=== PATIENT | female | born 1970 | race Caucasian/White ===

== ENCOUNTER 2021-01-22 10:06 | Outpatient (REF) | payer MEDICAID, SELFPAY ==
--- NOTE | ~2021-01-22 | MM_ITS ---
EXAMINATION: MM DIAGNOSTIC DIGITAL BREAST TOMOSYNTHESIS, BILATERAL US DIAGNOSTIC ULTRASOUND BREAST, LEFT CLINICAL INFORMATION: Due for yearly exam. Patient notes palpable area of concern upper outer left breast. Prior history benign right stereotactic biopsy 2014 for calcifications. The lifetime risk of breast cancer based on the Tyrer-Cuzick Model is 5%. COMPARISON: Mammography: 09/15/2019, 09/13/2018, 09/09/2017. TECHNIQUE: Digital breast tomosynthesis is performed in both the craniocaudal and mediolateral oblique views along with computer-aided detection (CAD). Synthesized 2D images are generated from the tomosynthesis. Additional spot left CC and spot left ML views are obtained. Ultrasound left breast is targeted to the area of clinical concern upper outer quadrant. Grayscale imaging and color Doppler are performed without and with harmonics. Additional imaging left axilla also included. FINDINGS: The breasts are heterogeneously dense, which may obscure small masses (ACR BI-RADS breast composition Category c). The right breast shows no interval mass or architectural abnormality. There are regional calcifications again noted upper outer quadrant right breast similar to prior diagnostic exam 2018. There is biopsy clip marker upper outer quadrant. 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 In the area of concern left upper outer quadrant, there is interval parenchymal asymmetry, representing change from prior study. The axilla and skin contours are unremarkable. Ultrasound left breast demonstrates irregular hypoechoic heterogeneous mass corresponding to the area of palpable concern measuring at least 3.3 cm in greatest dimension with scattered inhomogeneous posterior shadowing. Additional imaging left axilla shows no lymphadenopathy. Results are discussed with the patient at time of visit. Ultrasound-guided core biopsy of the left breast mass is recommended. MM/MM tomosynthesis diagnostic BI IMPRESSION: 1. Left: Irregular mass in the area of palpable concern upper outer quadrant. 2. Right: No mammographic evidence of malignancy. ASSESSMENT: BI-RADS 5: Highly Suggestive of Malignancy RECOMMENDATION: Ultrasound-guided core biopsy mass left breast upper outer quadrant. This patient's information was entered into a reminder system with a target due date for their next mammogram.
== END 2021-01-22 10:07 | disposition home or self-care (01) ==
LOC: HO.MAMMO 10:06
PROVIDERS: PCP Advanced Practice Midwife; Visit Provider Advanced Practice Midwife
DX: N63.21 Unspecified lump in the left breast, upper outer quadrant (principal)
CPT/HCPCS: 76642; 77062; 77066

== ENCOUNTER → 2021-01-24 15:36 | Outpatient (BNVA) | payer MEDICAID, SELFPAY | PROVIDERS: PCP Advanced Practice Midwife; Visit Provider Surgery | DX: R92.8 Other abnormal and inconclusive findings on diagnostic imaging of breast (principal) | CPT/HCPCS: 99202 ==

== ENCOUNTER 2021-01-29 07:40 | Outpatient (REF) | payer MEDICAID, SELFPAY ==
--- NOTE | ~2021-01-29 | MM_ITS ---
EXAMINATION: ULTRASOUND GUIDED CORE BIOPSY BREAST, LEFT POST PROCEDURE DIGITAL MAMMOGRAM, LEFT CLINICAL INFORMATION: Irregular hypoechoic mass upper outer left breast 3.3 cm. COMPARISON: Mammography and targeted left breast ultrasound 01/22/2021. FINDINGS: Proper informed consent is obtained from the patient after discussion of the procedure, potential risks and complications, and alternatives. Patient was given an opportunity for questions. The patient appeared to understand. The patient consented to the procedure and signed the consent form. GUIDANCE: Ultrasound-guided; aseptic technique. LESION: Irregular hypoechoic mass upper outer left breast 3.3 cm. APPROACH: Oblique lateral medial. ANESTHESIA: 10 mL 1% lidocaine. DERMATOTOMY: Single skin ade dermatotomy performed. NEEDLE: 14-gauge Achieve core biopsy device with 13.5-gauge co-axial guide needle. CORES: 5. CLIP: HydroMARK; shape: butterfly. POST PROCEDURE UNILATERAL DIGITAL MAMMOGRAM: The post biopsy mammogram is performed in separate room using separate digital mammography equipment from the biopsy procedure. CC and ML views are obtained. The breasts are heterogeneously dense, which may obscure small masses (breast composition category: c). The clip marker is in position. No gross hematoma. The patient tolerated the procedure well. No immediate complications. Home instructions reviewed with the patient. Final pathology results are pending. MM/MM diagnostic mammo unilat LT IMPRESSION: 1. Status post ultrasound-guided core biopsy left breast. 2. Clip placed: HydroMARK; shape: butterfly. 3. Pathology pending. An addendum report will be issued.
== END 2021-01-29 07:41 | disposition home or self-care (01) ==
LOC: HO.MAMMO 07:40
PROVIDERS: Visit Provider Surgery
DX: R92.8 Other abnormal and inconclusive findings on diagnostic imaging of breast (principal); N63.21 Unspecified lump in the left breast, upper outer quadrant; C50.912 Malignant neoplasm of unspecified site of left female breast; Z17.1 Estrogen receptor negative status [ER-]
CPT/HCPCS: 19083; 77065; 88305; 88360

== ENCOUNTER → 2021-02-01 09:21 | Outpatient (BNVA) | payer MEDICAID, SELFPAY | PROVIDERS: PCP Advanced Practice Midwife; Visit Provider Surgery | DX: C50.912 Malignant neoplasm of unspecified site of left female breast (principal) | CPT/HCPCS: 99212 ==

== ENCOUNTER 2021-02-14 06:56 | Day surgery (SDC) | payer MEDICAID, SELFPAY ==
[2021-02-07 13:34] VITALS: BMI 32.8
--- NOTE | 2021-02-13 09:16 | P.CONAN_ITS ---
Documented by User: Meredith Leigh 02/13/21 09:18 HPI - Anesthesia Eval Consult details Narrative: 50yo F for Left Breast Lumpectomy, Sentinal Node, Needle Loc PMFSH Active Problems Active Problems: All Active Problems (Updated 02/07/21 @ 13:40 by Chichi Rosa) Abnormal mammogram of left breast (Acute) Invasive ductal carcinoma of left breast (Acute) Past Medical History Medical History Asthma Depression GERD (gastroesophageal reflux disease) HIV (human immunodeficiency virus infection) Surgical History Surgical History History of excision of mass History of hysterectomy Social History Social History Are you a primary career technical education instructor to a significant other at home: No Do you presently have visiting nurse or other home services: No Alcohol intake: never Smoking Status: Never smoker Use of substances other than those prescribed or required for medical reasons: No Have you been hit, kicked, punched, or otherwise hurt by someone within the past year? If so, by whom?: No Advance Directives Information Provided: No Recently lost weight without trying: No Meds Allergies Allergy/AdvReac Type Severity Reaction Status Date / Time codeine [Codeine] Allergy Mild RASH Verified 02/14/21 07:05 Home Medications Medication Instructions Recorded Confirmed Last Taken Type albuterol sulfate 1 amp INHALATION Q6H PRN 02/07/21 02/07/21 Unknown History albuterol sulfate [ProAir HFA] 2 puff INHALATION Q4H PRN 02/07/21 02/07/21 Unknown History cetirizine 1 tab PO BEDTIME 02/07/21 02/07/21 Unknown History citalopram 1.5 tab PO BEDTIME 02/07/21 02/07/21 Unknown History clonidine HCl 0.2 mg PO BEDTIME 02/07/21 02/07/21 Unknown History dolutegravir [Tivicay] 1 tab PO DAILY 02/07/21 02/07/21 Unknown History emtricitabine-tenofovir alafen 1 tab PO DAILY 02/07/21 02/07/21 02/14/21 06:00 History [Descovy] fluticasone propionate 1 spray INTRANASAL BID 02/07/21 02/07/21 Unknown History lorazepam 1 tab PO BEDTIME PRN 02/07/21 02/07/21 Unknown History montelukast 1 tab PO BEDTIME 02/07/21 02/07/21 Unknown History pantoprazole 1 tab PO QAM 02/07/21 02/07/21 02/14/21 06:00 History zolpidem 1 tab PO BEDTIME PRN 02/07/21 02/07/21 Unknown History Exam Exam Date and Time: February 13, 2021 0916 Height,Weight and Vital Signs: Height 5 ft 4 in Weight 86.6 kg Assessment and Plan Assessment Anesthesia Assessment: Chart Reviewed Documented by User: Jenna Browning 02/14/21 09:30 [facility] Past Medical History Medical History Asthma Depression GERD (gastroesophageal reflux disease) HIV (human immunodeficiency virus infection) Surgical History Surgical History History of excision of mass History of hysterectomy Social History Social History Are you a primary career technical education instructor to a significant other at home: No Do you presently have visiting nurse or other home services: No Alcohol intake: never Smoking Status: Never smoker Use of substances other than those prescribed or required for medical reasons: No Have you been hit, kicked, punched, or otherwise hurt by someone within the past year? If so, by whom?: No Advance Directives Information Provided: No Recently lost weight without trying: No Meds Allergies Allergy/AdvReac Type Severity Reaction Status Date / Time codeine [Codeine] Allergy Mild RASH Verified 02/14/21 07:05 Home Medications Medication Instructions Recorded Confirmed Last Taken Type albuterol sulfate 1 amp INHALATION Q6H PRN 02/07/21 02/07/21 Unknown History albuterol sulfate [ProAir HFA] 2 puff INHALATION Q4H PRN 02/07/21 02/07/21 Unknown History cetirizine 1 tab PO BEDTIME 02/07/21 02/07/21 Unknown History citalopram 1.5 tab PO BEDTIME 02/07/21 02/07/21 Unknown History clonidine HCl 0.2 mg PO BEDTIME 02/07/21 02/07/21 Unknown History dolutegravir [Tivicay] 1 tab PO DAILY 02/07/21 02/07/21 Unknown History emtricitabine-tenofovir alafen 1 tab PO DAILY 02/07/21 02/07/21 02/14/21 06:00 History [Descovy] fluticasone propionate 1 spray INTRANASAL BID 02/07/21 02/07/21 Unknown History lorazepam 1 tab PO BEDTIME PRN 02/07/21 02/07/21 Unknown History montelukast 1 tab PO BEDTIME 02/07/21 02/07/21 Unknown History pantoprazole 1 tab PO QAM 02/07/21 02/07/21 02/14/21 06:00 History zolpidem 1 tab PO BEDTIME PRN 02/07/21 02/07/21 Unknown History Exam Airway Mallampati Class: II TM Dist: >3cm Neck ROM: Full Assessment and Plan Assessment Anesthesia Assessment: Anesthesia Plan Discussed and Chart Reviewed Final Anesthetic Review NPO: Yes ASA Class: III Final Preanesthetic Review: No Changes in Pt Med Stat, Meds/Allgs Chart Reviewed, Consent Obtained/Reviewed and Anes Risks/Benef Reviewed Patient Risk: Intermediate Procedure Risk: Low Assessment/Block/Sedation in SS: Assess/Block/Sedation-SS Anesthetic Plan Anesthetic Plan: GA Disposition: Standard PACU
[2021-02-14] VITALS (9 sets, daily range): BP systolic 119–140; BP diastolic 62–75; PULSE 72–86; RESP 16–20; TEMP 36.1–37.1; O2SAT 96–100
--- NOTE | ~2021-02-14 | NM_ITS ---
EXAMINATION: NM LYMPH SCINTIGRAPHY CLINICAL INFORMATION: Left breast cancer. COMPARISON: None TECHNIQUE: Following explaining left breast sentinel node procedure, benefits and risk, a written consent was obtained by Dr. Longoria. The area of the left breast areola was cleaned and draped in usual sterile manner. 0.5 mCi of LYMPHOSEEK divided in 4 equal doses was injected subcutaneous in 4 quadrants around the left breast areola. Imaging was obtained 30 minutes later. Patient tolerated the procedure well. FINDINGS: There is adequate isotope activity seen around the left breast areola. There are 2 lymph nodes visualized in superior left breast and left axilla. NM/NM sentinel node w imaging IMPRESSION: Two lymph node activity seen in the left superior breast and left anterior axilla on left breast lymphoscintigraphy.
--- NOTE | ~2021-02-14 | MM_ITS ---
EXAMINATION: MM MAMMOGRAM GUIDED NEEDLE LOCALIZATION BREAST, LEFT MM NEEDLE LOCALIZATION SPECIMEN FROM THE LEFT BREAST CLINICAL INFORMATION: Left breast cancer COMPARISON: January 29, 2021 and January 22, 2021 TECHNIQUE NEEDLE LOC: Proper informed consent is obtained from the patient after discussion of the procedure, potential risks and complications, and alternatives including declining the procedure today. Patient was given an opportunity for questions. The patient appeared to understand. The patient consented to the procedure and signed the consent form. GUIDANCE: Digital mammography. APPROACH: Superior. TARGET: Clip with mass. ANESTHESIA: lidocaine 1%: 4 mL. LOCALIZATION MARKER: [place] [employer]. 7.5 cm long The skin is prepped and local anesthesia administered. The needle is positioned and position assessed with mammography. The wire is hooked into position. Alloway needle protector placed. The patient tolerated the procedure well and had no immediate complication. Following the procedure, 4% lidocaine ointment was administered to the left areola and covered with Tegaderm in anticipation of nuclear lymphoscintigraphy injection for sentinel lymph node mapping. TECHNIQUE SPECIMEN RADIOGRAPH: Imaging of the excised specimen is performed using digital mammography in 1 view. FINDINGS SPECIMEN RADIOGRAPH: The specimen shows the needle and hookwire are delivered intact. The biopsy clip marker is identified in the specimen. Results were called to Dr. Marlon Li in the operating room at the time of imaging. MM/MM needle loc LT IMPRESSION: 1. Status post left breast needle localization with wire hooked into position. 2. Post operative specimen radiograph obtained.
[2021-02-14] MEDS: Lactated Ringers 1,000 ML 100 ML IVCONT (07:51)
--- NOTE | 2021-02-14 07:51 | MHC.SHP ---
Pre-Procedural Eval Section A The patient is an INPATIENT: No Changes since office visit: Yes Patient answered all questions; No Cold of Flu in the past 2 weeks, No New Medical Problems and No Changes in Medication The History & Physical has been completed within 30 days and I have reviewed it.: Yes Section B Chief Complaint: Invasive ductal carcinoma of left breast Allergies: Allergies Allergy/AdvReac Type Severity Reaction Status Date / Time codeine [Codeine] Allergy Mild RASH Verified 02/14/21 07:05 Plan Diagnosis/Plan: Unchanged I have reviewed the history and physical and performed a pertinent physical examination on my patient. No changes have occurred unless specified.
--- NOTE | 2021-02-14 14:24 | P.OP_ITS ---
Operative Note Operative Note Date of Service: 02/14/21 Narrative: Preoperative diagnosis: Invasive ductal carcinoma left breast Postoperative diagnosis: Same Procedure: Left breast lumpectomy with needle localization, sentinel node biopsy left axilla Surgeon: Marlon Li MD Director Of Casework: None Anesthesia: General LMA Indications for procedure: 50-year-old female presenting with a palpable mass in the left breast at the upper outer quadrant status post ultrasound-guided co re biopsy. Pathology revealed an invasive ductal carcinoma, triple negative measuring approximately 3 cm on examination. She presents today for lumpectomy and sentinel node biopsy. Operative findings: Large mass at least 4-5 cm in diameter located in the upper outer quadrant, single sentinel node identified left axilla Specimen: 1. Left breast lumpectomy, 2. [place] node, 3. Inferior medial border wider excision. Estimated blood loss: 25 mL Procedure details: Patient was brought to the OR and placed in a supine position. After administering general anesthesia, the left breast was prepped with ChloraPrep draped in a sterile fashion. A surgical time-out was called and the consent confirmed. Preoperative antibiotics were administered and the dye boots were in place. Local anesthesia consisting of 0.25% Sensorcaine with epinephrine was then infiltrated around the localizing needle. Curvilinear incision was made around the entrance of the needle and carried out through subcutaneous tissue. Superior and inferior skin flaps were then created. The lesion came close to the skin and the lesion was shaved off the skin using electrocautery. A core of tissue surrounding the needle was then dissected using a combination of sharp and electrocautery dissection. Every attempt was made to dissect wide of the palpable mass to assure complete removal of the specimen. The specimen was then marked with a long suture on the lateral margin, short suture on the superior margin and a loop suture in the deep margin. Specimen was sent to Radiology department for specimen x-ray followed by gross pathology. Attention was then directed to the left axilla. Using the gamma probe the area of increased reactivity was identified in the mid axilla. Local anesthesia was then infiltrated in a transverse incision made below the axillary hair line. Incision was then made in a curvilinear fashion at this location carried out through subcutaneous tissue past the clavipectoral fascia and into the axillary compartment. Gamma probe was then used to identify area of increased reactivity. A single node was identified with 811 counts. This was sent as sentinel node 1. Additional examination of the axilla revealed no other areas of radio activity. No palpable nodes were identified. The wounds were then irrigated with saline solution. Clavipectoral fascia was reapproximated using interrupted 3-0 Polysorb sutures. Dermis was reapproximated using interrupted 3-0 Polysorb sutures. Skin was then closed using a running subcuticular 4 0 Polysorb suture. The pathology was reviewed with the pathologist in the laboratory. Margins appeared close to the anterior, medial and inferior margins. As the lesion was shaved off skin no further margin was possible in the anterior margin. A wider excision of the inferior medial margin was then performed. This was also sent to pathology. After assuring complete removal of the specimen, the wounds were checked for hemostasis. Wounds were irrigated with saline and suctioned dry. Deep breast tissue was then reapproximated using interrupted 3-0 Polysorb sutures. Dermis was reapproximated using interrupted 3-0 Polysorb sutures. Skin was then closed using a running subcuticular 4-0 Polysorb suture. Steri-Strips 2 x 2 gauze and Tegaderm were then applied. The patient tolerated the procedure well. Sponge, instrument, and needle counts reported as correct. The patient was transferred to PACU in stable condition. Breast [place] Node Biopsy Substrate(s) used for sentinel node biopsy in the non-neoadjuvant setting: Radiotracer Substrate(s) used for sentinel node biopsy in the neoadjuvant setting: N/A All colored nodes or non-colored nodes present at the end of a dye filled lymphatic channel were removed, if dye was used as the substrate for localization: N/A All significantly radioactive nodes were removed, if radionuclide was used as the substrate for localization: Yes All palpably suspicious nodes were removed, if present: Yes If clips were placed in pathology-involved nodes, those nodes were identified and removed: N/A General Surg. - Synoptic Notes Breast [place] Node Biopsy Substrate(s) used for sentinel node biopsy in the non-neoadjuvant setting: Radiotracer Substrate(s) used for sentinel node biopsy in the neoadjuvant setting: N/A All colored nodes or non-colored nodes present at the end of a dye filled lymphatic channel were removed, if dye was used as the substrate for localization: N/A All significantly radioactive nodes were removed, if radionuclide was used as the substrate for localization: Yes All palpably suspicious nodes were removed, if present: Yes If clips were placed in pathology-involved nodes, those nodes were identified and removed: N/A
[2021-02-14] MEDS: fentaNYL citrate/PF 100 MCG/2 ML VIAL 50 MCG IVPUSH ×2 (14:39→14:48)
[2021-02-14] MEDS: Acetaminophen 325 MG TABLET 650 MG PO (14:39)
[2021-02-14] MEDS: oxyCODONE HCl Immed Release 5 MG TABLET PO (14:40)
== END 2021-02-14 15:31 | disposition home or self-care (01) ==
PROVIDERS: Visit Provider Surgery
PROC: (CPT 19301; principal; 2021-02-14 11:50)
PROC: (CPT 19301; 2021-02-14 11:50)
PROC: (CPT 19301; 2021-02-14 11:50)
DX: C50.412 Malignant neoplasm of upper-outer quadrant of left female breast (principal); C77.3 Secondary and unspecified malignant neoplasm of axilla and upper limb lymph nodes; Z17.1 Estrogen receptor negative status [ER-]; J45.909 Unspecified asthma, uncomplicated; Z79.51 Long term (current) use of inhaled steroids; B20 Human immunodeficiency virus [HIV] disease; Z79.899 Other long term (current) drug therapy; Z88.8 Allergy status to other drugs, medicaments and biological substances
CPT/HCPCS: 19301; 38525; 19281; 78195; 88307; 88329; 88360; A4648; A9520; J0690; J1100; J2250; J2405; J3010

== ENCOUNTER → 2021-02-22 09:22 | Outpatient (BNVA) | payer MEDICAID, SELFPAY | PROVIDERS: PCP Advanced Practice Midwife; Visit Provider Surgery | DX: C50.912 Malignant neoplasm of unspecified site of left female breast (principal) | CPT/HCPCS: 99212 ==

== ENCOUNTER 2021-02-27 08:17 | Inpatient (IN) | payer MEDICAID, SELFPAY ==
--- NOTE | 2021-02-26 08:58 | P.CONAN_ITS ---
Documented by User: Meredith Abraham 02/26/21 09:03 HPI - Anesthesia Eval Consult details Narrative: 50yo F for Left Mastectomy Modified Radical s/p lumpectomy 02/14/21 with GA-LMA [facility] Active Problems Active Problems: All Active Problems (Updated 02/07/21 @ 13:40 by Chichi Rosa) Abnormal mammogram of left breast (Acute) Invasive ductal carcinoma of left breast (Acute) Past Medical History Medical History Asthma Depression GERD (gastroesophageal reflux disease) HIV (human immunodeficiency virus infection) Surgical History Surgical History History of excision of mass History of hysterectomy History of lumpectomy of left breast Social History Social History Alcohol intake: never Smoking Status: Never smoker Use of substances other than those prescribed or required for medical reasons: No Meds Allergies Allergy/AdvReac Type Severity Reaction Status Date / Time codeine [Codeine] Allergy Mild RASH Verified 02/27/21 08:27 Home Medications Medication Instructions Recorded Confirmed Last Taken Type Descovy 1 tab PO DAILY 02/07/21 02/07/21 02/27/21 07:00 History Tivicay 1 tab PO DAILY 02/07/21 02/07/21 02/27/21 07:00 History albuterol sulfate 1 amp INHALATION Q6H PRN 02/07/21 02/07/21 Unknown History albuterol sulfate [ProAir HFA] 2 puff INHALATION Q4H PRN 02/07/21 02/07/21 Unknown History cetirizine 1 tab PO BEDTIME 02/07/21 02/07/21 Unknown History citalopram 1.5 tab PO BEDTIME 02/07/21 02/07/21 Unknown History clonidine HCl 0.2 mg PO BEDTIME 02/07/21 02/07/21 Unknown History lorazepam 1 tab PO BEDTIME PRN 02/07/21 02/07/21 Unknown History montelukast 1 tab PO BEDTIME 02/07/21 02/07/21 Unknown History pantoprazole 1 tab PO QAM 02/07/21 02/07/21 02/14/21 06:00 History zolpidem 1 tab PO BEDTIME PRN 02/07/21 02/07/21 Unknown History Exam Exam Date and Time: February 26, 2021 0858 Assessment and Plan Assessment Anesthesia Assessment: Chart Reviewed Documented by User: Dayanna Blanca 02/27/21 09:02 [facility] Past Medical History Medical History Asthma Depression GERD (gastroesophageal reflux disease) HIV (human immunodeficiency virus infection) Surgical History Surgical History History of excision of mass History of hysterectomy History of lumpectomy of left breast Social History Social History Alcohol intake: never Smoking Status: Never smoker Use of substances other than those prescribed or required for medical reasons: No Meds Allergies Allergy/AdvReac Type Severity Reaction Status Date / Time codeine [Codeine] Allergy Mild RASH Verified 02/27/21 08:27 Home Medications Medication Instructions Recorded Confirmed Last Taken Type Descovy 1 tab PO DAILY 02/07/21 02/07/21 02/27/21 07:00 History Tivicay 1 tab PO DAILY 02/07/21 02/07/21 02/27/21 07:00 History albuterol sulfate 1 amp INHALATION Q6H PRN 02/07/21 02/07/21 Unknown History albuterol sulfate [ProAir HFA] 2 puff INHALATION Q4H PRN 02/07/21 02/07/21 Unknown History cetirizine 1 tab PO BEDTIME 02/07/21 02/07/21 Unknown History citalopram 1.5 tab PO BEDTIME 02/07/21 02/07/21 Unknown History clonidine HCl 0.2 mg PO BEDTIME 02/07/21 02/07/21 Unknown History lorazepam 1 tab PO BEDTIME PRN 02/07/21 02/07/21 Unknown History montelukast 1 tab PO BEDTIME 02/07/21 02/07/21 Unknown History pantoprazole 1 tab PO QAM 02/07/21 02/07/21 02/14/21 06:00 History zolpidem 1 tab PO BEDTIME PRN 02/07/21 02/07/21 Unknown History Exam Airway Mallampati Class: II TM Dist: >3cm Neck ROM: Full Loose/Missing/Broken Teeth: No Heart: RRR Lungs: CTA Assessment and Plan Assessment Anesthesia Assessment: Anesthesia Plan Discussed and Chart Reviewed Final Anesthetic Review NPO: Yes ASA Class: II Final Preanesthetic Review: Meds/Allgs Chart Reviewed, Consent Obtained/Reviewed and Anes Risks/Benef Reviewed Patient Risk: Low Procedure Risk: Intermediate Anesthetic Plan Anesthetic Plan: GA Disposition: Standard PACU
[2021-02-27] VITALS (17 sets, daily range): BP systolic 117–150; BP diastolic 63–81; PULSE 73–105; RESP 11–20; TEMP 36.1–36.9; O2SAT 95–99; BMI 29.0
[2021-02-27] MEDS: Lactated Ringers 1,000 ML 100 ML IVCONT ×2 (08:58→15:34)
[2021-02-27 09:01] LABS: COVID-19 Test Negative (Negative); IDNOW Serial# 9DD0AD1C
--- NOTE | 2021-02-27 09:34 | MHC.SHP ---
Pre-Procedural Eval Section A The patient is an INPATIENT: No Changes since office visit: Yes Patient answered all questions; No Cold of Flu in the past 2 weeks, No New Medical Problems and No Changes in Medication The History & Physical has been completed within 30 days and I have reviewed it.: Yes Section B Chief Complaint: S/P Left Modified Radical Mastectomy Allergies: Allergies Allergy/AdvReac Type Severity Reaction Status Date / Time codeine [Codeine] Allergy Mild RASH Verified 02/27/21 08:27 Plan Diagnosis/Plan: Unchanged I have reviewed the history and physical and performed a pertinent physical examination on my patient. No changes have occurred unless specified.
--- NOTE | 2021-02-27 11:57 | W.PM.OPN ---
Operative Note Operative Note Date of Service: 02/27/21 Narrative: Preoperative diagnosis: Invasive ductal carcinoma left breast Postoperative diagnosis: Same Procedure: Left modified radical mastectomy Surgeon: Marlon Li MD Rolling Machine Tender: Donato Oneill MD Anesthesia: General LMA Indications for procedure: 50-year-old female presenting with a recently identified invasive ductal carcinoma in the upper outer quadrant of the left breast. She previously underwent a left breast lumpectomy with sentinel node biopsy which revealed a grade 3 invasive ductal carcinoma, 4 cm in diameter with positive anterior margins and 1 positive sentinel node. She presents today for modified radical mastectomy. Operative findings: Patient was found to have a well-healed incision in the upper outer quadrant of the left breast. A left axillary incision was also identified. Several enlarged lymph nodes were palpable within the axilla. A single nodule was noted in the lower flap of the breast which was sent for frozen section. This was noted to be benign. Specimen: Left breast, including axillary dissection Estimated blood loss: 20 mL Complications: None Procedure details: Patient was brought to the OR and placed in the position after administering general anesthesia the patient's left breast was prepped with ChloraPrep and draped in a sterile fashion. The prep included the axilla and upper arm. A surgical time-out was called the consent confirmed. Patient received preoperative antibiotics and Venodyne boots were placed. Local anesthesia consisting of 0.5% Sensorcaine with epinephrine was infiltrated around the breast. An elliptical incision was then created oriented obliquely from the lateral sternum to the axilla including both previous incisions. The incision was carried out through subcutaneous tissue and up to the breast capsule. Beginning in the superior electrocautery was used to dissect the breast tissue from the skin extending beyond the previous incision up to the base of the clavicle. Dissection was then continued posteriorly to the chest wall. The dissection was started from medial to lateral, superficial to deep. When the superior skin flap was completely dissected up to the clavicle attention was then directed to the inferior skin flap which was similarly dissected using electrocautery dissecting the subcutaneous tissue off the breast tissue down to the inferior costal margin. At this point the breast was dissected off the chest wall again beginning medial to lateral, superior to inferior. Hemostasis was assured all times using electrocautery and free ties of 3-0 Polysorb. Dissection was continued around the pectoralis muscle including the pectoralis fascia. When the edge of pectoralis major was identified dissection was continued laterally to the pectoralis minor including Sheridan's nodes. The clavipectoral fascia was then entered in the axillary contents dissected both the level 1 and level 2 nodes were included. A rim of lymphatic tissue was kept against the axillary vein. The long thoracic and thoracodorsal nerves were identified and preserved. Intercostal brachialis nerve was sacrificed due to its proximity to the tumor. Dissection was continued laterally towards the latissimus Lorenzo muscle which was also identified and dissected free. The specimen was then removed and sent to pathology for further examination. Wounds were then thoroughly irrigated with saline solution and suctioned dry. The chest wall and skin flaps were checked for hemostasis. Axilla was also checked for hemostasis. Two large (# 10) Ehsan-Sharma drains were then placed 1 in the inferior skin flap and the 2nd into the axilla. These were brought out through a separate stab wound in the lateral chest wall. These were secured to the skin using a 3-0 nylon suture. Skin edges were then reapproximated using interrupted 3 0 Polysorb sutures in dermis. Skin was then closed using skin elizabeth. Sterile dressings including sterile gauze and Tegaderm were then applied. The Ehsan-Sharma drains were connected to bulb suction. The patient tolerated the procedure well. Sponge, instrument, needle counts were reported as correct. Patient was transferred to PACU in stable condition.
[2021-02-27] MEDS: Acetaminophen 325 MG TABLET 650 MG PO (12:23)
[2021-02-27] MEDS: oxyCODONE HCl Immed Release 5 MG TABLET PO ×3 (12:24→22:42)
[2021-02-27] MEDS: fentaNYL citrate/PF 100 MCG/2 ML VIAL 50 MCG IVPUSH ×3 (12:30→12:49)
[2021-02-27] MEDS: ondansetron HCL 4 MG/2 ML VIAL IVPUSH (19:34)
[2021-02-27] MEDS: Temazepam 15 MG CAPSULE PO (21:35)
[2021-02-28] MEDS: Lactated Ringers 1,000 ML 100 ML IVCONT ×3 (01:29→23:32)
[2021-02-28 04:00] VITALS: BP 123/75; PULSE 94; RESP 20; TEMP 36.9; O2SAT 99
[2021-02-28] MEDS: Morphine Sulfate 4 MG/ML CARTRIDGE IVPUSH ×5 (04:45→21:10)
--- NOTE | 2021-02-28 07:15 | P.PNGS_ITS ---
Subjective Subjective Date of Service: 02/28/21 Interval history: Late entry: Reports pain in the left axilla; LUAN drains with sanguinous discharge, high output over night. Patient reports feeling dizzy when ambulating. Physical Exam Vital Signs: Vital Signs: Last Vital Signs Temp 98.2 F 03/01/21 03:46 Pulse 76 03/01/21 03:46 Resp 16 03/01/21 03:46 BP 111/54 L 03/01/21 03:46 Pulse Ox 96 03/01/21 03:46 Body Mass Index 29.0 Const: General: cooperative and healthy appearing Chest: Other: Dressings with some bloody discharge, chest wall tender to palpation. LUAN intact; sanguinous output Chest/axillae images: 1. Resp: Effort & Inspection: normal respiratory effort GI: Inspection: Yes normal to inspection Extrem: General: Yes no clubbing, cyanosis or edema Progress Note: A&P Assessment and plan (1) Invasive ductal carcinoma of left breast: Status: Acute Assessment and Plan: Postop day 1 following left modified radical mastectomy. Patient reports chest and axillary discomfort. Ehsan-Faiza are producing sanguinous output which will need to be monitored further. Will check CBC this morning. Start gabapentin for axillary pain. Await pathology results. Fall Risk Details Current Medications: Current Medications Generic Name Dose Route Start Last Admin Trade Name Freq PRN Reason Stop Dose Admin Al Hydroxide/Mg Hydroxide 30 ml 02/27/21 15:17 Magnesium Hydrox/Alum Hydrox 30 Ml Oral.Susp PO Q4H PRN Heartburn/Nausea Albuterol Sulfate 2.5 mg 02/28/21 11:03 Albuterol Sulfate (0.083%) 2.5 Mg/3 Ml Vial.Neb INHALE Q6H PRN Wheezing Albuterol Sulfate 2 puff 02/28/21 11:03 Albuterol Sulfate 90 Mcg 8 Gm Inhaler INHALE Q4H PRN Wheezing Clonidine HCl 0.2 mg 02/28/21 21:00 02/28/21 21:00 Clonidine Hcl 0.1 Mg Tablet PO 0.2 mg BEDTIME [facility]WA Administration Protocol Dolutegravir Sodium 50 mg 03/01/21 09:00 Dolutegravir Sodium 50 Mg Tablet PO DAILY [facility] Emtricitabine/Tenofovir Alafenamide 1 tab 03/01/21 09:00 Emtricitabine/Tenofov Alafenam Tablet PO DAILY [facility] Escitalopram Oxalate 15 mg 02/28/21 21:00 02/28/21 21:01 Escitalopram Oxalate 5 Mg Tablet PO 15 mg BEDTIME [facility] Administration Gabapentin 300 mg 02/28/21 09:00 02/28/21 21:01 Gabapentin 300 Mg Capsule PO 300 mg BID [facility]WA Administration Lactated Ringer's 1,000 mls @ 100 mls/hr 02/27/21 08:30 02/28/21 23:32 Lr IVCONT 100 mls/hr .Q10H [facility] Administration Loratadine 10 mg 02/28/21 21:00 02/28/21 21:01 Loratadine 10 Mg Tablet PO 10 mg BEDTIME [facility] Administration Lorazepam 0.5 mg 02/28/21 11:03 02/28/21 21:03 Lorazepam 0.5 Mg Tablet PO 0.5 mg BEDTIME PRN Administration anxiety Magnesium Hydroxide 30 ml 02/27/21 15:17 Milk Of Magnesia 30 Ml Oral.Susp PO DAILY PRN Constipation Montelukast Sodium 10 mg 02/28/21 21:00 02/28/21 21:01 Montelukast Sodium 10 Mg Tablet PO 10 mg BEDTIME [facility] Administration Morphine Sulfate 4 mg 02/27/21 15:17 02/28/21 21:10 Morphine Sulfate 4 Mg/Ml Cartridge IVPUSH 4 mg Q3H PRN Administration Pain, Severe (Pain Scale 7-10) Omeprazole 20 mg 03/01/21 09:00 Omeprazole 20 Mg Capsule.Dr PO DAILY [facility] Ondansetron HCl 4 mg 02/27/21 15:17 02/27/21 19:34 Ondansetron Hcl 4 Mg/2 Ml Vial IVPUSH 4 mg Q8H PRN Administration Nausea and Vomiting Oxycodone HCl 5 mg 02/27/21 15:17 02/28/21 19:11 Oxycodone Hcl Immed Release 5 Mg Tablet PO 5 mg Q6H PRN Administration Pain, Moderate (Pain Scale 4-6 Pharmacy Consult 1 each 02/27/21 15:17 Consult Rx Perform Med Rec MISCELLANE ONCE PRN Consult order Sodium Chloride 3 ml 02/27/21 16:00 02/28/21 21:01 0.9 % Sodium Chloride Flush 3 Ml Syringe IVFLUSH Not Given QSHIFT [facility] Zolpidem Tartrate 10 mg 02/28/21 11:03 02/28/21 21:00 Zolpidem Tartrate 5 Mg Tablet PO 10 mg BEDTIME PRN Administration Insomnia Time Spent With Patient Time: Total time spent is greater than 50% in coordination of care (as documented) at patient's floor/unit and/or counseling patient: Time with patient: 15 - 24 minutes
[2021-02-28 08:00] VITALS: BP 113/58; PULSE 84; RESP 17; TEMP 37.6; O2SAT 100
[2021-02-28 10:01] LABS: MANUAL DIFF FLAG NO
[2021-02-28 10:05] LABS: Basophils Percent Auto 0.2 % (0-2); Eosinophils Percent Auto 0.2 % (0-4); Hematocrit 28.1 % (37-47); Hemoglobin 9.4 g/dl (12.0-16.0); Imm Gran Abs Auto 0.04 X10*3/uL (0.00-0.03); Imm Gran Pct Auto 0.3 % (0.0-0.4); Lymphocytes Absolute Auto 3.5 X10*3/uL (1.2-4.9); Lymphocytes Percent Auto 27.3 % (20-40); Mean Corpuscular HGB Conc 33.5 g/dl (31.0-35.0); Mean Corpuscular Hemoglobin 31.1 pg (27.0-33.0); Monocytes Absolute Auto 0.9 X10*3/uL (0.1-1.2); Monocytes Percent Auto 6.8 % (2-11); Neutrophils Absolute Auto 8.4 X10*3/uL (2.0-8.3); Neutrophils Percent Auto 65.2 % (45-73); Platelet Count 164 X10*3/uL (160-400); Red Blood Count 3.02 X10*6/uL (4.20-5.50); Red Cell Distribution Width 13.4 % (11.0-16.0); White Blood Count 12.8 X10*3/uL (4.8-10.8)
[2021-02-28 10:12] LABS: INTERNATIONAL NORM RATIO 1.1 (0.9-1.1); Prothrombin Time 13.4 SEC (10.8-13.0)
[2021-02-28] MEDS: oxyCODONE HCl Immed Release 5 MG TABLET PO ×2 (10:57→19:11)
[2021-02-28] MEDS: Gabapentin 300 MG CAPSULE PO ×2 (10:57→21:01)
[2021-02-28 12:00] VITALS: BP 132/62; PULSE 86; RESP 17; TEMP 37.1; O2SAT 98
[2021-02-28 15:40] VITALS: BP 120/56; PULSE 87; RESP 16; TEMP 36.9; O2SAT 98
[2021-02-28 19:21] VITALS: BP 144/73; PULSE 78; RESP 20; TEMP 36.4; O2SAT 98
[2021-02-28] MEDS: Zolpidem Tartrate 5 MG TABLET 10 MG PO (21:00)
[2021-02-28] MEDS: cloNIDine HCL 0.1 MG TABLET 0.2 MG PO (21:00)
[2021-02-28] MEDS: Escitalopram Oxalate 5 MG TABLET 15 MG PO (21:01)
[2021-02-28] MEDS: Loratadine 10 MG TABLET PO (21:01)
[2021-02-28] MEDS: Montelukast Sodium 10 MG TABLET PO (21:01)
[2021-02-28] MEDS: LORazepam 0.5 MG TABLET PO (21:03)
[2021-02-28 23:27] VITALS: BP 111/65; PULSE 88; RESP 16; TEMP 36.7; O2SAT 98
[2021-03-01] VITALS (7 sets, daily range): BP systolic 98–124; BP diastolic 52–65; PULSE 71–93; RESP 15–20; TEMP 36.3–37.2; O2SAT 96–98
[2021-03-01 06:14] LABS: MANUAL DIFF FLAG NO
[2021-03-01 06:39] LABS: Basophils Percent Auto 0.1 % (0-2); Eosinophils Absolute Auto 0.1 X10*3/uL (0.0-0.4); Eosinophils Percent Auto 1.1 % (0-4); Hematocrit 24.8 % (37-47); Hemoglobin 8.1 g/dl (12.0-16.0); Imm Gran Abs Auto 0.02 X10*3/uL (0.00-0.03); Imm Gran Pct Auto 0.3 % (0.0-0.4); Lymphocytes Absolute Auto 3.3 X10*3/uL (1.2-4.9); Lymphocytes Percent Auto 44.4 % (20-40); Mean Corpuscular HGB Conc 32.7 g/dl (31.0-35.0); Mean Corpuscular Hemoglobin 30.8 pg (27.0-33.0); Mean Corpuscular Volume 94.3 fL (80-98); Mean Platelet Volume 12.5 fL (9.4-12.3); Monocytes Absolute Auto 0.6 X10*3/uL (0.1-1.2); Monocytes Percent Auto 8.6 % (2-11); Neutrophils Absolute Auto 3.4 X10*3/uL (2.0-8.3); Neutrophils Percent Auto 45.5 % (45-73); Platelet Count 138 X10*3/uL (160-400); Red Blood Count 2.63 X10*6/uL (4.20-5.50); Red Cell Distribution Width 13.6 % (11.0-16.0); White Blood Count 7.5 X10*3/uL (4.8-10.8)
[2021-03-01] MEDS: Dolutegravir Sodium 50 MG TABLET PO (08:30)
[2021-03-01] MEDS: Omeprazole 20 MG CAPSULE.DR PO (08:30)
[2021-03-01] MEDS: Gabapentin 300 MG CAPSULE PO ×2 (08:30→20:26)
[2021-03-01] MEDS: Emtricitabine/Tenofov Alafenam TABLET 1 TAB PO (08:30)
--- NOTE | 2021-03-01 09:45 | HO.POSTANES ---
Post Anesthesia Evaluation Post Anesthesia Evaluation Vital Signs: Vital Signs Temp Pulse Resp BP Pulse Ox 03/01/21 08:00 98.4 F 71 16 98/52 L 97 03/01/21 03:46 98.2 F 76 16 111/54 L 96 02/28/21 23:27 98.1 F 88 16 111/65 98 Anesthesia: General Mental Status: Awake Nausea/Vomiting: None Hydration: Adequate Anesthesia-Related Issues: No Anes. Related Issues
[2021-03-01] MEDS: Lactated Ringers 1,000 ML 100 ML IVCONT ×2 (10:04→20:26)
--- NOTE | 2021-03-01 10:15 | P.PNGS_ITS ---
Subjective Subjective Date of Service: 03/01/21 Interval history: Overall the patient feels improved but still is having some soreness in the chest wall and axilla. She still does not have much of an appetite and feels dizzy when ambulating. Physical Exam Vital Signs: Vital Signs: Last Vital Signs Temp 98.4 F 03/01/21 08:00 Pulse 71 03/01/21 08:00 Resp 16 03/01/21 08:00 BP 98/52 L 03/01/21 08:00 Pulse Ox 97 03/01/21 08:00 Body Mass Index 29.0 Const: General: cooperative, comfortable, no acute distress, well developed, alert and awake Eyes: Sclerae: sclerae normal EOM: EOMs intact bilaterally Chest: Other: Dressings clean and intact. There is mild ecchymosis noted around the dressing but no fluctuance or hematoma. Ehsan-Faiza are intact with output more serosanguineous this morning. Resp: Effort & Inspection: normal respiratory effort Skin: Other: Warm, dry, with no rashes Extrem: General: Yes no clubbing, cyanosis or edema Progress Note: A&P Assessment and plan (1) Invasive ductal carcinoma of left breast: Status: Acute Assessment and Plan: Status post a left modified radical mastectomy postoperative day 2, patient is improved with decreased chest discomfort. Ehsan-Sharma drain continues with serosanguineous discharge and will need to be left in place on discharge. Hemoglobin and hematocrit have drifted down. I will repeat the level in the morning. Possible discharge to home tomorrow with Ehsan-Sharma drains in place. She will need visiting nurses for drain care. Fall Risk Details Current Medications: Current Medications Generic Name Dose Route Start Last Admin Trade Name Freq PRN Reason Stop Dose Admin Al Hydroxide/Mg Hydroxide 30 ml 02/27/21 15:17 Magnesium Hydrox/Alum Hydrox 30 Ml Oral.Susp PO Q4H PRN Heartburn/Nausea Albuterol Sulfate 2.5 mg 02/28/21 11:03 Albuterol Sulfate (0.083%) 2.5 Mg/3 Ml Vial.Neb INHALE Q6H PRN Wheezing Albuterol Sulfate 2 puff 02/28/21 11:03 Albuterol Sulfate 90 Mcg 8 Gm Inhaler INHALE Q4H PRN Wheezing Clonidine HCl 0.2 mg 02/28/21 21:00 02/28/21 21:00 Clonidine Hcl 0.1 Mg Tablet PO 0.2 mg BEDTIME [facility]WA Administration Protocol Dolutegravir Sodium 50 mg 03/01/21 09:00 03/01/21 08:30 Dolutegravir Sodium 50 Mg Tablet PO 50 mg DAILY [facility] Administration Emtricitabine/Tenofovir Alafenamide 1 tab 03/01/21 09:00 03/01/21 08:30 Emtricitabine/Tenofov Alafenam Tablet PO 1 tab DAILY [facility] Administration Escitalopram Oxalate 15 mg 02/28/21 21:00 02/28/21 21:01 Escitalopram Oxalate 5 Mg Tablet PO 15 mg BEDTIME [facility] Administration Gabapentin 300 mg 02/28/21 09:00 03/01/21 08:30 Gabapentin 300 Mg Capsule PO 300 mg BID [facility] Administration Lactated Ringer's 1,000 mls @ 100 mls/hr 02/27/21 08:30 03/01/21 10:04 Lr IVCONT 100 mls/hr .Q10H [facility] Administration Loratadine 10 mg 02/28/21 21:00 02/28/21 21:01 Loratadine 10 Mg Tablet PO 10 mg BEDTIME [facility] Administration Lorazepam 0.5 mg 02/28/21 11:03 02/28/21 21:03 Lorazepam 0.5 Mg Tablet PO 0.5 mg BEDTIME PRN Administration anxiety Magnesium Hydroxide 30 ml 02/27/21 15:17 Milk Of Magnesia 30 Ml Oral.Susp PO DAILY PRN Constipation Montelukast Sodium 10 mg 02/28/21 21:00 02/28/21 21:01 Montelukast Sodium 10 Mg Tablet PO 10 mg BEDTIME [facility] Administration Morphine Sulfate 4 mg 02/27/21 15:17 02/28/21 21:10 Morphine Sulfate 4 Mg/Ml Cartridge IVPUSH 4 mg Q3H PRN Administration Pain, Severe (Pain Scale 7-10) Omeprazole 20 mg 03/01/21 09:00 03/01/21 08:30 Omeprazole 20 Mg Capsule.Dr PO 20 mg DAILY [facility] Administration Ondansetron HCl 4 mg 02/27/21 15:17 02/27/21 19:34 Ondansetron Hcl 4 Mg/2 Ml Vial IVPUSH 4 mg Q8H PRN Administration Nausea and Vomiting Oxycodone HCl 5 mg 02/27/21 15:17 02/28/21 19:11 Oxycodone Hcl Immed Release 5 Mg Tablet PO 5 mg Q6H PRN Administration Pain, Moderate (Pain Scale 4-6 Pharmacy Consult 1 each 02/27/21 15:17 Consult Rx Perform Med Rec MISCELLANE ONCE PRN Consult order Sodium Chloride 3 ml 02/27/21 16:00 03/01/21 07:19 0.9 % Sodium Chloride Flush 3 Ml Syringe IVFLUSH Not Given QSHIFT [facility] Zolpidem Tartrate 10 mg 02/28/21 11:03 02/28/21 21:00 Zolpidem Tartrate 5 Mg Tablet PO 10 mg BEDTIME PRN Administration Insomnia Time Spent With Patient Time: Total time spent is greater than 50% in coordination of care (as documented) at patient's floor/unit and/or counseling patient: Time with patient: 15 - 24 minutes
--- NOTE | 2021-03-01 12:13 | MHC.CM.PN ---
PATIENT LIVES WITH HER SIGNIFICANT OTHER SHE IS INDEPENDENT WITH ALL ADLS. NEW REFERRAL TO [facility]. PLAN IS DC TO HOME TOMORROW WITH RN [facility]. S.O. WILL PROVIDE TRANSPORTATION.
[2021-03-01] MEDS: Morphine Sulfate 4 MG/ML CARTRIDGE IVPUSH (14:04)
[2021-03-01] MEDS: Montelukast Sodium 10 MG TABLET PO (20:26)
[2021-03-01] MEDS: Escitalopram Oxalate 5 MG TABLET 15 MG PO (20:26)
[2021-03-01] MEDS: Loratadine 10 MG TABLET PO (20:26)
[2021-03-01] MEDS: cloNIDine HCL 0.1 MG TABLET 0.2 MG PO (20:27)
[2021-03-01] MEDS: Zolpidem Tartrate 5 MG TABLET 10 MG PO (22:12)
[2021-03-01] MEDS: oxyCODONE HCl Immed Release 5 MG TABLET PO (22:13)
[2021-03-02] MEDS: 0.9 % Sodium Chloride Flush 3 ML SYRINGE IVFLUSH (00:14)
[2021-03-02 03:47] VITALS: BP 104/53; PULSE 74; RESP 20; TEMP 36.2; O2SAT 82
[2021-03-02] MEDS: Lactated Ringers 1,000 ML 100 ML IVCONT (06:04)
[2021-03-02 07:01] LABS: MANUAL DIFF FLAG NO
[2021-03-02 07:13] LABS: Basophils Percent Auto 0.3 % (0-2); Eosinophils Absolute Auto 0.1 X10*3/uL (0.0-0.4); Eosinophils Percent Auto 1.9 % (0-4); Hematocrit 24.9 % (37-47); Hemoglobin 8.1 g/dl (12.0-16.0); Imm Gran Abs Auto 0.04 X10*3/uL (0.00-0.03); Imm Gran Pct Auto 0.5 % (0.0-0.4); Lymphocytes Absolute Auto 3.3 X10*3/uL (1.2-4.9); Lymphocytes Percent Auto 43.9 % (20-40); Mean Corpuscular HGB Conc 32.5 g/dl (31.0-35.0); Mean Corpuscular Hemoglobin 30.8 pg (27.0-33.0); Mean Corpuscular Volume 94.7 fL (80-98); Mean Platelet Volume 12.6 fL (9.4-12.3); Monocytes Absolute Auto 0.6 X10*3/uL (0.1-1.2); Monocytes Percent Auto 7.5 % (2-11); Neutrophils Absolute Auto 3.4 X10*3/uL (2.0-8.3); Neutrophils Percent Auto 45.9 % (45-73); Platelet Count 162 X10*3/uL (160-400); Red Blood Count 2.63 X10*6/uL (4.20-5.50); Red Cell Distribution Width 13.5 % (11.0-16.0); White Blood Count 7.4 X10*3/uL (4.8-10.8)
[2021-03-02 07:41] VITALS: BP 117/56; PULSE 79; RESP 17; TEMP 36.6; O2SAT 98
--- NOTE | 2021-03-02 07:52 | P.F2F_ITS ---
Service Date Service Date: 03/02/21 Encounter Date of encounter: 03/02/21 Encounter: Patient seen and examined. Dressings changed to left chest. Patient is status post left modified radical mastectomy. Her incision is clean and intact with intact elizabeth. Two Ehsan-Sharma drains are in place, the medial drain is located in the lower breast flap in the lateral drain is in axilla. Reasons for Services Reason for group home: CV/CP assess and/or care, wound care and postoperative assessment and/or care Reason for physical therapy: home safety and mobility and therapeutic exercises Homebound: Leaving the home is medically contraindicated at this time without the asist of a device and/or another person due th the listed conditions above and below. Reason homebound: unsteady gait / fall risk, poor balance / fall risk and weakness related to hospital stay Homebound supporting statement: Patient recently underwent a left modified radical mastectomy and is weak in from a prolonged hospital stay and anemia following the procedure. Certification: Based on the above findings, I certify that this patient is confined to the home and needs intermittent group home care, physical the rapy and/or speech therapy, or continues to need occupational therapy. The patient is under my care, and I have initiated the establishment of the plan of care. The patient will be followed by a physician who will periodically review the plan of care.
--- NOTE | 2021-03-02 08:02 | P.DS_ITS ---
DS: Providers Provider Date of Service: 03/02/21 Date of admission: 02/27/21 08:17 Primary care physician: [facility] Discharging clinician: Marlon Li DS: Diagnosis Discharge Diagnosis (1) Invasive ductal carcinoma of left breast: Status: Acute DS: Medications Discharge Medications Home Medications: Home Medications Medication Instructions Recorded Confirmed Descovy 1 tab PO DAILY 02/07/21 02/27/21 Tivicay 1 tab PO DAILY 02/07/21 02/27/21 albuterol sulfate 1 amp INHALATION Q6H PRN 02/07/21 02/27/21 albuterol sulfate [ProAir HFA] 2 puff INHALATION Q4H PRN 02/07/21 02/27/21 cetirizine 1 tab PO BEDTIME 02/07/21 02/27/21 citalopram 1.5 tab PO BEDTIME 02/07/21 02/27/21 clonidine HCl 0.2 mg PO BEDTIME 02/07/21 02/27/21 lorazepam 1 tab PO BEDTIME PRN 02/07/21 02/27/21 montelukast 1 tab PO BEDTIME 02/07/21 02/27/21 pantoprazole 1 tab PO QAM 02/07/21 02/27/21 zolpidem 1 tab PO BEDTIME PRN 02/07/21 02/27/21 Previous Rx's Medication Instructions Recorded gabapentin 300 mg PO BID 30 Days #60 cap 03/02/21 oxycodone 5 mg PO Q6H PRN 7 Days #20 tab 03/02/21 DS: Summary Hospital Course Hospital Course: 50-year-old female patient initially evaluated on 01/24/2021 for a palpable mass in the upper outer quadrant.This was noted to 3 months prior and had increased in size over this time. On examination the patient was found to have a large tumor in the upper outer quadrant of the left breast measuring approximately 5 cm in diameter. No enlarged lymph nodes were identified. She underwent an ultrasound-guided core biopsy on 01/29/2021 which revealed an invasive ductal carcinoma, grade 3, Lymphovascular invasion not identified, ER/MT/Her2-south negative. She underwent a left breast lumpectomy with needle localization, sentinel node biopsy left axilla on 02/14/2021, and the pathology revealed: A. Breast, left, lumpectomy: - Invasive ductal carcinoma, MSBR grade 3, 4.0 cm in size; positive anterior margin. - AJCC Stage (8th ed): pT2 N1ami(sn)(i+), ER, MT and HER2 negative (see [id number]) B. Lymph node, left axilla sentinel #1, excision: Metastatic carcinoma seen in one lymph node examined (micrometastasis). C. Breast, left inferomedial margin, revision: Benign breast tissue with fibrocystic and columnar cell changes and microcalcifications; no residual carcinoma seen. Patient tolerated the procedure well but does note some soreness in the left breast at the upper outer quadrant. Patient returned on 02/22/2021 for follow-up examination and discussion of pathology on results after a left breast lumpectomy with needle localization, sentinel node biopsy. Pathology revealed tumor at the anterior margin. This was reviewed with Dr. Morrell and involved a wide area of of the anterior border. The original procedure was performed by shaving the mass off the skin. Options include wide excision of the skin at the anterior margin verses modified radical mastectomy. A wide excision has 2 problems including 1. Distortion of the breast tissue with changing of the shape of the breast and 2. Possibility of residual tumor after the 2nd excision required a 3rd procedure. The modified radical mastectomy is obviously a larger procedure but would improve the likelihood of complete removal of tumor and offer the possibility of reconstructive surgery in the future should the patient decide to proceed with this. She also has the option of immediate reconstruction following the mastectomy. After discussion of the options, risks, and benefits, she wishes to proceed with a modified radical mastectomy and will hold off on immediate reconstruction at this time. I reviewed the procedure, risks, and alternatives in detail and she consents to a modified radical mastectomy left breast. She will be scheduled as a short-stay admit. She was taken, 02/27/2021, for a modified radical mastectomy. Operative findings revealed no areas of suspicious lesions although several enlarged lymph nodes were encountered during the axillary dissection portion. She tolerated the procedure well and was transferred to PACU in stable condition. In PACU the patient is Ehsan-Sharma drains began to drain sanguinous output. Patient was placed in a breast binder observed. She did report incisional pain as well as arm pain. She was subsequently started on gabapentin to help with the nerve pain. Over the next several days the Ehsan-Sharma drain mainly sanguinous and serosanguineous discharge. On postoperative day 3. However the output seem to decrease an area hemoglobin level stabilized at 8.1. Her dressings were changed in the wounds found to be clean, dry, and intact with no obvious hematoma below the flaps. Patient reports feeling much improved with minimal chest pain and arm pain. She does report numbness in the skin of the left arm. Patient reports feeling comfortable for discharge. Patient is to be discharged to home with VNA. She will continue have the Ehsan-Sharma drains. Her was instructed on draining the fluid and measurement of the volume. Visiting nurses will assist with wound checks as beverly chavira. She should return to the office next week for wound check. She should call sooner for any concerns. Time Spent with Patient Time attestation: Total time spent providing and/or coordinating discharge services: Discharge coordination time: Less than 30 minutes Physical Exam Vital Signs: Vital Signs: Last Vital Signs Temp 97.9 F 03/02/21 07:41 Pulse 79 03/02/21 07:41 Resp 17 03/02/21 07:41 BP 117/56 L 03/02/21 07:41 Pulse Ox 98 03/02/21 07:41 Body Mass Index 29.0 Const: General: cooperative, healthy appearing, comfortable, no acute distress, well developed, alert, awake and Physically active Chest: Other: Dressings changed, wounds clean, dry, and intact. Ehsan-Sharma her main intact. No hematoma is palpable in the axilla or chest wall. Breast binder was reapplied. Skin: General skin exam: no rashes or lesions noted Extrem: General: Yes normal to inspection and No edema DS: Data Data Completed and Pending Pending studies at discharge: Pending at discharge 02/27/21 10:32 Surgical [PTH] Routine Labs on day of discharge: Laboratory Results - last 24 hr 03/02/21 06:17 WBC 7.4 RBC 2.63 L Hgb 8.1 L Hct 24.9 L MCV 94.7 MCH 30.8 MCHC 32.5 RDW 13.5 Plt Count 162 MPV 12.6 H Immature Gran % (Auto) 0.5 H Neut % (Auto) 45.9 Lymph % (Auto) 43.9 H [place] % (Auto) 7.5 Eos % (Auto) 1.9 Baso % (Auto) 0.3 Lymph # (Auto) 3.3 [place] # (Auto) 0.6 Eos # (Auto) 0.1 Baso # (Auto) 0.0 Abs Immat Gran (auto) 0.04 H Absolute Neuts (auto) 3.4 Absolute Nucleated RBC 0.000 Nucleated RBC % (auto) 0.0 Discharge Plan Discharge Patient Disposition: Home Health Service Discharge Diagnosis: Invasive ductal carcinoma left breast Referrals: [facility] [Outside] - 1 Week [facility]iqu[facility] [Primary Care Provider] - 1 Week Marlon Li MD [Physician] - 1 Week Discharge Medications: New gabapentin 300 mg Capsule 300 mg PO BID 30 Days Qty: 60 RF: 2 oxycodone 5 mg Tablet 5 mg PO Q6H PRN (Reason: Pain, Moderate (Pain Scale 4-6) 7 Days Qty: 20 RF: 0 Continued clonidine HCl 0.1 mg tablet 0.2 mg PO BEDTIME RF: 0 albuterol sulfate 2.5 mg /3 mL (0.083 %) solution for nebulization 1 amp inhalation Q6H PRN (Reason: Wheezing) RF: 0 cetirizine 10 mg tablet 1 tab PO BEDTIME RF: 0 citalopram 20 mg tablet 1.5 tab PO BEDTIME RF: 0 lorazepam 0.5 mg tablet 1 tab PO BEDTIME PRN (Reason: anxiety) RF: 0 pantoprazole 40 mg tablet,delayed release (DR/EC) 1 tab PO QAM RF: 0 montelukast 10 mg tablet 1 tab PO BEDTIME RF: 0 zolpidem 10 mg tablet 1 tab PO BEDTIME PRN (Reason: Insomnia) RF: 0 albuterol sulfate [ProAir HFA] 90 mcg/actuation HFA aerosol inhaler 2 puff inhalation Q4H PRN (Reason: Wheezing) RF: 0 Tivicay 50 mg tablet 1 tab PO DAILY RF: 0 Descovy 200-25 mg tablet 1 tab PO DAILY RF: 0 Discharge Orders: Discharge Order (Routine); Ordered 03/02/21 Ordered By: Marlon Li Diet: advance to usual diet Activity on Discharge: No heavy lifting Stand Alone Forms: Patient Portal Discharge page Activity Restrictions/Additional Instructions: No strenuous exercise with the left arm Please measure output from both drains and record amounts. Keep chest binder on as much as possible. May be taken off for shower/dressing changes. Follow-up in office in 1 week. Call for increased swelling, pain, or concerns about the incision. Care Plan Goals: Return to normal activity and full function of the left arm Health Concerns: Left invasive ductal carcinoma, status post left modified radical mastectomy Plan of Treatment: Modified radical mastectomy left side, LUAN drain x2 Assessment: Invasive ductal carcinoma left breast Patient Instructions: Mastectomy (DC)
--- NOTE | 2021-03-02 08:14 | MHC.CM.PN ---
PT WILL DISCHARGE HOME TODAY WITH [facility]. PTS PCP IS DAJA PETER.
--- NOTE | 2021-03-02 08:39 | PM.PNGS ---
Subjective Subjective Date of Service: 03/02/21 Interval history: Patient reports feeling much improved this morning with minimal chest pain. She reports some numbness in the arm but overall feels much improved. She feels ready for discharge to home Physical Exam Vital Signs: Vital Signs: Last Vital Signs Temp 97.9 F 03/02/21 07:41 Pulse 79 03/02/21 07:41 Resp 17 03/02/21 07:41 BP 117/56 L 03/02/21 07:41 Pulse Ox 98 03/02/21 07:41 Body Mass Index 29.0 Const: General: cooperative, comfortable and no acute distress Nutritional Appearance: well nourished Orientation/consciousness: patient oriented x3 Chest: Other: Dressings changed. Incision is clean, dry, and intact. LUAN is are intact as well. New dressing applied. Breast binder reapplied. Resp: Effort & Inspection: normal respiratory effort Skin: General skin exam: no rashes or lesions noted Neuro: General: patient oriented x3 Extrem: General: Yes no clubbing, cyanosis or edema Progress Note: A&P Assessment and plan (1) Invasive ductal carcinoma of left breast: Status: Acute Assessment and Plan: Status post left modified radical mastectomy for invasive ductal carcinoma. Patient is now feeling improved with decreased chest arm pain. Drainage still serosanguineous with both LUAN drains. Hemoglobin hematocrit is stable this morning. Patient feels ready for discharge to home. She will be discharged with [facility] for wound care. I have asked her to return to the office early next week for wound check and possible drain removal. Fall Risk Details Current Medications: Current Medications Generic Name Dose Route Start Last Admin Trade Name Freq PRN Reason Stop Dose Admin Al Hydroxide/Mg Hydroxide 30 ml 02/27/21 15:17 Magnesium Hydrox/Alum Hydrox 30 Ml Oral.Susp PO Q4H PRN Heartburn/Nausea Albuterol Sulfate 2.5 mg 02/28/21 11:03 Albuterol Sulfate (0.083%) 2.5 Mg/3 Ml Vial.Neb INHALE Q6H PRN Wheezing Albuterol Sulfate 2 puff 02/28/21 11:03 Albuterol Sulfate 90 Mcg 8 Gm Inhaler INHALE Q4H PRN Wheezing Clonidine HCl 0.2 mg 02/28/21 21:00 03/01/21 20:27 Clonidine Hcl 0.1 Mg Tablet PO 0.2 mg BEDTIME HAWA Administration Protocol Dolutegravir Sodium 50 mg 03/01/21 09:00 03/01/21 08:30 Dolutegravir Sodium 50 Mg Tablet PO 50 mg DAILY HAWA Administration Emtricitabine/Tenofovir Alafenamide 1 tab 03/01/21 09:00 03/01/21 08:30 Emtricitabine/Tenofov Alafenam Tablet PO 1 tab DAILY HAWA Administration Escitalopram Oxalate 15 mg 02/28/21 21:00 03/01/21 20:26 Escitalopram Oxalate 5 Mg Tablet PO 15 mg BEDTIME HAWA Administration Gabapentin 300 mg 02/28/21 09:00 03/01/21 20:26 Gabapentin 300 Mg Capsule PO 300 mg BID HAWA Administration Lactated Ringer's 1,000 mls @ 100 mls/hr 02/27/21 08:30 03/02/21 06:04 Lr IVCONT 100 mls/hr .Q10H HAWA Administration Loratadine 10 mg 02/28/21 21:00 03/01/21 20:26 Loratadine 10 Mg Tablet PO 10 mg BEDTIME HAWA Administration Lorazepam 0.5 mg 02/28/21 11:03 02/28/21 21:03 Lorazepam 0.5 Mg Tablet PO 0.5 mg BEDTIME PRN Administration anxiety Magnesium Hydroxide 30 ml 02/27/21 15:17 Milk Of Magnesia 30 Ml Oral.Susp PO DAILY PRN Constipation Montelukast Sodium 10 mg 02/28/21 21:00 03/01/21 20:26 Montelukast Sodium 10 Mg Tablet PO 10 mg BEDTIME HAWA Administration Morphine Sulfate 4 mg 02/27/21 15:17 03/01/21 14:04 Morphine Sulfate 4 Mg/Ml Cartridge IVPUSH 4 mg Q3H PRN Administration Pain, Severe (Pain Scale 7-10) Omeprazole 20 mg 03/01/21 09:00 03/01/21 08:30 Omeprazole 20 Mg Capsule.Dr PO 20 mg DAILY HAWA Administration Ondansetron HCl 4 mg 02/27/21 15:17 02/27/21 19:34 Ondansetron Hcl 4 Mg/2 Ml Vial IVPUSH 4 mg Q8H PRN Administration Nausea and Vomiting Oxycodone HCl 5 mg 02/27/21 15:17 03/01/21 22:13 Oxycodone Hcl Immed Release 5 Mg Tablet PO 5 mg Q6H PRN Administration Pain, Moderate (Pain Scale 4-6 Pharmacy Consult 1 each 02/27/21 15:17 Consult Rx Perform Med Rec MISCELLANE ONCE PRN Consult order Sodium Chloride 3 ml 02/27/21 16:00 03/02/21 00:14 0.9 % Sodium Chloride Flush 3 Ml Syringe IVFLUSH 3 ml QSHIFT HAWA Administration Zolpidem Tartrate 10 mg 02/28/21 11:03 03/01/21 22:12 Zolpidem Tartrate 5 Mg Tablet PO 10 mg BEDTIME PRN Administration Insomnia Time Spent With Patient Time: Total time spent is greater than 50% in coordination of care (as documented) at patient's floor/unit and/or counseling patient: Time with patient: 15 - 24 minutes
[2021-03-02] MEDS: Omeprazole 20 MG CAPSULE.DR PO (09:11)
[2021-03-02] MEDS: Emtricitabine/Tenofov Alafenam TABLET 1 TAB PO (09:11)
[2021-03-02] MEDS: Gabapentin 300 MG CAPSULE PO (09:11)
[2021-03-02] MEDS: Dolutegravir Sodium 50 MG TABLET PO (09:11)
== END 2021-03-02 10:32 | disposition home health service (06) | DRG 362 ==
LOC: HO.SSSA 08:52 → HO.S3 14:53
PROVIDERS: Admitting Provider Surgery; Visit Provider Surgery
PROC: 0HTU0ZZ Resection of Left Breast, Open Approach (ICD-10-PCS; CPT 19307; principal; 2021-02-27 10:10)
DX: C50.912 Malignant neoplasm of unspecified site of left female breast (principal); F32.9 Major depressive disorder, single episode, unspecified; Z21 Asymptomatic human immunodeficiency virus [HIV] infection status; Z20.822 Contact with and (suspected) exposure to COVID-19; Z88.5 Allergy status to narcotic agent; Z79.899 Other long term (current) drug therapy
CPT/HCPCS: 36415; 85025; 85610; 87635; 88161; 88305; 88307; 88309; 88331; 88333; 88342; 99024; J0131; J0690; J1100; J1170; J2250; J2270; J2405; J3010

== ENCOUNTER → 2021-03-08 14:15 | Outpatient (BNVA) | payer MEDICAID, SELFPAY | PROVIDERS: PCP Advanced Practice Midwife; Visit Provider Surgery ==

== ENCOUNTER → 2021-03-19 10:53 | Outpatient (BNVA) | payer MEDICAID, SELFPAY | PROVIDERS: PCP General Practice; Visit Provider Surgery | DX: Z85.3 Personal history of malignant neoplasm of breast (principal) | CPT/HCPCS: 99212 ==

== ENCOUNTER → 2021-03-29 13:26 | Outpatient (BNV) | payer MEDICAID, SELFPAY | PROVIDERS: Visit Provider Internal Medicine | DX: C50.912 Malignant neoplasm of unspecified site of left female breast (principal) | CPT/HCPCS: 99204; 99213; 99214 ==

== ENCOUNTER 2021-04-08 | Outpatient (REF) | payer MEDICAID, SELFPAY | END 2021-04-08 00:01 | disposition home or self-care (01) | LOC: CF | PROVIDERS: Visit Provider Surgery | DX: C50.912 Malignant neoplasm of unspecified site of left female breast (principal) | CPT/HCPCS: 99211 ==

== ENCOUNTER 2021-04-08 08:33 | Day surgery (SDC) | payer MEDICAID, SELFPAY ==
--- NOTE | ~2021-04-08 | IR_ITS ---
PROCEDURE: IR INSERTION OF TUNNEL CATHETER CLINICAL INFORMATION: Left breast cancer COMPARISON: None TECHNIQUE: Procedure and risks and benefits including bleeding, infection and pneumothorax were discussed with the patient and informed consent was obtained. All elements of maximal sterile barrier technique followed including use of cap, mask, sterile gown, sterile gloves, a sterile full body drape and hand hygiene. Also followed skin preparation with 2% chlorhexidine for cutaneous antisepsis, and sterile ultrasound preparation with sterile gel and probe cover when applicable. The right neck and chest were prepped and draped in usual sterile fashion. The skin and soft tissues of the right lower neck were anesthetized with 1% lidocaine with epinephrine. A small incision was made. Using ultrasound guidance and a 5-Montenegrin micropuncture system, right internal jugular vein access was obtained. Over an 0.018 wire, a 5-Montenegrin dilator was positioned in the SVC. The skin and soft tissues of the right upper chest were anesthetized with 1% lidocaine with epinephrine. A small incision was made. Using blunt dissection, subcutaneous pocket was created. A subcutaneous tunnel from the chest to the neck incision was anesthetized with 1% lidocaine with epinephrine. Using a tunneler, a 6.6-Montenegrin single-lumen catheter was tunneled from the chest to the neck incision. The catheter was attached to the port. The port and catheter were flushed. The port was positioned in the pocket and secured using two 3-0 nonabsorbable sutures. An 0.035 guidewire was advanced through the 5-Montenegrin dilator into the IVC. Using bent wire technique, catheter length was estimated and the catheter was cut. Catheter length is 20 cm. The catheter was fed through the peel-away sheath. The neck incision was closed using a 4-0 absorbable subcuticular suture. Chest incision was closed using three 3-0 interrupted absorbable sutures followed by a running subcuticular 4-0 absorbable suture. The port was accessed. The port had good blood return, flushed easily and was instilled with heparin 500 unit per mL solution. Real-time ultrasound guidance was used in the infrarenal entry. A formal ultrasound was recorded. FLUOROSCOPY TIME: 0.2 minutes. DAP: 24 cGy per centimeter squared. IMAGES: 1 saved ultrasound and 1 saved fluoroscopic image SEDATION: Patient received Versed 3.5 mg and Fentanyl 175 mcg intravenously during the procedure as well as Kefzol 2 g IV. Total sedation time was 43 minutes. FINDINGS: There is a right internal jugular port with tip projecting over the cavoatrial junction. IR/IR us guide venous access IMPRESSION: Right internal jugular 6.6 Montenegrin single-lumen dignity Port-A-Cath placement.
--- NOTE | ~2021-04-08 | IR_ITS ---
PROCEDURE: IR INSERTION OF TUNNEL CATHETER CLINICAL INFORMATION: Left breast cancer COMPARISON: None TECHNIQUE: Procedure and risks and benefits including bleeding, infection and pneumothorax were discussed with the patient and informed consent was obtained. All elements of maximal sterile barrier technique followed including use of cap, mask, sterile gown, sterile gloves, a sterile full body drape and hand hygiene. Also followed skin preparation with 2% chlorhexidine for cutaneous antisepsis, and sterile ultrasound preparation with sterile gel and probe cover when applicable. The right neck and chest were prepped and draped in usual sterile fashion. The skin and soft tissues of the right lower neck were anesthetized with 1% lidocaine with epinephrine. A small incision was made. Using ultrasound guidance and a 5-Armenian micropuncture system, right internal jugular vein access was obtained. Over an 0.018 wire, a 5-Armenian dilator was positioned in the SVC. The skin and soft tissues of the right upper chest were anesthetized with 1% lidocaine with epinephrine. A small incision was made. Using blunt dissection, subcutaneous pocket was created. A subcutaneous tunnel from the chest to the neck incision was anesthetized with 1% lidocaine with epinephrine. Using a tunneler, a 6.6-Armenian single-lumen catheter was tunneled from the chest to the neck incision. The catheter was attached to the port. The port and catheter were flushed. The port was positioned in the pocket and secured using two 3-0 nonabsorbable sutures. An 0.035 guidewire was advanced through the 5-Armenian dilator into the IVC. Using bent wire technique, catheter length was estimated and the catheter was cut. Catheter length is 20 cm. The catheter was fed through the peel-away sheath. The neck incision was closed using a 4-0 absorbable subcuticular suture. Chest incision was closed using three 3-0 interrupted absorbable sutures followed by a running subcuticular 4-0 absorbable suture. The port was accessed. The port had good blood return, flushed easily and was instilled with heparin 500 unit per mL solution. Real-time ultrasound guidance was used in the infrarenal entry. A formal ultrasound was recorded. FLUOROSCOPY TIME: 0.2 minutes. DAP: 24 cGy per centimeter squared. IMAGES: 1 saved ultrasound and 1 saved fluoroscopic image SEDATION: Patient received Versed 3.5 mg and Fentanyl 175 mcg intravenously during the procedure as well as Kefzol 2 g IV. Total sedation time was 43 minutes. FINDINGS: There is a right internal jugular port with tip projecting over the cavoatrial junction. IR/IR cvc insert tunnel w prt/cleaning supervisor IMPRESSION: Right internal jugular 6.6 Armenian single-lumen dignity Port-A-Cath placement.
[2021-04-08 09:22] VITALS: BMI 30.5
[2021-04-08 09:59] LABS: INTERNATIONAL NORM RATIO 1.1 (0.9-1.1); Prothrombin Time 12.5 SEC (10.8-13.0)
[2021-04-08 10:01] LABS: Partial Thromboplastin Time 32.4 SEC (24.1-38.0)
--- NOTE | 2021-04-08 12:13 | HO.RADPN ---
RADIOLOGY Narrative Narrative: Right IG 6.6 Fr single lumen Dignity port placed. Tip at cavoatrial junction.
[2021-04-08] MEDS: Lidocaine HCl 1 % MPF 5 ML VIAL SUBCUT (12:18)
[2021-04-08] MEDS: Heparin Sodium,Porcine Flush 500 UNIT/5 ML SYRINGE IVFLUSH (12:21)
[2021-04-08 12:30] VITALS: BP 114/60; PULSE 58; TEMP 37.2; O2SAT 97
[2021-04-08 12:45] VITALS: BP 117/62; PULSE 58; RESP 18; O2SAT 97
[2021-04-08] MEDS: Acetaminophen 325 MG TABLET 650 MG PO (12:45)
[2021-04-08 13:00] VITALS: BP 117/58; PULSE 61; RESP 20; O2SAT 97
[2021-04-08 13:14] VITALS: BP 99/47; PULSE 54; RESP 18; O2SAT 98
[2021-04-08 13:30] VITALS: BP 101/47; PULSE 58; RESP 18; O2SAT 98
[2021-04-08 14:04] VITALS: BP 116/57; PULSE 61; RESP 18; TEMP 37.1; O2SAT 100
== END 2021-04-08 14:19 | disposition home or self-care (01) ==
PROVIDERS: Visit Provider Radiology Diagnostic Radiology
DX: C50.412 Malignant neoplasm of upper-outer quadrant of left female breast (principal); C77.3 Secondary and unspecified malignant neoplasm of axilla and upper limb lymph nodes; Z17.1 Estrogen receptor negative status [ER-]; Z90.12 Acquired absence of left breast and nipple; B20 Human immunodeficiency virus [HIV] disease; J45.909 Unspecified asthma, uncomplicated; F32.9 Major depressive disorder, single episode, unspecified; K21.9 Gastro-esophageal reflux disease without esophagitis; Z79.899 Other long term (current) drug therapy; Z88.8 Allergy status to other drugs, medicaments and biological substances; Z87.891 Personal history of nicotine dependence
CPT/HCPCS: 36415; 36561; 76937; 85610; 85730; 99152; 99153; C1769; C1788; J0690; J1642; J2250; J3010

== ENCOUNTER 2021-04-09 09:49 | Outpatient (REF) | payer MEDICAID, SELFPAY ==
--- NOTE | ~2021-04-09 | CT_ITS ---
EXAMINATION: CT CHEST, ABDOMEN AND PELVIS WITH IV CONTRAST CLINICAL INFORMATION: Staging breast cancer. COMPARISON: Previous CT of the abdomen and pelvis July 2019 and chest x-ray November 2017. TECHNIQUE: Axial images through the chest, abdomen and pelvis following oral and 85 mL Omnipaque 350 intravenous contrast. Sagittal and coronal reconstructions on the technologist workstation were performed. DLP: 523 mGy-cm This CT examination was performed using dose optimization techniques as appropriate, variously including the following: *Automated exposure control *Adjustment of mA and/or kV according to patient size (this includes techniques or standardized protocols for targeted exams where dose is matched to indication/reason for exam; i.e. extremities or head) *Use of iterative reconstruction technique FINDINGS: CHEST: There is a 2 mm right upper lobe nodule axial image 32 series 5. There is a 2 mm peripheral or subpleural right middle lobe nodule axial image 222 series 5 and small 2 and 3 mm peripheral or subpleural left lower lobe nodules axial image 244 series 5. These probably represent subpleural lymph nodes. The thyroid gland is normal. There are no enlarged hilar or mediastinal lymph nodes. The heart does not appear enlarged. There is no pericardial effusion. There is a right jugular port with tip projecting over the cavoatrial junction. There is no pleural effusion or pleural thickening. There are postsurgical changes following left mastectomy. There is a small thick-walled fluid collection over the lower sternum measuring 2 x 2.7 x 4.4 cm in AP transverse and longitudinal dimension. There is thickening of the left pectoral muscles. This may represent postsurgical change. There are no enlarged axillary lymph nodes. No right chest wall mass is seen. ABDOMEN AND PELVIS: The liver is slightly low in attenuation suggestive of fatty infiltration. The gallbladder has been removed. The spleen is unremarkable. The pancreas is unremarkable. The adrenal glands are unremarkable. There is a 1 cm low-attenuation lesion in the lower pole. These are otherwise unremarkable. The bladder is unremarkable. The uterus has been removed. There are bilateral ovarian cysts largest measuring approximately 2 cm. There is a cystic tubular structure on the right questionable for hydrosalpinx. Small and large bowel is unremarkable. The appendix is unremarkable. The stomach is unremarkable. No ascites or adenopathy is seen. There is a small ventral or supraumbilical hernia containing fat. Vascular structures are unremarkable. Review of bone windows demonstrates small nonspecific sclerotic lesion in the right iliac bone measuring 5 mm axial image 64 series 3 and small 5 mm lytic lesion in the left iliac bone axial image 57 series 3. These are unchanged from previous CT of the abdomen and pelvis July [address] and [address] CT/CT abdomen pelvis w con IMPRESSION: Chest: Small pulmonary nodules, largest measuring 3 mm. Abdomen and pelvis: Small left renal cyst. Bilateral ovarian cysts. Cystic tubular structure in the right pelvis questionable for hydrosalpinx. This could be better assessed with pelvic ultrasound.
[2021-04-09] MEDS: iohexoL 350 MG/ML 100 ML INFUS..BTL IV (10:46)
== END 2021-04-09 09:50 | disposition home or self-care (01) ==
LOC: HO.CT 09:49
PROVIDERS: PCP Nurse Practitioner Family; Visit Provider Internal Medicine
DX: C50.912 Malignant neoplasm of unspecified site of left female breast (principal)
CPT/HCPCS: 71260; 74177; Q9967

== ENCOUNTER → 2021-04-10 07:21 | Outpatient (REF) | payer MEDICAID, SELFPAY ==
--- NOTE | 2021-04-10 07:23 | CA_ITS ---
Transthoracic Echocardiogram Patient (Last, First, Middle): Mima Collier, Gender: Female Date of : 1970 Age: 50 Procedure Date: 04/10/2021 Procedure Type: Transthoracic Echocardiogram Location: OP Height: 162.56 cm Weight: 72.58 kg BSA: 1.78 m2 Heart Rate: bpm BP: 110 / 78 mmHg [employer] Consultant: YR/CP Referring MD: Yocasta Ornelas MD Symptoms: Pre chemo evaluation Study Quality: Fair/contrast ECG Rhythm: Sinus Conclusions: - The left ventricular systolic function is normal. The visually estimated ejection fraction is between 65-70%. - No obvious valvular pathology seen on this study. Findings Procedure Information Contrast agent, definity, is being given per protocol without apparent complications. Left Ventricle Normal left ventricular cavity size. There is normal left ventricular wall thickness. The left ventricular systolic function is normal. The visually estimated ejection fraction is between 65-70%. There is no evidence of regional wall motion abnormalities. Diastolic function is normal for age. Right Ventricle Normal right ventricular cavity size and systolic function. Atria The left atrium is normal in size. The right atrium is normal in size. Aortic Valve There is a normal trileaflet aortic valve. There is no aortic valve stenosis. There is no aortic valve regurgitation. Mitral Valve The mitral valve appears normal. There is no mitral valve regurgitation. There is no mitral valve stenosis. Pulmonic Valve The pulmonic valve was not well visualized. Tricuspid Valve Normal tricuspid valve structure. There is mild tricuspid valve regurgitation. The pulmonary artery systolic pressure is normal. Great Vessels The aortic annulus, sinuses of valsalva, and asc aorta are normal in size. Venous The inferior vena cava is normal in size and collapses greater than 50% with inspiration. Pericardium/Pleural There is no evidence of pericardial effusion. Prior Study Comparison No prior study available for comparison. Recommendations, Care & Conclusions No obvious valvular pathology seen on this study. Measurements 2D Linear Measurements IVSd: 0.97 0.6-0.9/0.6-1.0 cm LVIDd: 3.87 3.9-5.3/4.2-5.9 cm LVIDd Index: 2.17 2.4-3.2/2.2-3.1 cm/m2 LVIDs: 2.58 2.0-3.6 cm LVPWd: 0.89 0.7-1.1 cm Ao Root: 2.90 2.1-3.5 cm LA Diam: 3.50 2.7-3.8/3.0-4.0 cm LAIDs Index: 1.97 1.5-2.3 cm/m2 LV Mass: 135.89 67-162/88-224 g LV Mass Index: 76.34 43-95/49-115 g/m2 LVOT Diam: 2.00 3.0+(-)1.3 cm 2D Systolic Function EF 4C: 76.80 >55% EF 2C: 65.50 >55% EF BiP: 72.00 >55% Mitral Valve MV Pk E: 1.00 MV PK A: 0.92 MV Decel Time: 255.00 E/A: 1.10 E'Lateral: 10.60 E'Medial: 7.94 E/E' Med: 12.60 E/E' Lat: 9.40 PHT: 75.00 MVA PHT: 2.93 Decel Piute: 3.91 Aortic Valve AoV Pk Ariel: 1.38 AoV Mn Ariel: 0.90 AoV VTI: 0.32 AoV Pk Grad: 8.00 Aov Mn Grad: 4.00 EVELYN Cont.VTI: 2.78 LVOT LVOT Pk Ariel: 1.41 LVOT Mn Ariel: 0.80 LVOT VTI: 0.29 LVOT Pk Grad: 8.00 LVOT Mn Grad: 3.00 LVOT Diam: 2.00 LVOT Area: 3.14 Diastolic Function MV Pk E: 1.00 MV Pk A: 0.92 E/A: 1.10 E'Medial: 7.94 E/E' Med: 12.60 E' Laterial: 10.60 E/E' Lat: 9.40 Tricuspid Valve TR Pk Ariel: 2.65 TR Pk Grad: 28.00 RA Press: 3.00 RVSP: 31.00 Great Vessels Aorta Ao Root-2D: 2.90 2.0-3.7 cm Ao Asc: 3.00 2.1-3.4 cm Ao Arch: 2.80 Updated in Other Vendor System with Status of Final Isai Mcclelland MD electronically signed on 04/11/2021 12:38:57 PM with status of Final
== END ==
LOC: HO.CARD 07:21
PROVIDERS: Visit Provider Internal Medicine
DX: C50.912 Malignant neoplasm of unspecified site of left female breast (principal)
CPT/HCPCS: 93306; Q9957

== ENCOUNTER → 2021-04-16 09:49 | Outpatient (BNVA) | payer MEDICAID, SELFPAY | PROVIDERS: PCP Nurse Practitioner Family; Visit Provider Surgery | DX: Z13.89 Encounter for screening for other disorder (principal) | CPT/HCPCS: 99212 ==

== ENCOUNTER → 2021-05-01 08:49 | Outpatient (REF) | payer MEDICAID, SELFPAY ==
--- NOTE | ~2021-05-01 | NM_ITS ---
EXAMINATION: NM BONE SCAN OF THE WHOLE BODY CLINICAL INFORMATION: Infiltrating ductal carcinoma left breast. Staging. On chemotherapy. COMPARISON: Staging. TECHNIQUE: Multiple gamma scintillation camera images of the whole body were performed 3 hours following the intravenous administration of 31 mCi Tc-99m MDP. FINDINGS: In the head, unremarkable. In the thoracic cage and upper extremities, unremarkable. In the spine, unremarkable. In the pelvis, unremarkable. In the lower extremities, there is mild focal increased activity seen in bilateral ankle joints, right greater than left, likely degenerative changes. No other definite bony abnormalities are noted. The urinary bladder and faint visualization of both kidneys are noted. NM/NM bone scan whole body IMPRESSION: Mild degenerative changes bilateral ankle joints, otherwise unremarkable whole-body bone scan. No evidence of metastatic bone disease seen.
== END ==
LOC: HO.NUCMED 08:49
PROVIDERS: PCP General Practice; Visit Provider Internal Medicine
DX: C50.912 Malignant neoplasm of unspecified site of left female breast (principal)
CPT/HCPCS: 78306; A9503

== ENCOUNTER 2021-05-17 09:20 | Outpatient (REF) | payer MEDICAID, SELFPAY ==
--- NOTE | ~2021-05-17 | MM_ITS ---
EXAMINATION: BONE DENSITOMETRY CLINICAL INDICATION: Menopausal. COMPARISON: This is the patient's baseline examination. TECHNIQUE: Using a [employer] DXA System (software version: 13.1) manufactured by [employer], dual-energy x-ray absorptiometry was performed of the lumbar spine and left hip. The images are of good technical quality. Summary results are attached. FINDINGS: AP SPINE L1-L4: BMD 1.120 g/cm2, Z-score -0.6, T-score -0.5, normal. LEFT FEMUR, NECK: BMD 0.958 g/cm2, Z-score -0.1, T-score -0.6, normal. LEFT FEMUR, TOTAL: BMD 1.070 g/cm2, Z-score 0.6, T-score 0.5, normal. IDENTIFIED RISK FACTORS: Early menopause, secondary osteoporosis, hysterectomy, bilateral oophorectomy. HISTORY OF FRACTURE: None listed. MEDICATIONS: None listed. MM/XR DEXA axial skeleton IMPRESSION: 1. DIAGNOSIS: Normal bone density based on the lowest T-score value of -0.6 in the femoral neck applying World Health Organization criteria. 2. 10-YEAR FRACTURE RISK PREDICTION, FRAX: Major osteoporotic fracture (clinical spine, forearm, hip or shoulder) 2.4%. Hip fracture 0.1%. 3. Treatment Recommendations: NOF guidelines recommend consideration for treatment in postmenopausal women and men age 50 and older presenting with the following: -A hip or vertebral (clinical or morphometric) fracture. -T-score less than or equal to -2.5 at the femoral neck or spine after appropriate evaluation to exclude secondary causes. -Low bone mass at the hip or spine and a 10-year fracture probability by FRAX of greater than or equal to 3% for hip fracture or greater than or equal to 20% for major osteoporotic fracture based on the [place] adapted WHO algorithm. 4. Other Recommendations: All treatment decisions require clinical judgment and consideration of individual patient factors, including patient preferences, comorbidities, previous drug use, risk factors not captured in the FRAX model (e.g. frailty, falls, vitamin D deficiency, increased bone turnover, interval significant decline in bone density) and possible under or overestimation of fracture risk by FRAX. FUTURE SCAN RECOMMENDATION: People with diagnosed cases of osteoporosis or at high risk for fracture should have regular bone mineral density tests. For patients eligible for Medicare, routine testing is allowed once every 2 years. The testing frequency can be increased to one year for patients who have rapidly progressing disease, those who are receiving or discontinuing medical therapy to restore bone mass, or have additional risk factors.
== END 2021-05-17 09:21 | disposition home or self-care (01) ==
LOC: HO.MAMMO 09:20
PROVIDERS: Visit Provider Advanced Practice Midwife
DX: N95.1 Menopausal and female climacteric states (principal); M81.8 Other osteoporosis without current pathological fracture; B20 Human immunodeficiency virus [HIV] disease; Z90.722 Acquired absence of ovaries, bilateral; Z90.710 Acquired absence of both cervix and uterus
CPT/HCPCS: 77080

== ENCOUNTER → 2021-07-16 09:06 | Outpatient (BNVA) | payer MEDICAID, SELFPAY | PROVIDERS: PCP General Practice; Referring Provider General Practice; Visit Provider Surgery | DX: Z48.89 Encounter for other specified surgical aftercare (principal); Z90.12 Acquired absence of left breast and nipple | CPT/HCPCS: 99212 ==

== ENCOUNTER 2021-09-06 19:05 | Emergency (ER) | payer MEDICAID, SELFPAY ==
[2021-09-06 20:25] VITALS: BP 150/88; PULSE 87; RESP 16; TEMP 36.8; O2SAT 98; BMI 25.7
[2021-09-06 21:41] LABS: MANUAL DIFF FLAG NO
[2021-09-06 21:44] LABS: Basophils Percent Auto 0.2 % (0-2); Eosinophils Percent Auto 0.3 % (0-4); Hematocrit 35.2 % (37-47); Hemoglobin 12.4 g/dl (12.0-16.0); Imm Gran Abs Auto 0.05 X10*3/uL (0.00-0.03); Imm Gran Pct Auto 0.8 % (0.0-0.4); Lymphocytes Absolute Auto 2.2 X10*3/uL (1.2-4.9); Lymphocytes Percent Auto 34.5 % (20-40); Mean Corpuscular HGB Conc 35.2 g/dl (31.0-35.0); Mean Corpuscular Volume 93.6 fL (80-98); Mean Platelet Volume 11.3 fL (9.4-12.3); Monocytes Absolute Auto 0.3 X10*3/uL (0.1-1.2); Monocytes Percent Auto 4.1 % (2-11); Neutrophils Absolute Auto 3.8 X10*3/uL (2.0-8.3); Neutrophils Percent Auto 60.1 % (45-73); Platelet Count 273 X10*3/uL (160-400); Red Blood Count 3.76 X10*6/uL (4.20-5.50); Red Cell Distribution Width 16.7 % (11.0-16.0); White Blood Count 6.3 X10*3/uL (4.8-10.8)
--- NOTE | 2021-09-06 22:05 | ED_ITS ---
HPI - General Adult General Chief complaint: Abdominal Pain Stated complaint: foreign body Time Seen by Provider: 09/06/21 20:52 Source: patient Mode of arrival: ambulatory Limitations: no limitations History of Present Illness HPI narrative: Patient comes to emergency room complaining of possibly seeing a worm in her stool. Patient is currently undergoing chemotherapy for breast cancer, last cycle 3 days ago. Patient denies fever chills, no abdominal pain, no vomiting, no diarrhea. Patient states that she has been seeing white worms coming through her rectum. Patient denies anal pain/itching. Related Data Home Medications Medication Instructions Recorded Confirmed albuterol sulfate 1 amp INHALATION Q6H PRN 02/07/21 09/04/21 albuterol sulfate 90 mcg/actuation 2 puff INHALATION Q4H PRN 02/07/21 09/04/21 aerosol inhaler (ProAir HFA) cetirizine 10 mg tablet 1 tab PO BEDTIME 02/07/21 09/04/21 citalopram 20 mg tablet 1.5 tab PO BEDTIME 02/07/21 09/04/21 clonidine HCl 0.1 mg tablet 0.2 mg PO BEDTIME 02/07/21 09/04/21 dolutegravir 50 mg tablet (Tivicay) 1 tab PO DAILY 02/07/21 09/04/21 emtricitabine 200 mg-tenofovir 1 tab PO DAILY 02/07/21 09/04/21 alafenamide fumarate 25 mg tablet (Descovy) lorazepam 0.5 mg tablet 1 tab PO BEDTIME PRN 02/07/21 09/04/21 pantoprazole 40 mg tablet,delayed 1 tab PO QAM 02/07/21 09/04/21 release zolpidem 10 mg tablet 1 tab PO BEDTIME PRN 02/07/21 09/04/21 Previous Rx's Medication Instructions Recorded prochlorperazine maleate 10 mg 10 mg PO Q6H PRN #30 tab 04/08/21 tablet (Compazine) Wig #1 ea 05/08/21 mastectomy bra (bra, mastectomy) #1 ea 05/08/21 lidocaine 5 % topical gel 1 ea TRANSDERMAL ONCE #30 g 05/29/21 gabapentin 300 mg capsule 300 mg PO BEDTIME #60 cap 08/21/21 Allergies Allergy/AdvReac Type Severity Reaction Status Date / Time codeine [Codeine] Allergy Mild RASH Verified 09/06/21 20:31 Review of Systems Review of Systems: Constitutional : No Weight loss, No Fever, No Chills, No Night Sweats, No Fatigue, No Malaise ENT/Mouth : No Hearing loss, No Ear Pain, No Nasal Congestion, No Sinus Pain, No Hoarseness, No sore throat, No Rhinorrhea, No Swallowing Difficulty Eyes: No Eye Pain, No Swelling, No Redness, No Foreign Body, No Discharge, No Vision Changes Cardiovascular : No Chest Pain, No SOB, No Dyspnea on Exertion, No Orthopnea, No Edema, No Palpitations Respiratory : No Cough, No Sputum, No Wheezing, No Smoke Exposure, No Dyspnea Gastrointestinal : No Nausea, No Vomiting, No Diarrhea, No Constipation, No abdominal Pain, No Hematochezia, No Melena, complaining of seen possibly worms in her stool Genitourinary : no irregular bleeding, No Dysuria, No Urinary Frequency, No Hematuria, No Urinary Incontinence, No Urgency, No Flank Pain, No Urinary Flow Changes, No Hesitancy Musculoskeletal : No joint pain, No Myalgias, No Joint Swelling Skin : No Skin Lesions, No rash Neuro : No Weakness, No Numbness, No Paresthesias, No Loss of Consciousness, No Dizziness, No Headache Psych : No Anxiety/Panic, No Depression, No SI/HI/AH/VH, No Social Issues, Heme/Lymph: No Bruising, No Bleeding,No Lymphadenopathy Endocrine : No Polyuria, No Polydipsia, No Temperature Intolerance PMFSH Past Medical History Medical History Asthma Depression GERD (gastroesophageal reflux disease) HIV (human immunodeficiency virus infection) Surgical History History of excision of mass History of hysterectomy History of lumpectomy of left breast Hx of left mastectomy Family History Family History Maternal Uncle Leukemia Sister Melanoma Mother S/P triple vessel bypass Heart disease Alzheimer disease Daughter Asthma Social History Social History Are you a primary care advocate to a significant other at home: No Do you presently have visiting nurse or other home services: No Alcohol intake: former Cigarette Packs Per Day: 1 Advance Directives: No Advance Directives Information Provided: Yes Patient : No service: No Current occupational status: unemployed Physical Exam Vital Signs: Vital Signs: Last Vital Signs Temp 98.2 F 09/06/21 20:25 Pulse 87 09/06/21 20:25 Resp 16 09/06/21 20:25 BP 150/88 H 09/06/21 20:25 Pulse Ox 98 09/06/21 20:25 Body Mass Index 25.7 Const: Other: Appearance: Alert. Oriented X3. No acute distress. Eyes: Pupils equal, round and reactive to light. ENT: Pharynx normal. Neck: Normal inspection. Neck supple. No lymph nodes noted. No crepitus CVS: Normal heart rate and rhythm. Pulses normal. Normal S1 and S2 Respiratory: No respiratory distress. Breath sounds normal. No Wheezing. No rales Abdomen: Soft and nontender. No rigidity. No distention. good BS x4 Skin: Skin warm and dry. Normal skin color. Normal skin turgor. Extremities: No lower extremity edema. No Lacerations. No Rash Neuro: Oriented X 3. No motor deficit. No sensory deficit. Moving all extermities. No slurred speech. Course Course Course Narrative: I discussed with the patient that it is likely on digested food what she saw. The stool sample was sent to the lab. Results will not be coming in today. Also, patient's labs are within normal limits, eosinophil count normal, unlikely to be any parasitic infection or worm infection. Patient struck to follow-up with her primary care physician. Medical Decision Making Lab Data Result diagrams: 09/06/21 21:34 09/06/21 21:34 Labs: Lab Results 09/06/21 Range/Units 21:34 WBC 6.3 (4.8-10.8) X10*3/uL RBC 3.76 L (4.20-5.50) X10*6/uL Hgb 12.4 (12.0-16.0) g/dl Hct 35.2 L (37-47) % MCV 93.6 (80-98) fL MCH 33.0 (27.0-33.0) pg MCHC 35.2 H (31.0-35.0) g/dl RDW 16.7 H (11.0-16.0) % Plt Count 273 (160-400) X10*3/uL MPV 11.3 (9.4-12.3) fL Immature Gran % (Auto) 0.8 H (0.0-0.4) % Neut % (Auto) 60.1 (45-73) % Lymph % (Auto) 34.5 (20-40) % [place] % (Auto) 4.1 (2-11) % Eos % (Auto) 0.3 (0-4) % Baso % (Auto) 0.2 (0-2) % Lymph # (Auto) 2.2 (1.2-4.9) X10*3/uL [place] # (Auto) 0.3 (0.1-1.2) X10*3/uL Eos # (Auto) 0.0 (0.0-0.4) X10*3/uL Baso # (Auto) 0.0 (0.0-0.2) X10*3/uL Abs Immat Gran (auto) 0.05 H (0.00-0.03) X10*3/uL Absolute Neuts (auto) 3.8 (2.0-8.3) X10*3/uL Absolute Nucleated RBC 0.000 (0.0-0.012) X10*3/uL Nucleated RBC % (auto) 0.0 (0.0-0.2) /100WBC Discharge Plan Discharge Clinical Impression: Abnormal stools Patient Disposition: Home, Self-Care Additional Instructions: Please follow-up with your primary care physician tomorrow. If you have any worsening or new symptoms, please return to the emergency room or call 911 Prescriptions: No Action prochlorperazine maleate [Compazine] 10 mg Tablet 10 mg PO Q6H PRN (Reason: Nausea) Qty: 30 RF: 3 (DME) bra, mastectomy Crystals Qty: 1 RF: 0 (DME) Wig Kit Qty: 1 RF: 0 lidocaine 5 % Gel 1 ea transdermal ONCE Qty: 30 RF: 0 gabapentin 300 mg Capsule 300 mg PO BEDTIME Qty: 60 RF: 3 clonidine HCl 0.1 mg tablet 0.2 mg PO BEDTIME RF: 0 albuterol sulfate 2.5 mg /3 mL (0.083 %) solution for nebulization 1 amp inhalation Q6H PRN (Reason: Wheezing) RF: 0 cetirizine 10 mg tablet 1 tab PO BEDTIME RF: 0 citalopram 20 mg tablet 1.5 tab PO BEDTIME RF: 0 lorazepam 0.5 mg tablet 1 tab PO BEDTIME PRN (Reason: anxiety) RF: 0 pantoprazole 40 mg tablet,delayed release (DR/EC) 1 tab PO QAM RF: 0 zolpidem 10 mg tablet 1 tab PO BEDTIME PRN (Reason: Insomnia) RF: 0 albuterol sulfate [ProAir HFA] 90 mcg/actuation HFA aerosol inhaler 2 puff inhalation Q4H PRN (Reason: Wheezing) RF: 0 Tivicay 50 mg tablet 1 tab PO DAILY RF: 0 Descovy 200-25 mg tablet 1 tab PO DAILY RF: 0
[2021-09-06 22:06] LABS: Alanine Aminotransferase 44 U/L (0-31); Albumin Level 4.2 g/dL (3.5-5.0); Alkaline Phosphatase 77 U/L (39-117); Anion Gap 14 (12-20); Aspartate Amino Transferase 22 U/L (5-31); Bilirubin Direct < 0.2 mg/dL (0.0-0.5); Bilirubin Total 0.3 mg/dL (0.0-1.0); Blood Urea Nitrogen 11 mg/dL (9-16); Calcium 8.9 mg/dL (8.4-10.2); Carbon Dioxide 22 mmol/L (22-29); Chloride 109 mmol/L (96-108); Creatinine Clr Calc Pharmacy 63.6; Estimated Glomerular Filt Rate 60; Glucose Random 114 mg/dL (60-115); Potassium 3.9 mmol/L (3.3-5.1); Sodium 141 mmol/L (135-145); Total Protein 7.1 g/dL (6.5-8.0)
[2021-09-06 22:34] VITALS: BP 138/91; PULSE 83; RESP 16; O2SAT 96
== END 2021-09-06 22:41 | disposition home or self-care (01) ==
PROVIDERS: Emergency Provider Emergency Medicine
DX: R19.5 Other fecal abnormalities (principal); Z87.891 Personal history of nicotine dependence; Z79.899 Other long term (current) drug therapy
CPT/HCPCS: 36415; 80048; 80076; 85025; 87045; 87046; 99283

== ENCOUNTER → 2021-12-17 11:07 | Outpatient (BNVA) | payer MEDICAID, SELFPAY | PROVIDERS: Visit Provider Surgery | DX: C50.912 Malignant neoplasm of unspecified site of left female breast (principal); Z90.12 Acquired absence of left breast and nipple | CPT/HCPCS: 99212 ==

== ENCOUNTER → 2022-01-14 14:20 | Outpatient (BNVA) | payer MEDICAID, SELFPAY | PROVIDERS: Visit Provider Surgery Vascular Surgery | DX: I83.11 Varicose veins of right lower extremity with inflammation (principal) | CPT/HCPCS: 99202 ==

== ENCOUNTER 2022-01-21 10:19 | Outpatient (REF) | payer MEDICAID, SELFPAY ==
--- NOTE | ~2022-01-21 | US_ITS ---
EXAMINATION: US LOWER EXTREMITY VENOUS (REFLUX EXAM), BILATERAL CLINICAL INDICATION: This is a 51-year-old female with venous insufficiency and varicose veins. COMPARISON: None. TECHNIQUE: Color flow triplex imaging and compression Doppler was performed to evaluate both the deep and the superficial systems bilaterally. To evaluate the superficial system, the examination was performed in the upright position. Color-flow Doppler ultrasound and compression ultrasound were utilized. In addition, maneuvers were utilized to demonstrate reflux. FINDINGS: 1. DEEP VENOUS ULTRASOUND OF THE RIGHT LOWER EXTREMITY: Common Femoral Vein: Compressible, normal respiratory variation and augmented flow. Femoral vein: Compressible, normal color flow and augmentation. Popliteal Vein: Compressible, normal augmentation. Deep Reflux: There is no evidence of reflux in the deep system in either the common femoral vein or the popliteal vein. There is no evidence of a Leiva's cyst. 2. SUPERFICIAL ULTRASOUND WITH DOPPLER OF RIGHT LOWER EXTREMITY: GREAT SAPHENOUS VEIN: Saphenofemoral Junction: 0.5 cm Mid Thigh: 0.1 cm Above Knee: 0.1 cm Below Knee: 0.1 cm Mid Calf: 0.1 cm Ankle: 0.1 cm GSV REFLUX: No evidence of reflux. DUPLICATED GREAT SAPHENOUS VEIN: There is a 0.4 cm medial duplicated great saphenous vein without reflux. SMALL SAPHENOUS VEIN: Proximal: 0.2 cm Distal: 0.1 cm SSV REFLUX: No evidence of reflux. VEIN OF GIACOMINI: None Imaged. PERFORATORS: None Imaged VARICOSITIES: None Imaged 3. DEEP VENOUS ULTRASOUND OF THE LEFT LOWER EXTREMITY: Common Femoral Vein: Compressible, normal respiratory variation and augmented flow. Femoral Vein: Compressible, normal color flow and augmentation. Popliteal Vein: Compressible, normal augmentation. Deep Reflux: There is no evidence of reflux in the deep system in either the common femoral vein or the popliteal vein. There is no evidence of a Leiva's cyst. 4. SUPERFICIAL ULTRASOUND WITH DOPPLER OF LEFT LOWER EXTREMITY: GREAT SAPHENOUS VEIN: Saphenofemoral Junction: 0.5 cm Mid Thigh: 0.2 cm Above Knee: 0.2 cm Below Knee: 0.2 cm Mid Calf: 0.1 cm Ankle: 0.2 cm GSV REFLUX: No evidence of reflux. DUPLICATED GREAT SAPHENOUS VEIN: There is a 0.1 cm duplicated lateral great saphenous vein without reflux. SMALL SAPHENOUS VEIN: Proximal: 0.3 cm Distal: 0.2 cm SSV REFLUX: No evidence of reflux. VEIN OF GIACOMINI: None Imaged. 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 VARICOSITIES: None Imaged US/US venous duplex LE BI IMPRESSION: 1. There are bilateral patent great saphenous veins and small saphenous veins without evidence of reflux. 2. No varicosities are seen.
== END 2022-01-21 10:20 | disposition home or self-care (01) ==
LOC: HO.US 10:19
PROVIDERS: Visit Provider Surgery Vascular Surgery
DX: I83.11 Varicose veins of right lower extremity with inflammation (principal)
CPT/HCPCS: 93970

== ENCOUNTER → 2022-02-13 14:01 | Outpatient (BNVA) | payer MEDICAID, SELFPAY | PROVIDERS: PCP General Practice; Visit Provider Surgery Vascular Surgery | DX: I83.11 Varicose veins of right lower extremity with inflammation (principal) | CPT/HCPCS: 99212 ==

== ENCOUNTER 2022-02-17 07:37 | Outpatient (REF) | payer MEDICAID, SELFPAY ==
[2022-02-17 08:12] LABS: COVID-19 Test Negative (Negative); IDNOW Serial# 16C4AD1C
== END 2022-02-17 07:38 | disposition home or self-care (01) ==
LOC: HO.LAB 07:37
PROVIDERS: Visit Provider Internal Medicine
DX: Z20.822 Contact with and (suspected) exposure to COVID-19 (principal)
CPT/HCPCS: 87635; C9803

== ENCOUNTER 2022-06-03 10:58 | Outpatient (REF) | payer MEDICAID, SELFPAY ==
--- NOTE | ~2022-06-03 | MM_ITS ---
EXAMINATION: MM SCREENING DIGITAL BREAST TOMOSYNTHESIS, RIGHT CLINICAL INFORMATION: Screening. Asymptomatic. Status post left mastectomy in 2020 COMPARISON: Mammography: January 29, 2021 and studies dating back to August 30, 2012 TECHNIQUE: Digital breast tomosynthesis is performed in both the craniocaudal and mediolateral oblique views along with computer-aided detection (CAD). Synthesized 2D images are generated from the tomosynthesis. FINDINGS: The breasts are heterogeneously dense, which may obscure small masses (ACR BI-RADS breast composition Category c). There are no new significant masses, abnormal calcifications, or other abnormalities. Port reservoir seen within the right axilla. Stable calcifications noted deep upper outer aspect of the right breast. MM/MM tomosynthesis screening RT IMPRESSION: There are no significant changes from prior study. ASSESSMENT: BI-RADS 2: Benign RECOMMENDATION: Routine annual mammography screening. This patient's information was entered into a reminder system with a target due date for their next mammogram.
== END 2022-06-03 10:59 | disposition home or self-care (01) ==
LOC: HO.MAMMO 10:58
PROVIDERS: Visit Provider Internal Medicine
DX: Z12.31 Encounter for screening mammogram for malignant neoplasm of breast (principal)
CPT/HCPCS: 77063; 77067

== ENCOUNTER → 2022-06-17 09:38 | Outpatient (BNVA) | payer MEDICAID, SELFPAY | PROVIDERS: PCP General Practice; Visit Provider Surgery | DX: Z85.3 Personal history of malignant neoplasm of breast (principal); Z90.12 Acquired absence of left breast and nipple | CPT/HCPCS: 99212 ==

== ENCOUNTER 2022-11-18 20:22 | Emergency (ER) | payer MEDICAID, SELFPAY ==
--- NOTE | 2022-11-18 20:26 | ECG_ITS ---
Test Reason : ARM PAIN Blood Pressure : / mmHG Vent. Rate : 062 BPM Atrial Rate : 062 BPM P-R Int : 186 ms QRS Dur : 086 ms QT Int : 422 ms P-R-T Axes : 026 -07 023 degrees QTc Int : 428 ms Normal sinus rhythm Minimal voltage criteria for LVH, may be normal variant ( R in aVL ) Possible Anterior infarct , age undetermined Abnormal ECG When compared with ECG of 30-JUL-2019 16:58, No significant change was found Referred By: Padmini Yoder Electronically Signed By:CLIFTON TOVAR
--- NOTE | 2022-11-18 20:26 | ED_ITS ---
HPI - General Adult General Chief complaint: General Medical <OFELIA Sanabria - Last Filed: 11/18/22 20:30> Stated complaint: sharp pain in left arm and numbness in hands <OFELIA Sanabria - Last Filed: 11/18/22 20:30> Time Seen by Provider: 11/18/22 23:51 <OFELIA Sanabria - Last Filed: 11/18/22 20:30> Source: patient <Omar Green MD - Last Filed: 11/19/22 01:34> Mode of arrival: ambulatory <Omar Green MD - Last Filed: 11/19/22 01:34> Limitations: no limitations <Omar Green MD - Last Filed: 11/19/22 01:34> History of Present Illness HPI narrative: Patient history of breast cancer not on any chemotherapy, history of HIV. Comes here for 3 days of tingling sensation in bilateral tip of the fingers no paresthesia in the lower extremities patient never had similar complaints in the past no new medications. No neck pain no weakness no headache <Omar Green MD - Last Filed: 11/19/22 01:34> Related Data Home medications: Home Medications Medication Instructions Recorded Confirmed albuterol sulfate 2.5 mg/3 mL 1 amp inhalation Q6H PRN Wheezing 02/07/21 06/24/22 (0.083 %) solution for nebulization albuterol sulfate 90 mcg/actuation 2 puff inhalation Q4H PRN Wheezing 02/07/21 06/24/22 aerosol inhaler (ProAir HFA) cetirizine 10 mg tablet 1 tab PO BEDTIME 02/07/21 06/24/22 clonidine HCl 0.1 mg tablet 0.2 mg PO BEDTIME 02/07/21 06/24/22 dolutegravir 50 mg tablet (Tivicay) 1 tab PO DAILY 02/07/21 06/24/22 emtricitabine 200 mg-tenofovir 1 tab PO DAILY 02/07/21 06/24/22 alafenamide fumarate 25 mg tablet (Descovy) lorazepam 0.5 mg tablet 1 tab PO BEDTIME PRN anxiety 02/07/21 06/24/22 pantoprazole 40 mg tablet,delayed 1 tab PO QAM 02/07/21 06/24/22 release zolpidem 10 mg tablet 1 tab PO BEDTIME PRN Insomnia 02/07/21 06/24/22 docusate sodium 100 mg capsule 100 mg PO BEDTIME 12/17/21 06/24/22 montelukast 10 mg tablet 10 mg PO BEDTIME 12/17/21 06/24/22 polyethylene glycol 3350 17 17 g PO DAILY PRN constipation 12/17/21 06/24/22 gram/dose oral powder Previous Rx's Medication Instructions Recorded prochlorperazine maleate 10 mg 10 mg PO Q6H PRN Nausea #30 tabs 04/08/21 tablet (Compazine) Wig #1 ea 05/08/21 mastectomy bra (bra, mastectomy) #1 ea 05/08/21 gabapentin 600 mg tablet 600 mg PO BID #60 tabs 10/18/21 duloxetine 30 mg capsule,delayed 60 mg PO DAILY #60 caps 11/13/21 release (Cymbalta) vitamin B complex-folic acid 0.4 1 tab PO BEDTIME #90 tabs 05/06/22 mg tablet (B Complex 1 (with folic acid)) gabapentin 600 mg tablet 600 mg PO BID #60 tabs 11/19/22 <OFELIA Sanabria - Last Filed: 11/18/22 20:30> Allergies/adverse reactions: Allergies Allergy/AdvReac Type Severity Reaction Status Date / Time codeine [Codeine] Allergy Mild RASH Verified 06/17/22 09:41 <OFELIA Sanabria - Last Filed: 11/18/22 20:30> Review of Systems Review of Systems: Yes all other systems are reviewed and are negative <Omar Green MD - Last Filed: 11/19/22 01:34> [facility] Past Medical History Medical History: Medical History Asthma Depression GERD (gastroesophageal reflux disease) HIV (human immunodeficiency virus infection) <OFELIA Sanabria - Last Filed: 11/18/22 20:30> Surgical History: Surgical History History of excision of mass History of hysterectomy History of lumpectomy of left breast Hx of left mastectomy <OFELIA Sanabria - Last Filed: 11/18/22 20:30> Family History Family History: Family History Maternal Uncle Leukemia Sister Melanoma Mother S/P triple vessel bypass Heart disease Alzheimer disease Daughter Asthma <OFELIA Sanabria - Last Filed: 11/18/22 20:30> Social History Social History: Social History Household Members: None Housing: Apartment Are you a primary manager urgent care to a significant other at home: No Do you presently have visiting nurse or other home services: No Alcohol intake: former Patient Tobacco Use Status: Former Tobacco user Advance Directives: No Advance Directives Information Provided: No service: No Current occupational status: unemployed <OFELIA Sanabria - Last Filed: 11/18/22 20:30> Physical Exam ED Vital Signs: Vital Signs - 24 hr 11/18/22 20:27 11/18/22 23:54 Temperature 97.6 F 98.3 F Pulse Rate 72 71 Respiratory Rate 16 16 Blood Pressure 161/73 H 146/70 H Pulse Oximetry 97 97 Oxygen Delivery Method Room Air Room Air BMI result Body Mass Index 34.3 <OFELIA Sanabria - Last Filed: 11/18/22 20:30> Vital Signs - 24 hr 11/18/22 20:27 11/18/22 23:54 Temperature 97.6 F 98.3 F Pulse Rate 72 71 Respiratory Rate 16 16 Blood Pressure 161/73 H 146/70 H Pulse Oximetry 97 97 Oxygen Delivery Method Room Air Room Air BMI result Body Mass Index 34.3 <Omar Green MD - Last Filed: 11/19/22 01:34> Appearance: Alert. Oriented X3. No acute distress. Eyes: PERRLA, No Nystagmus ENT: Pharynx normal. Oral Mucosa moist Neck: Normal inspection. Neck supple. No midline tenderness CVS: Normal heart rate and rhythm. Pulses normal. Respiratory: No respiratory distress. Equal air entry bilateral, no wheezing/rales/rhonchi Abdomen: Soft and nontender. Bowel sounds are present, no mass palpable, no CVA tenderness Skin: Skin warm and dry. Normal skin color. Normal skin turgor. Extremities: No lower extremity edema. No calf tenderness Neuro: Oriented X 3. No motor deficit. No sensory deficit.No cerebellar signs , cranial nerves II-XII intact <Omar Green MD - Last Filed: 11/19/22 01:34> Course Course Course Narrative: [place]--52-year-old female with a past medical history of asthma, GERD, HIV, c/o sharp pain/tingling in bilateral hands since 9AM. Admits sx have been constant. Denies known injury, trauma, weakness, headache, chest pain/shortness of breath No appreciable deformity. Full range of motion and strength intact bilateral hands/upper extremities. Reports decreased sensation to all fingertips EKG, labs ordered in triage <OFELIA Sanabria - Last Filed: 11/18/22 20:30> Medications Administered Discontinued Medications Generic Name Dose Route Start Last Admin Trade Name Freq PRN Reason Stop Dose Admin Gabapentin 600 mg 11/19/22 00:16 11/19/22 00:26 Gabapentin 600 Mg Tablet PO 11/19/22 00:17 600 mg ONCE ONE Administration <OFELIA Sanabria - Last Filed: 11/18/22 20:30> Medications Administered Discontinued Medications Generic Name Dose Route Start Last Admin Trade Name Freq PRN Reason Stop Dose Admin Gabapentin 600 mg 11/19/22 00:16 11/19/22 00:26 Gabapentin 600 Mg Tablet PO 11/19/22 00:17 600 mg ONCE ONE Administration <Omar Green MD - Last Filed: 11/19/22 01:34> Medical Decision Making Medical Decision Making [facility] Narrative: Patient with bilateral hand paresthesia etiology not very clear reflexes are normal patient does have HIV and history of breast cancer likely medication side effect . Patient advised to continue gabapentin and follow with PCP/neuro logy <Omar Green MD - Last Filed: 11/19/22 01:34> Lab Data [facility] Lab Attestation statement: I reviewed the patient's lab results. <Omar Green MD - Last Filed: 11/19/22 01:34> Result Diagrams: : 11/18/22 20:57 11/18/22 20:57 <OFELIA Sanabria - Last Filed: 11/18/22 20:30> Labs: Lab Results 11/18/22 11/18/22 Range/Units 20:57 20:57 WBC 8.3 (4.8-10.8) X10*3/uL RBC 4.13 L (4.20-5.50) X10*6/uL Hgb 12.8 (12.0-16.0) g/dl Hct 37.4 (37.0-47.0) % MCV 90.6 (80.0-98.0) fL MCH 31.0 (27.0-33.0) pg MCHC 34.2 (31.0-35.0) g/dl RDW 13.8 (11.0-16.0) % Plt Count 182 (160-400) X10*3/uL MPV 12.6 H (9.4-12.3) fL Immature Gran % (Auto) 0.2 (0.0-0.4) % Neut % (Auto) 38.8 L (45-73) % Lymph % (Auto) 51.0 H (20-40) % [place] % (Auto) 8.0 (2-11) % Eos % (Auto) 1.8 (0-4) % Baso % (Auto) 0.2 (0-2) % Lymph # (Auto) 4.2 (1.2-4.9) X10*3/uL [place] # (Auto) 0.7 (0.1-1.2) X10*3/uL Eos # (Auto) 0.2 (0.0-0.4) X10*3/uL Baso # (Auto) 0.0 (0.0-0.2) X10*3/uL Abs Immat Gran (auto) 0.02 (0.00-0.03) X10*3/uL Absolute Neuts (auto) 3.2 (2.0-8.3) x10*3/uL Absolute Nucleated RBC 0.000 (0.0-0.012) X10*3/uL Nucleated RBC % (auto) 0.0 (0.0-0.2) /100WBC Sodium 140 (135-145) mmol/L Potassium 3.7 (3.3-5.1) mmol/L Chloride 108 (96-108) mmol/L Carbon Dioxide 27 (22-29) mmol/L Anion Gap 9 L (12-20) BUN 10 (9-16) mg/dL Creatinine 0.98 (0.5-1.4) mg/dL Estim Creat Clear Calc 71.6 Estimated GFR 59 Random Glucose 88 (60-115) mg/dL Calcium 9.3 (8.4-10.2) mg/dL Magnesium 2.0 (1.6-2.6) mg/dL Total Bilirubin 0.4 (0.0-1.0) mg/dL Direct Bilirubin < 0.2 (0.0-0.5) mg/dL AST 23 (5-31) U/L ALT 39 H (0-31) U/L Alkaline Phosphatase 120 H (39-117) U/L Total Protein 6.9 (6.5-8.0) g/dL Albumin 4.2 (3.5-5.0) g/dL <OFELIA Sanabria - Last Filed: 11/18/22 20:30> Lab Results 11/18/22 11/18/22 Range/Units 20:57 20:57 WBC 8.3 (4.8-10.8) X10*3/uL RBC 4.13 L (4.20-5.50) X10*6/uL Hgb 12.8 (12.0-16.0) g/dl Hct 37.4 (37.0-47.0) % MCV 90.6 (80.0-98.0) fL MCH 31.0 (27.0-33.0) pg MCHC 34.2 (31.0-35.0) g/dl RDW 13.8 (11.0-16.0) % Plt Count 182 (160-400) X10*3/uL MPV 12.6 H (9.4-12.3) fL Immature Gran % (Auto) 0.2 (0.0-0.4) % Neut % (Auto) 38.8 L (45-73) % Lymph % (Auto) 51.0 H (20-40) % [place] % (Auto) 8.0 (2-11) % Eos % (Auto) 1.8 (0-4) % Baso % (Auto) 0.2 (0-2) % Lymph # (Auto) 4.2 (1.2-4.9) X10*3/uL [place] # (Auto) 0.7 (0.1-1.2) X10*3/uL Eos # (Auto) 0.2 (0.0-0.4) X10*3/uL Baso # (Auto) 0.0 (0.0-0.2) X10*3/uL Abs Immat Gran (auto) 0.02 (0.00-0.03) X10*3/uL Absolute Neuts (auto) 3.2 (2.0-8.3) x10*3/uL Absolute Nucleated RBC 0.000 (0.0-0.012) X10*3/uL Nucleated RBC % (auto) 0.0 (0.0-0.2) /100WBC Sodium 140 (135-145) mmol/L Potassium 3.7 (3.3-5.1) mmol/L Chloride 108 (96-108) mmol/L Carbon Dioxide 27 (22-29) mmol/L Anion Gap 9 L (12-20) BUN 10 (9-16) mg/dL Creatinine 0.98 (0.5-1.4) mg/dL Estim Creat Clear Calc 71.6 Estimated GFR 59 Random Glucose 88 (60-115) mg/dL Calcium 9.3 (8.4-10.2) mg/dL Magnesium 2.0 (1.6-2.6) mg/dL Total Bilirubin 0.4 (0.0-1.0) mg/dL Direct Bilirubin < 0.2 (0.0-0.5) mg/dL AST 23 (5-31) U/L ALT 39 H (0-31) U/L Alkaline Phosphatase 120 H (39-117) U/L Total Protein 6.9 (6.5-8.0) g/dL Albumin 4.2 (3.5-5.0) g/dL <Omar Green MD - Last Filed: 11/19/22 01:34> Discharge Plan Discharge Clinical Impression: Paresthesia of both hands <OFELIA Sanabria - Last Filed: 11/18/22 20:30> Patient Disposition: Home, Self-Care <OFELIA Sanabria - Last Filed: 11/18/22 20:30> Instructions: Paresthesia (ED) <OFELIA Sanabria - Last Filed: 11/18/22 20:30> Additional Instructions: Take gabapentin twice daily as prescribed Follow-up with neurologist/PCP for further evaluation <OFELIA Sanabria - Last Filed: 11/18/22 20:30> Prescriptions: New gabapentin 600 mg tablet 600 mg PO BID Qty: 60 0RF No Action gabapentin 600 mg Tablet 600 mg PO BID Qty: 60 3RF prochlorperazine maleate [Compazine] 10 mg Tablet 10 mg PO Q6H PRN (Reason: Nausea) Qty: 30 3RF (DME) bra, mastectomy Crystals Qty: 1 0RF Rx Instructions: As Directed (DME) Wig Kit Qty: 1 0RF Rx Instructions: As Directed duloxetine [Cymbalta] 30 mg Capsule,Delayed Release(Dr/Ec) 60 mg PO DAILY Qty: 60 2RF Rx Instructions: Start with 30 mg daily for 1 week and then increase to 60 mg daily. vitamin B complex-folic acid [B Complex 1 (with folic acid)] 0.4 mg tablet 1 tab PO BEDTIME Qty: 90 3RF clonidine HCl 0.1 mg tablet 0.2 mg PO BEDTIME albuterol sulfate 2.5 mg /3 mL (0.083 %) solution for nebulization 1 amp inhalation Q6H PRN (Reason: Wheezing) cetirizine 10 mg tablet 1 tab PO BEDTIME lorazepam 0.5 mg tablet 1 tab PO BEDTIME PRN (Reason: anxiety) pantoprazole 40 mg tablet,delayed release (DR/EC) 1 tab PO QAM zolpidem 10 mg tablet 1 tab PO BEDTIME PRN (Reason: Insomnia) albuterol sulfate [ProAir HFA] 90 mcg/actuation HFA aerosol inhaler 2 puff inhalation Q4H PRN (Reason: Wheezing) Tivicay 50 mg tablet 1 tab PO DAILY Descovy 200-25 mg tablet 1 tab PO DAILY montelukast 10 mg tablet 10 mg PO BEDTIME polyethylene glycol 3350 17 gram/dose powder 17 g PO DAILY PRN (Reason: constipation) docusate sodium 100 mg capsule 100 mg PO BEDTIME <OFELIA Sanabria Last Filed: 11/18/22 20:30> Referrals: Memo Francis MD [Physician] - 2 weeks <OFELIA Sanabria - Last Filed: 11/18/22 20:30> Interventions: ED Discharge Assessment Last Done: 11/19/22 00:33 <OFELIA Sanabria - Last Filed: 11/18/22 20:30> Discharge Date/Time: 11/19/22 00:34 <OFELIA Sanabria - Last Filed: 11/18/22 20:30>
[2022-11-18 20:27] VITALS: BP 161/73; PULSE 72; RESP 16; TEMP 36.4; O2SAT 97; BMI 34.3
[2022-11-18 21:06] LABS: MANUAL DIFF FLAG NO
[2022-11-18 21:07] LABS: Basophils Percent Auto 0.2 % (0-2); Eosinophils Absolute Auto 0.2 X10*3/uL (0.0-0.4); Eosinophils Percent Auto 1.8 % (0-4); Hematocrit 37.4 % (37.0-47.0); Hemoglobin 12.8 g/dl (12.0-16.0); Imm Gran Abs Auto 0.02 X10*3/uL (0.00-0.03); Imm Gran Pct Auto 0.2 % (0.0-0.4); Lymphocytes Absolute Auto 4.2 X10*3/uL (1.2-4.9); Mean Corpuscular HGB Conc 34.2 g/dl (31.0-35.0); Mean Corpuscular Volume 90.6 fL (80.0-98.0); Mean Platelet Volume 12.6 fL (9.4-12.3); Monocytes Absolute Auto 0.7 X10*3/uL (0.1-1.2); Neutrophils Absolute Auto 3.2 x10*3/uL (2.0-8.3); Neutrophils Percent Auto 38.8 % (45-73); Platelet Count 182 X10*3/uL (160-400); Red Blood Count 4.13 X10*6/uL (4.20-5.50); Red Cell Distribution Width 13.8 % (11.0-16.0); White Blood Count 8.3 X10*3/uL (4.8-10.8)
[2022-11-18 21:23] LABS: Alanine Aminotransferase 39 U/L (0-31); Albumin Level 4.2 g/dL (3.5-5.0); Alkaline Phosphatase 120 U/L (39-117); Anion Gap 9 (12-20); Aspartate Amino Transferase 23 U/L (5-31); Bilirubin Direct < 0.2 mg/dL (0.0-0.5); Bilirubin Total 0.4 mg/dL (0.0-1.0); Blood Urea Nitrogen 10 mg/dL (9-16); Calcium 9.3 mg/dL (8.4-10.2); Carbon Dioxide 27 mmol/L (22-29); Chloride 108 mmol/L (96-108); Creatinine Clr Calc Pharmacy 71.6; Estimated Glomerular Filt Rate 59; Glucose Random 88 mg/dL (60-115); Potassium 3.7 mmol/L (3.3-5.1); Sodium 140 mmol/L (135-145); Total Protein 6.9 g/dL (6.5-8.0)
[2022-11-18 23:54] VITALS: BP 146/70; PULSE 71; RESP 16; TEMP 36.8; O2SAT 97
[2022-11-19] MEDS: Gabapentin 600 MG TABLET PO (00:26)
== END 2022-11-19 00:34 | disposition home or self-care (01) ==
PROVIDERS: Physician Assistant; Emergency Provider Internal Medicine; PCP General Practice
DX: R20.2 Paresthesia of skin (principal); B20 Human immunodeficiency virus [HIV] disease; Z85.3 Personal history of malignant neoplasm of breast; Z79.899 Other long term (current) drug therapy
CPT/HCPCS: 36415; 80048; 80076; 83735; 85025; 93005; 99283; 99284

== ENCOUNTER 2023-01-30 10:00 | Outpatient (RCR) | payer MEDICAID, SELFPAY | END 2023-02-09 10:07 | disposition home or self-care (01) | LOC: HO.OT 10:00 | PROVIDERS: PCP General Practice; Visit Provider General Practice | DX: G62.0 Drug-induced polyneuropathy (principal) | CPT/HCPCS: 29125; 97035; 97110; 97166; 97760 ==

== ENCOUNTER 2023-05-26 08:54 | Day surgery (SDC) | payer MEDICAID, SELFPAY ==
--- NOTE | ~2023-05-26 | IR_ITS ---
PROCEDURE: Removal of right chest port CLINICAL INFORMATION: Right chest port no longer needed COMPARISON: None available. TECHNIQUE/findings: Patient was placed supine in the procedure table. The right upper chest was sterilely prepped and draped. 1% lidocaine was administered for local anesthesia. She transverse incision was made just above the indwelling right chest port. The catheter and port were easily dissected and removed from the soft tissues including 2 deep fixation sutures. The pocket was flushed with saline and dried. The incision was closed with 3 interrupted deep 3-0 resorbable sutures followed by a layer of skin glue. A sterile dressing was applied IR/IR cvc remove tunnel w prt/accounts receivable assistant IMPRESSION: Successful removal of right chest port
[2023-05-26 09:08] VITALS: BMI 33.1
[2023-05-26 09:28] LABS: MANUAL DIFF FLAG NO
[2023-05-26 09:29] LABS: Basophils Percent Auto 0.6 % (0-2); Eosinophils Absolute Auto 0.1 X10*3/uL (0.0-0.4); Eosinophils Percent Auto 1.6 % (0-4); Hematocrit 42.4 % (37.0-47.0); Hemoglobin 14.2 g/dl (12.0-16.0); Lymphocytes Absolute Auto 3.3 X10*3/uL (1.2-4.9); Lymphocytes Percent Auto 48.1 % (20-40); Mean Corpuscular HGB Conc 33.5 g/dl (31.0-35.0); Mean Corpuscular Hemoglobin 30.8 pg (27.0-33.0); Mean Platelet Volume 12.4 fL (9.4-12.3); Monocytes Absolute Auto 0.5 X10*3/uL (0.1-1.2); Monocytes Percent Auto 7.7 % (2-11); Neutrophils Absolute Auto 2.8 x10*3/uL (2.0-8.3); Platelet Count 195 X10*3/uL (160-400); Red Blood Count 4.61 X10*6/uL (4.20-5.50); Red Cell Distribution Width 14.1 % (11.0-16.0); White Blood Count 6.8 X10*3/uL (4.8-10.8)
[2023-05-26 09:37] LABS: INTERNATIONAL NORM RATIO 0.9 (0.9-1.1); Prothrombin Time 10.7 SEC (10.0-13.1)
[2023-05-26 09:39] LABS: Partial Thromboplastin Time 28.5 SEC (26.0-36.4)
[2023-05-26 09:49] LABS: Anion Gap 13 (12-20); Blood Urea Nitrogen 9 mg/dL (9-16); Carbon Dioxide 24 mmol/L (22-29); Chloride 106 mmol/L (96-108); Creatinine Clr Calc Pharmacy 70.2; Estimated Glomerular Filt Rate 59; Potassium 3.7 mmol/L (3.3-5.1); Sodium 139 mmol/L (135-145)
[2023-05-26 11:45] VITALS: BP 125/67; PULSE 63; RESP 22; TEMP 36.5; O2SAT 96
[2023-05-26 12:00] VITALS: BP 125/66; PULSE 62; RESP 20; O2SAT 95
[2023-05-26 12:42] VITALS: BP 125/67; PULSE 72; RESP 18; TEMP 36.1; O2SAT 99
== END 2023-05-26 12:46 | disposition home or self-care (01) ==
LOC: HO.SSS 08:54
PROVIDERS: Radiology Diagnostic Radiology; PCP General Practice; Visit Provider Radiology Diagnostic Radiology
DX: Z45.2 Encounter for adjustment and management of vascular access device (principal); Z85.3 Personal history of malignant neoplasm of breast; J45.909 Unspecified asthma, uncomplicated; B20 Human immunodeficiency virus [HIV] disease; Z92.21 Personal history of antineoplastic chemotherapy; Z90.12 Acquired absence of left breast and nipple
CPT/HCPCS: 36415; 36590; 80051; 82565; 84520; 85025; 85610; 85730; 99152; C1769; J0690; J2250; J3010

== ENCOUNTER → 2023-05-26 10:15 | Outpatient (BNV) | payer MEDICAID, SELFPAY | PROVIDERS: PCP General Practice; Visit Provider Student in an Organized Health Care Education/Training Program | DX: Z45.2 Encounter for adjustment and management of vascular access device (principal) | CPT/HCPCS: 36590 ==

== ENCOUNTER 2023-07-30 09:57 | Outpatient (REF) | payer MEDICAID, SELFPAY ==
[2023-07-30 11:54] LABS: Eosinophils Absolute Auto 0.1 X10*3/uL (0.0-0.4); Eosinophils Percent Auto 1.1 % (0-4); Imm Gran Abs Auto 0.01 X10*3/uL (0.00-0.03); Imm Gran Pct Auto 0.2 % (0.0-0.4); SCAN SMEAR FLAG 1
[2023-07-30 11:56] LABS: Basophils Percent Auto 0.5 % (0-2); Hematocrit 41.9 % (37.0-47.0); Hemoglobin 14.1 g/dl (12.0-16.0); Lymphocytes Absolute Auto 3.3 X10*3/uL (1.2-4.9); Lymphocytes Percent Auto 49.5 % (20-40); Mean Corpuscular HGB Conc 33.7 g/dl (31.0-35.0); Mean Corpuscular Volume 92.1 fL (80.0-98.0); Mean Platelet Volume 13.6 fL (9.4-12.3); Monocytes Absolute Auto 0.5 X10*3/uL (0.1-1.2); Monocytes Percent Auto 7.5 % (2-11); Neutrophils Absolute Auto 2.7 x10*3/uL (2.0-8.3); Neutrophils Percent Auto 41.2 % (45-73); Platelet Count 163 X10*3/uL (160-400); Red Blood Count 4.55 X10*6/uL (4.20-5.50); Red Cell Distribution Width 13.8 % (11.0-16.0); White Blood Count 6.6 X10*3/uL (4.8-10.8)
[2023-07-30 11:57] LABS: PLT ABN DIST 1
[2023-07-30 11:58] LABS: MANUAL DIFF FLAG NO
[2023-07-30 12:24] LABS: Alanine Aminotransferase 18 U/L (0-31); Albumin Level 4.1 g/dL (3.5-5.0); Alkaline Phosphatase 93 U/L (39-117); Anion Gap 11 (12-20); Aspartate Amino Transferase 12 U/L (5-31); Bilirubin Total 0.4 mg/dL (0.0-1.0); Blood Urea Nitrogen 10 mg/dL (9-16); Calcium 9.3 mg/dL (8.4-10.2); Carbon Dioxide 25 mmol/L (22-29); Chloride 108 mmol/L (96-108); Estimated Glomerular Filt Rate 58; Glucose Random 97 mg/dL (60-115); Sodium 140 mmol/L (135-145); Total Protein 6.9 g/dL (6.5-8.0)
[2023-07-30 13:42] LABS: Appearance Urine Clear; Color Urine Yellow; Glucose Urine UA Negative (Negative); Leukocyte Esterase Urine Negative (Negative); Nitrite Urine Negative (Negative); Specific Gravity - Urine 1.015 (1.005-1.025); Urine Blood Negative (Negative); Urine Ketones Negative (Negative); Urine Protein Negative (Neg-Trace)
[2023-08-03 08:09] LABS: Absolute CD3 Count 2986 cells/uL (840-3060); Absolute CD4 Count 727 cells/uL (490-1740); Absolute CD8 Count 2276 cells/uL (180-1170); Absolute Lymphocytes 3315 cells/uL (850-3900); CD4 CD8 Ratio 0.32 (0.86-5.00); Percent CD3 Cells 90 % (57-85); Percent CD4 Cells 22 % (30-61); Percent CD8 Cells 69 % (12-42)
[2023-08-03 16:23] LABS: HIV RNA PCR Qn Copies 115 Copies/mL; HIV RNA PCR Qn Log Copies 2.06 Log cps/mL
== END 2023-07-30 09:58 | disposition home or self-care (01) ==
LOC: HO.HHCL 09:57
PROVIDERS: Visit Provider Internal Medicine
DX: B20 Human immunodeficiency virus [HIV] disease (principal)
CPT/HCPCS: 36415; 80053; 81003; 85025; 86359; 86360; 87536; 87900

== ENCOUNTER 2023-09-29 07:56 | Outpatient (REF) | payer MEDICAID, SELFPAY ==
--- NOTE | ~2023-09-29 | MM_ITS ---
EXAMINATION: MM SCREENING DIGITAL BREAST TOMOSYNTHESIS, BILATERAL CLINICAL INFORMATION: Screening. Asymptomatic. Status post left mastectomy. COMPARISON: Mammography: This study is compared with prior exams dating back to 2019. TECHNIQUE: Digital breast tomosynthesis is performed in both the craniocaudal and mediolateral oblique views along with computer-aided detection (CAD). Synthesized 2D images are generated from the tomosynthesis. FINDINGS: The breasts are heterogeneously dense, which may obscure small masses (ACR BI-RADS breast composition Category c). There are no significant masses, abnormal calcifications, or other abnormalities. There is tissue marker present in the upper outer quadrant of the right breast. There are benign calcifications present in the right breast. Some of these calcifications appear to be confined to oval, well-circumscribed, benign focal asymmetry and represent an involuting fibroadenoma. MM/MM tomosynthesis screening RT IMPRESSION: No mammographic evidence of malignancy. ASSESSMENT: BI-RADS BI-RADS 2 - Benign Findings RECOMMENDATION: Routine annual mammography screening. 1 year F/U This examination should not preclude the clinical evaluation of a suspicious palpable abnormality. This patient's information was entered into a reminder system with a target due date for their next mammogram.
== END 2023-09-29 07:57 | disposition home or self-care (01) ==
LOC: HO.MAMMO 07:56
PROVIDERS: PCP General Practice; Visit Provider General Practice
DX: Z12.31 Encounter for screening mammogram for malignant neoplasm of breast (principal)
CPT/HCPCS: 77063; 77067

== ENCOUNTER → 2023-09-29 08:00 | Outpatient (BNV) | payer MEDICAID, SELFPAY | PROVIDERS: PCP General Practice; Visit Provider Radiology Diagnostic Radiology | DX: Z12.31 Encounter for screening mammogram for malignant neoplasm of breast (principal) | CPT/HCPCS: 77063; 77067 ==

== ENCOUNTER 2023-10-01 10:07 | Outpatient (REF) | payer MEDICAID, SELFPAY ==
[2023-10-03 14:48] LABS: HIV RNA PCR Qn Copies 111 copies/mL (NOT DETECTED); HIV RNA PCR Qn Log Copies 2.05 (NOT DETECTED)
== END 2023-10-01 10:08 | disposition home or self-care (01) ==
LOC: HO.HHCL 10:07
PROVIDERS: Visit Provider Internal Medicine
DX: B20 Human immunodeficiency virus [HIV] disease (principal)
CPT/HCPCS: 36415; 87536

== ENCOUNTER 2023-11-11 12:27 | Outpatient (REF) | payer MEDICAID, SELFPAY ==
[2023-11-13 17:54] LABS: HIV RNA PCR Qn Copies <20 DETECTED copies/mL (NOT DETECTED); HIV RNA PCR Qn Log Copies <1.30 DETECTED (NOT DETECTED)
== END 2023-11-11 12:28 | disposition home or self-care (01) ==
LOC: HO.HHCL 12:27
PROVIDERS: Visit Provider Internal Medicine
DX: B20 Human immunodeficiency virus [HIV] disease (principal)
CPT/HCPCS: 36415; 87536

== ENCOUNTER 2024-02-10 09:52 | Outpatient (REF) | payer MEDICAID, SELFPAY ==
[2024-02-10 11:21] LABS: MANUAL DIFF FLAG NO
[2024-02-10 11:53] LABS: Basophils Percent Auto 0.3 % (0-2); Eosinophils Absolute Auto 0.1 X10*3/uL (0.0-0.4); Hematocrit 43.2 % (37.0-47.0); Hemoglobin 14.5 g/dl (12.0-16.0); Imm Gran Abs Auto 0.01 X10*3/uL (0.00-0.03); Imm Gran Pct Auto 0.2 % (0.0-0.4); Lymphocytes Absolute Auto 3.3 X10*3/uL (1.2-4.9); Lymphocytes Percent Auto 51.9 % (20-40); Mean Corpuscular HGB Conc 33.6 g/dl (31.0-35.0); Mean Corpuscular Hemoglobin 30.6 pg (27.0-33.0); Mean Corpuscular Volume 91.1 fL (80.0-98.0); Mean Platelet Volume 12.9 fL (9.4-12.3); Monocytes Absolute Auto 0.5 X10*3/uL (0.1-1.2); Monocytes Percent Auto 7.2 % (2-11); Neutrophils Absolute Auto 2.5 x10*3/uL (2.0-8.3); Neutrophils Percent Auto 39.4 % (45-73); Platelet Count 196 X10*3/uL (160-400); Red Blood Count 4.74 X10*6/uL (4.20-5.50); White Blood Count 6.3 X10*3/uL (4.8-10.8)
[2024-02-10 12:14] LABS: Syphilis Screen Nonreactive (Nonreactive)
[2024-02-10 12:22] LABS: Alanine Aminotransferase 27 U/L (0-31); Albumin Level 4.4 g/dL (3.5-5.0); Alkaline Phosphatase 101 U/L (39-117); Anion Gap 11 (12-20); Aspartate Amino Transferase 19 U/L (5-31); Bilirubin Total 0.4 mg/dL (0.0-1.0); Blood Urea Nitrogen 9 mg/dL (9-16); Calcium 9.2 mg/dL (8.4-10.2); Carbon Dioxide 27 mmol/L (22-29); Chloride 108 mmol/L (96-108); Cholesterol 245 mg/dL (<200); Estimated Glomerular Filt Rate 51; Glucose Random 97 mg/dL (60-115); HDL Cholesterol 61 mg/dL (>40); LDL Cholesterol Calculated 151 mg/dL (<100); Potassium 3.5 mmol/L (3.3-5.1); Sodium 142 mmol/L (135-145); Total Protein 7.5 g/dL (6.5-8.0); Triglycerides 165 mg/dL (<150)
[2024-02-10 12:33] LABS: Reflex LDLD? No
[2024-02-11 07:11] LABS: ~HepC Num1 0.14 S/CO (0.00-0.79); ~Hepatitis C Antibody Nonreactive (Nonreactive)
[2024-02-11 11:58] LABS: Absolute CD3 Count 3075 cells/uL (840-3060); Absolute CD4 Count 846 cells/uL (490-1740); Absolute CD8 Count 2229 cells/uL (180-1170); Absolute Lymphocytes 3438 cells/uL (850-3900); CD4 CD8 Ratio 0.38 (0.86-5.00); Percent CD3 Cells 89 % (57-85); Percent CD4 Cells 25 % (30-61); Percent CD8 Cells 65 % (12-42)
[2024-02-12 15:18] LABS: HIV RNA PCR Qn Copies 304 copies/mL (NOT DETECTED); HIV RNA PCR Qn Log Copies 2.48 (NOT DETECTED)
[2024-02-13 10:58] LABS: TS Negative Control Passed; TS Panel A 0; TS Panel B 0; TS Positive Control Passed; TSpotTB Negative (Negative)
== END 2024-02-10 09:53 | disposition home or self-care (01) ==
LOC: HO.HHCL 09:52
PROVIDERS: Visit Provider Internal Medicine
DX: B20 Human immunodeficiency virus [HIV] disease (principal)
CPT/HCPCS: 36415; 80053; 80061; 85025; 86359; 86360; 86481; 86780; 86803; 87536

== ENCOUNTER 2024-08-08 16:20 | Outpatient (REF) | payer MEDICAID, SELFPAY ==
[2024-08-08 18:16] LABS: MANUAL DIFF FLAG NO
[2024-08-08 18:36] LABS: Basophils Percent Auto 0.4 % (0-2); Eosinophils Absolute Auto 0.1 X10*3/uL (0.0-0.4); Hematocrit 42.2 % (37.0-47.0); Hemoglobin 14.3 g/dl (12.0-16.0); Imm Gran Abs Auto 0.02 X10*3/uL (0.00-0.03); Imm Gran Pct Auto 0.3 % (0.0-0.4); Lymphocytes Absolute Auto 4.1 X10*3/uL (1.2-4.9); Lymphocytes Percent Auto 53.1 % (20-40); Mean Corpuscular HGB Conc 33.9 g/dl (31.0-35.0); Mean Corpuscular Hemoglobin 30.7 pg (27.0-33.0); Mean Corpuscular Volume 90.6 fL (80.0-98.0); Mean Platelet Volume 13.5 fL (9.4-12.3); Monocytes Absolute Auto 0.5 X10*3/uL (0.1-1.2); Monocytes Percent Auto 5.8 % (2-11); Neutrophils Absolute Auto 3.1 x10*3/uL (2.0-8.3); Neutrophils Percent Auto 39.4 % (45-73); Platelet Count 202 X10*3/uL (160-400); Red Blood Count 4.66 X10*6/uL (4.20-5.50); Red Cell Distribution Width 13.9 % (11.0-16.0); White Blood Count 7.8 X10*3/uL (4.8-10.8)
[2024-08-08 18:41] LABS: Alanine Aminotransferase 30 U/L (0-31); Albumin Level 4.6 g/dL (3.5-5.0); Alkaline Phosphatase 88 U/L (39-117); Anion Gap 13 (12-20); Aspartate Amino Transferase 19 U/L (5-31); Bilirubin Total 0.4 mg/dL (0.0-1.0); Blood Urea Nitrogen 7 mg/dL (9-16); Calcium 9.5 mg/dL (8.4-10.2); Carbon Dioxide 24 mmol/L (22-29); Chloride 107 mmol/L (96-108); Estimated Glomerular Filt Rate > 60; Glucose Random 94 mg/dL (60-115); Potassium 3.7 mmol/L (3.3-5.1); Sodium 140 mmol/L (135-145); Total Protein 7.9 g/dL (6.5-8.0)
[2024-08-08 18:58] LABS: TSH reflex Free T4 1.89 uIU/mL (0.32-4.0)
[2024-08-08 19:00] LABS: Erythrocyte Sedimentation Rate 7 MM/HR (0-20)
[2024-08-08 19:10] LABS: Folate 9.5 ng/mL (> or = 4.0); Vitamin B12 346 pg/mL (200-900)
== END 2024-08-08 16:21 | disposition home or self-care (01) ==
LOC: HO.HHCL 16:20
PROVIDERS: Visit Provider General Practice
DX: R51.9 Headache, unspecified (principal)
CPT/HCPCS: 36415; 80053; 82607; 82746; 84443; 85025; 85652

== ENCOUNTER 2024-09-05 10:22 | Outpatient (REF) | payer MEDICAID, SELFPAY ==
[2024-09-05 12:11] LABS: MANUAL DIFF FLAG NO
[2024-09-05 12:27] LABS: Estimated Average Glucose 105 mg/dL; Hemoglobin A1C 124.6558 umol/L; Hemoglobin A1c % 5.3 % (<6.0); Total Hemoglobin (HGBA1C) 3630.5179 umol/L
[2024-09-05 12:50] LABS: Alanine Aminotransferase 29 U/L (0-31); Albumin Level 4.4 g/dL (3.5-5.0); Alkaline Phosphatase 88 U/L (39-117); Anion Gap 11 (12-20); Aspartate Amino Transferase 18 U/L (5-31); Bilirubin Total 0.5 mg/dL (0.0-1.0); Blood Urea Nitrogen 9 mg/dL (9-16); Calcium 9.4 mg/dL (8.4-10.2); Carbon Dioxide 26 mmol/L (22-29); Chloride 106 mmol/L (96-108); Estimated Glomerular Filt Rate 58; Glucose Random 120 mg/dL (60-115); Potassium 3.4 mmol/L (3.3-5.1); Sodium 140 mmol/L (135-145); Total Protein 7.4 g/dL (6.5-8.0)
[2024-09-05 13:00] LABS: Hepatitis A Antibody IgG REACTIVE (Nonreactive); ~Hepatitis A Antibody IgG 12.45 S/CO (0.00-0.99)
[2024-09-05 13:02] LABS: HBS Num1 16.92 mIU/mL (0-7.99); HBsAGNum1 0.32 S/CO (0.00-0.99); Hepatitis B Core Antibody Nonreactive (Nonreactive); Hepatitis B Surface Antigen Negative (Negative); ~Hepatitis B Surface Antibody REACTIVE (Nonreactive)
[2024-09-05 15:31] LABS: Basophils Percent Auto 0.4 % (0-2); Eosinophils Absolute Auto 0.1 X10*3/uL (0.0-0.4); Eosinophils Percent Auto 1.1 % (0-4); Hematocrit 43.5 % (37.0-47.0); Hemoglobin 14.4 g/dl (12.0-16.0); Imm Gran Abs Auto 0.01 X10*3/uL (0.00-0.03); Imm Gran Pct Auto 0.1 % (0.0-0.4); Lymphocytes Absolute Auto 3.5 X10*3/uL (1.2-4.9); Lymphocytes Percent Auto 48.9 % (20-40); Mean Corpuscular HGB Conc 33.1 g/dl (31.0-35.0); Mean Corpuscular Hemoglobin 30.6 pg (27.0-33.0); Mean Corpuscular Volume 92.6 fL (80.0-98.0); Mean Platelet Volume 12.9 fL (9.4-12.3); Monocytes Absolute Auto 0.5 X10*3/uL (0.1-1.2); Monocytes Percent Auto 6.3 % (2-11); Neutrophils Absolute Auto 3.1 x10*3/uL (2.0-8.3); Neutrophils Percent Auto 43.2 % (45-73); Platelet Count 211 X10*3/uL (160-400); Red Cell Distribution Width 13.8 % (11.0-16.0); White Blood Count 7.1 X10*3/uL (4.8-10.8)
[2024-09-06 13:04] LABS: Toxoplasma IgM Antibody <8.00 AU/mL
[2024-09-07 15:59] LABS: HIV RNA PCR Qn Copies <20 DETECTED copies/mL (NOT DETECTED); HIV RNA PCR Qn Log Copies <1.30 DETECTED (NOT DETECTED)
== END 2024-09-05 10:23 | disposition home or self-care (01) ==
LOC: HO.HHCL 10:22
PROVIDERS: Visit Provider Internal Medicine
DX: Z21 Asymptomatic human immunodeficiency virus [HIV] infection status (principal)
CPT/HCPCS: 36415; 80053; 83036; 85025; 86704; 86706; 86708; 86735; 86762; 86765; 86777; 86778; 86787; 87340; 87536

== ENCOUNTER 2024-10-04 09:45 | Outpatient (REF) | payer MEDICAID, SELFPAY ==
--- NOTE | ~2024-10-04 | MM_ITS ---
EXAMINATION: MM SCREENING DIGITAL BREAST TOMOSYNTHESIS, BILATERAL CLINICAL INFORMATION: Screening. Asymptomatic. Left mastectomy. COMPARISON: Mammography: This study is compared with prior exams dating back to TECHNIQUE: Digital breast tomosynthesis is performed in both the craniocaudal and mediolateral oblique views along with computer-aided detection (CAD). Synthesized 2D images are generated from the tomosynthesis. FINDINGS: The breasts are heterogeneously dense, which may obscure small masses (ACR BI-RADS breast composition Category c). Marker clip. There are no significant masses, abnormal calcifications, or other abnormalities. MM/MM tomosynthesis screening RT IMPRESSION: No mammographic evidence of malignancy. ASSESSMENT: BI-RADS BI-RADS 2 - Benign Findings RECOMMENDATION: Routine annual mammography screening. 1 year F/U This examination should not preclude the clinical evaluation of a suspicious palpable abnormality. This patient's information was entered into a reminder system with a target due date for their next mammogram. Electronically signed by: Skyla Taylor DO 10/12/2024 08:17 AM [place]
== END 2024-10-04 09:46 | disposition home or self-care (01) ==
LOC: HO.MAMMO 09:45
PROVIDERS: PCP General Practice; Visit Provider General Practice
DX: Z12.31 Encounter for screening mammogram for malignant neoplasm of breast (principal)
CPT/HCPCS: 77063; 77067

== ENCOUNTER → 2024-10-04 10:00 | Outpatient (BNV) | payer MEDICAID, SELFPAY | PROVIDERS: PCP General Practice; Visit Provider Internal Medicine | DX: Z12.31 Encounter for screening mammogram for malignant neoplasm of breast (principal) | CPT/HCPCS: 77063; 77067 ==

== ENCOUNTER 2025-02-13 02:55 | Inpatient (IN) | payer MEDICAID, SELFPAY ==
[2025-02-13] VITALS (11 sets, daily range): BP systolic 118–148; BP diastolic 51–87; PULSE 79–99; RESP 16–20; TEMP 36.6–36.8; O2SAT 92–99; BMI 32.2
--- NOTE | ~2025-02-13 | CT_ITS ---
CLINICAL HISTORY: fall, loc, head strike CT cervical spine without contrast Comparison: None Findings: Mild motion artifact present. The visualized portions of the bilateral lung apices appear clear. Normal vertebral body alignment. No acute fractures or dislocations. Minimal degenerative endplate changes are visualized at the cervical spine. Multilevel bilateral degenerative facet arthropathy also present at the cervical spine. Impression: 1. No acute fracture or dislocation injury identified at the cervical spine. This document has been electronically signed by: Remington Alex MD on 02/13/2025 04:06:22
--- NOTE | ~2025-02-13 | CT_ITS ---
CLINICAL HISTORY: fall, LOC, head strike CT head without contrast Comparison: None Findings: No intracranial mass, midline shift, hydrocephalus, or acute hemorrhage. Minimal mucosal thickening identified within the ethmoid air cells. The bilateral mastoid air cells appear clear. No acute skull fracture. Mild frontal scalp swelling identified anteriorly near the midline. Impression: 1. No acute intracranial abnormality. No acute intracranial hemorrhage. 2. Mild frontal scalp swelling present anteriorly near the midline. No acute calvarial fracture. This document has been electronically signed by: Remington Alex MD on 02/13/2025 04:03:19
--- NOTE | ~2025-02-13 | MR_ITS ---
EXAMINATION: MR BRAIN WITHOUT CONTRAST CLINICAL INFORMATION: Concussion with LOC, abnormal neurological exam, intractable vertigo. COMPARISON: CT head dated earlier same day. No prior MRI. TECHNIQUE: MRI of the brain was obtained using routine sequences without contrast. Examination performed on a Siemens 1.5 Jenniefr high-field scanner. FINDINGS: There is no diffusion restriction. There is no intracranial hemorrhage, acute infarction, mass effect, or edema. Ventricles, sulci, and cisterns are normal in size and configuration for patient age. No shift of midline. No abnormal hemosiderin deposition is identified. No evidence of diffuse axonal injury. There are a few scattered punctate foci of white matter T2 hyperintensity in the periventricular, subcortical, and hemispheric deep white matter, nonspecific. Midline structures appear normally formed. The pituitary gland appears normal. Posterior fossa structures appear normal. Cerebellar tonsils are appropriately located. Major flow voids are preserved within the skull base. The globes and orbital contents demonstrate no abnormalities. Paranasal sinuses are clear bilaterally. Nasal septum is midline without spur. The mastoids and tympanic cavities are normally aerated. Extracranial soft tissues demonstrate a small 6 mm frontal subgaleal scalp hematoma. No suspicious bone marrow changes are evident. Mild hyperostosis frontalis. Atlantoaxial joint is normal. MR/MR head/brain wo con IMPRESSION: 1. No evidence of intracranial hemorrhage, acute infarction, mass effect, or edema. 2. No evidence of diffuse axonal injury. 3. A few scattered foci of T2 signal hyperintensity in the hemispheric deep white matter, nonspecific but statistically most likely on the basis of mild small vessel ischemic changes. 4. Small 6 mm midline frontal scalp subgaleal hematoma. Electronically signed by: Justin Quinones MD 02/13/2025 02:07 PM EDT
[2025-02-13 03:25] LABS: Basophils Percent Auto 0.3 % (0-2); Eosinophils Absolute Auto 0.1 X10*3/uL (0.0-0.4); Eosinophils Percent Auto 0.7 % (0-4); Imm Gran Abs Auto 0.02 X10*3/uL (0.00-0.03); Imm Gran Pct Auto 0.1 % (0.0-0.4); MANUAL DIFF FLAG SCAN; Mean Corpuscular HGB Conc 34.9 g/dl (31.0-35.0); Mean Corpuscular Hemoglobin 31.1 pg (27.0-33.0); Mean Platelet Volume 12.6 fL (9.4-12.3); Monocytes Absolute Auto 0.8 X10*3/uL (0.1-1.2); Monocytes Percent Auto 5.5 % (2-11); Neutrophils Absolute Auto 4.4 x10*3/uL (2.0-8.3); Neutrophils Percent Auto 30.4 % (45-73); Platelet Count 244 X10*3/uL (160-400); Red Blood Count 4.83 X10*6/uL (4.20-5.50); Red Cell Distribution Width 13.6 % (11.0-16.0); SCAN SMEAR FLAG 1; White Blood Count 14.4 X10*3/uL (4.8-10.8)
[2025-02-13 03:39] LABS: Alanine Aminotransferase 43 U/L (0-31); Albumin Level 4.8 g/dL (3.5-5.0); Alkaline Phosphatase 97 U/L (39-117); Anion Gap 16 (12-20); Aspartate Amino Transferase 37 U/L (5-31); Bilirubin Total 0.2 mg/dL (0.0-1.0); Blood Urea Nitrogen 10 mg/dL (9-16); Calcium 9.3 mg/dL (8.4-10.2); Carbon Dioxide 20 mmol/L (22-29); Chloride 111 mmol/L (96-108); Creatinine Clr Calc Pharmacy 66.6; Estimated Glomerular Filt Rate 55; Ethanol 211 mg/dL; Glucose Random 106 mg/dL (60-115); Potassium 3.7 mmol/L (3.3-5.1); Sodium 143 mmol/L (135-145); Total Protein 8.1 g/dL (6.5-8.0)
[2025-02-13 03:47] LABS: Troponin-I High Sensitivity < 2.7 ng/L (<3.5-17.0)
[2025-02-13 03:53] LABS: Lymphocytes Absolute Auto 9.1 X10*3/uL (1.2-4.9); SLIDE REVIEW VERIFIED
[2025-02-13] MEDS: ondansetron HCL 4 MG/2 ML VIAL IVPUSH ×4 (04:41→22:18)
--- NOTE | 2025-02-13 07:41 | ED_ITS ---
HPI - Fall General Chief Complaint: Fall Stated Complaint: fall Time Seen by Provider: 02/13/25 04:38 Source: patient Mode of arrival: EMS Limitations: no limitations History of Present Illness ED Provider: Dr. Geoffrey Can HPI Narrative: 54-year-old female with a history of GERD, HIV disease, depression, asthma, who presents emergency department for evaluation of injuries from fall. Patient states she was drinking alcohol last night. She states that she was in her inside hallway walking upstairs when she lost her balance and fell forward striking her head. Patient reports loss of consciousness. She also believes that she was struck the back of her head. She was currently complaining of headache, pain in her forehead and neck. She states that she has moderate to severe pain. She was also complaining of lightheadedness and dizziness which she describes as a room spinning sensation. Patient was also had nausea and had several episodes of vomiting while she has been here in the emergency department. Related Data Home Medications ?Medication ?Instructions ?Recorded ?Confirmed albuterol sulfate 2.5 mg/3 mL 1 amp inhalation Q6H PRN Wheezing 02/07/21 03/30/24 (0.083 %) solution for nebulization albuterol sulfate 90 mcg/actuation 2 puff inhalation Q4H PRN Wheezing 02/07/21 03/30/24 aerosol inhaler (ProAir HFA) cetirizine 10 mg tablet 1 tab PO BEDTIME 02/07/21 03/30/24 clonidine HCl 0.1 mg tablet 0.2 mg PO BEDTIME 02/07/21 03/30/24 dolutegravir 50 mg tablet (Tivicay) 1 tab PO DAILY 02/07/21 03/30/24 emtricitabine 200 mg-tenofovir 1 tab PO DAILY 02/07/21 03/30/24 alafenamide fumarate 25 mg tablet (Descovy) lorazepam 0.5 mg tablet 1 tab PO BEDTIME PRN anxiety 02/07/21 03/30/24 pantoprazole 40 mg tablet,delayed 1 tab PO QAM 02/07/21 03/30/24 release zolpidem 10 mg tablet 1 tab PO BEDTIME PRN Insomnia 02/07/21 03/30/24 docusate sodium 100 mg capsule 100 mg PO BEDTIME 12/17/21 03/30/24 montelukast 10 mg tablet 10 mg PO BEDTIME 12/17/21 03/30/24 polyethylene glycol 3350 17 17 g PO DAILY PRN constipation 12/17/21 03/30/24 gram/dose oral powder Previous Rx's ?Medication ?Instructions ?Recorded prochlorperazine maleate 10 mg 10 mg PO Q6H PRN Nausea #30 tabs 04/08/21 tablet (Compazine) Wig #1 ea 05/08/21 mastectomy bra (bra, mastectomy) #1 ea 05/08/21 gabapentin 600 mg tablet 600 mg PO BID #60 tabs 10/18/21 duloxetine 30 mg capsule,delayed 60 mg (2 x 30 mg) PO DAILY #60 caps 08/25/23 release (Cymbalta) vitamin B complex-folic acid 0.4 1 tab PO BEDTIME #90 tabs 08/15/24 mg tablet (B Complex 1 (with folic acid)) acetaminophen 500 mg tablet 1,000 mg (2 x 500 mg) PO Q6H PRN 02/13/25 (Tylenol Extra Strength) fever or pain #20 tabs ibuprofen 400 mg tablet 400 mg PO TID PRN fever or pain 02/13/25 #30 tabs meclizine 25 mg tablet (Dramamine 25 mg PO TID PRN dizziness #20 tabs 02/13/25 Less Drowsy) ondansetron 4 mg disintegrating 4 mg PO Q6-8H PRN nausea and 02/13/25 tablet vomiting #14 tabs Allergies Allergy/AdvReac Type Severity Reaction Status Date / Time codeine [Codeine] Allergy Mild RASH Verified 02/13/25 03:03 Review of Systems 2 Review of Systems: Yes all other systems are reviewed and are negative [facility] Past Medical History [facility] Narrative: Social history: The patient denies tobacco use. She does drink alcohol and was drinking last night. She denies drug use. Medical History (Updated 02/13/25 @ 08:05 by Geoffrey Can MD) GERD (gastroesophageal reflux disease) HIV (human immunodeficiency virus infection) Depression Asthma Surgical History History of left breast implant Hx of left mastectomy History of lumpectomy of left breast History of excision of mass History of hysterectomy Family History Family History Maternal Uncle Leukemia Sister Melanoma Mother S/P triple vessel bypass Heart disease Alzheimer disease Daughter Asthma Social History Social History Household Members: None Housing: Apartment Are you a primary acute care registered nurse to a significant other at home: No Do you presently have visiting nurse or other home services: No Alcohol intake: former Patient Tobacco Use Status: Former Tobacco user Advance Directives: No Advance Directives Information Provided: Yes service: No Current occupational status: unemployed Physical Exam 2 Vital Signs: Vital Signs: Last Vital Signs Temp 98.2 F 02/13/25 09:41 Pulse 99 02/13/25 09:41 Resp 18 02/13/25 09:41 BP 128/73 02/13/25 09:41 Pulse Ox 93 02/13/25 09:41 O2 Del Method Room Air 02/13/25 09:41 BMI result Body Mass Index 32.2 Vital signs were normal Exam: General: Awake, alert, in distress secondary to head injury Head: Normocephalic, atraumatic, 3 cm hematoma to the patient's forehead, tender to palpation, no tenderness palpation over her orbits or zygomatic arches. Patient does have an abrasion to her face. EENT: PERRL, Lids normal, sclera normal, conjunctiva normal, nose normal , ears normal, throat without erythema or exudates Neck: Tenderness palpation of her trapezius muscles bilaterally and her cervical spine with no point tenderness Lung: breath sounds symmetric, no wheezing, rales or rhonchi Chest: symmetric movement, nontender Heart: regular rate and rhythm, normal S1, S2 no murmurs or rubs Abdomen: soft, non-tender, nondistended, normal bowel sounds Back: no vertebral tenderness, no CVAT Extremities: no deformities, moves all extremities symmetrically Neuro: Awake, alert, oriented, normal speech, cranial nerves intact, moves all extremities symmetrically Psych: Pleasant, cooperative Medications Administered Discontinued Medications Generic Name Dose Route Start Last Admin Trade Name Freq PRN Reason Stop Dose Admin Diphtheria/Tetanus/Acell Pertussis 0.5 ml 02/13/25 07:57 02/13/25 08:22 Diphth,Pertus(Acell),Tet Adult 0.5 Ml Syringe IM 02/13/25 07:58 0.5 ml .ONCE ONE Administration Sodium Chloride 1,000 mls @ 999 mls/hr 02/13/25 08:15 02/13/25 09:33 Ns IV 02/13/25 09:15 Infused .Q1H1M STA Infusion Ketorolac Tromethamine 15 mg 02/13/25 07:57 02/13/25 08:21 Ketorolac Tromethamine 15 Mg/Ml Vial IVPUSH 02/13/25 07:58 15 mg ONCE STA Administration Meclizine HCl 25 mg 02/13/25 07:57 02/13/25 08:07 Meclizine Hcl 25 Mg Tablet PO 02/13/25 07:58 25 mg ONCE STA Administration Morphine Sulfate 4 mg 02/13/25 07:57 02/13/25 08:08 Morphine Sulfate 4 Mg/Ml Cartridge IVPUSH 02/13/25 07:58 4 mg ONCE STA Administration Protocol Morphine Sulfate 4 mg 02/13/25 09:02 02/13/25 09:38 Morphine Sulfate 4 Mg/Ml Cartridge IVPUSH 02/13/25 09:03 4 mg ONCE STA Administration Protocol Ondansetron HCl 4 mg 02/13/25 04:38 02/13/25 04:41 Ondansetron Hcl 4 Mg/2 Ml Vial IVPUSH 02/13/25 04:39 4 mg ONCE ONE Administration Ondansetron HCl 4 mg 02/13/25 07:57 02/13/25 08:21 Ondansetron Hcl 4 Mg/2 Ml Vial IVPUSH 02/13/25 07:58 4 mg ONCE ONE Administration Ondansetron HCl 4 mg 02/13/25 09:02 02/13/25 09:38 Ondansetron Hcl 4 Mg/2 Ml Vial IVPUSH 02/13/25 09:03 4 mg ONCE ONE Administration Medical Decision Making Medical Decision Making MDM Narrative: 54-year-old female with a history of GERD, HIV disease, depression, asthma, who presents emergency department for evaluation of fall, patient was walking up her hallway stairs, lost her balance, struck her head, lost consciousness. Patient was drinking alcohol in her ETOH was 211. Patient complained of headache, neck pain, dizziness, nausea and vomiting. Physical exam revealed a 3 cm hematoma to her forehead which was tender to palpation, tenderness palpation of her trapezius muscles bilaterally with diffuse tenderness palpation of her cervical spine with no localizing point tenderness. Differential diagnosis: ?Includes but is not limited to closed head injury, skull fracture, intracranial bleed, concussion with loss of consciousness, alcohol intoxication, anemia, electrolyte abnormalities Course: 08:37 My interpretation patient's laboratory evaluation is as follows: WBC elevated 14,400. Elevated AST and ALT 37 and 43. Elevated ethanol level 211. CT scan of the patient's head and cervical spine revealed no acute fractures, intracranial bleed. Patient was presentation and symptoms are consistent with closed head injury with concussion and loss of consciousness. Patient was treated with morphine 4 mg IV, Toradol 15 mg IV and Zofran 4 mg IV. I also ordered a L of normal saline IV x1. Patient was given meclizine 25 mg orally but shortly after getting in his medications she vomited. The patient then became tachycardic and her nurse noted that the patient's heart rate on the monitor was greater than 180 beats per minute. By the time the EKG was done the patient was in a sinus tachycardia with a rate of 105. 09:40 Patient states that her headache improved from 10/10 to 5/10 however she still is having significant dizziness and nausea. The patient was given morphine 4 mg IV and Zofran 4 mg IV. At this time, patient was having significant vertigo secondary to her concussion and I do not think that the patient can be discharged home. I did discuss the patient's presentation with the covering hospitalist, Dr. Rainey and the patient will be admitted to the hospitalist service for further treatment. Admission/Observation Consideration of admission/observation: Escalation of care including admission/observation considered (Yes) Consult Healthcare Provider Management of the patient was discussed with: Hospitalist Lab Data [facility] Lab Attestation statement: I reviewed the patient's lab results. 02/13/25 03:19 02/13/25 03:19 Labs: Lab Results 02/13/25 Range/Units 03:19 WBC 14.4 H (4.8-10.8) X10*3/uL RBC 4.83 (4.20-5.50) X10*6/uL Hgb 15.0 (12.0-16.0) g/dl Hct 43.0 (37.0-47.0) % MCV 89.0 (80.0-98.0) fL MCH 31.1 (27.0-33.0) pg MCHC 34.9 (31.0-35.0) g/dl RDW 13.6 (11.0-16.0) % Plt Count 244 (160-400) X10*3/uL MPV 12.6 H (9.4-12.3) fL Immature Gran % (Auto) 0.1 (0.0-0.4) % Neut % (Auto) 30.4 L (45-73) % Lymph % (Auto) 63.0 H (20-40) % Crane % (Auto) 5.5 (2-11) % Eos % (Auto) 0.7 (0-4) % Baso % (Auto) 0.3 (0-2) % Lymph # (Auto) 9.1 H (1.2-4.9) X10*3/uL Crane # (Auto) 0.8 (0.1-1.2) X10*3/uL Eos # (Auto) 0.1 (0.0-0.4) X10*3/uL Baso # (Auto) 0.0 (0.0-0.2) X10*3/uL Abs Immat Gran (auto) 0.02 (0.00-0.03) X10*3/uL Absolute Neuts (auto) 4.4 (2.0-8.3) x10*3/uL Absolute Nucleated RBC 0.000 (0.0-0.012) X10*3/uL Nucleated RBC % (auto) 0.0 (0.0-0.2) /100WBC Smear Tech's Comments VERIFIED Hold Blue Top SEE NOTE Sodium 143 (135-145) mmol/L Potassium 3.7 (3.3-5.1) mmol/L Chloride 111 H (96-108) mmol/L Carbon Dioxide 20 L (22-29) mmol/L Anion Gap 16 (12-20) BUN 10 (9-16) mg/dL Creatinine 1.03 (0.5-1.4) mg/dL Estim Creat Clear Calc 66.6 Estimated GFR 55 Random Glucose 106 (60-115) mg/dL Calcium 9.3 (8.4-10.2) mg/dL Total Bilirubin 0.2 (0.0-1.0) mg/dL AST 37 H (5-31) U/L ALT 43 H (0-31) U/L Alkaline Phosphatase 97 (39-117) U/L Troponin I High Sens < 2.7 (<3.5-17.0) ng/L Total Protein 8.1 H (6.5-8.0) g/dL Albumin 4.8 (3.5-5.0) g/dL Ethyl Alcohol 211 mg/dL Independent Interpretation I performed an independent interpretation of an: EKG Interpretation: My independent interpretation patient's 12 EKG done on 02/13/2025 at at 08:18 hours is as follows: Sinus tachycardia with a rate of 105, normal OH interval, QRS duration QTC interval, Q-wave in lead 3 and AVF, no ST segment elevation, no ST segment depression, nonspecific flattening of the T-waves, poor R-wave progression. Compared to an EKG done on 11/18/2022 at 20:47 hours, patient's Q- waves in 3 and AVF are old, poor R-wave progression is old as well. No significant change between these 2 EKGs. Radiology Impression Discussion of test interpretation with radiology: I have reviewed the radiologist's reading. Radiologist Impression: CT head without contrast Comparison: None Findings: No intracranial mass, midline shift, hydrocephalus, or acute hemorrhage. Minimal mucosal thickening identified within the ethmoid air cells. The bilateral mastoid air cells appear clear. No acute skull fracture. Mild frontal scalp swelling identified anteriorly near the midline. Impression: 1. No acute intracranial abnormality. No acute intracranial hemorrhage. 2. Mild frontal scalp swelling present anteriorly near the midline. No acute calvarial fracture. This document has been electronically signed by: Remington Alex MD on 02/13/2025 04:03:19 CT cervical spine without contrast Comparison: None Findings: Mild motion artifact present. The visualized portions of the bilateral lung apices appear clear. Normal vertebral body alignment. No acute fractures or dislocations. Minimal degenerative endplate changes are visualized at the cervical spine. Multilevel bilateral degenerative facet arthropathy also present at the cervical spine. Impression: 1. No acute fracture or dislocation injury identified at the cervical spine. This document has been electronically signed by: Remington Alex MD on 02/13/2025 04:06:22 Chronic Conditions Patient?s care impacted by: Other (HIV disease) Critical Care Time Critical Care Time Critical Care Time: Yes Total Critical Care Time: 45 Attestation: Critical Care: The patient was critically ill with a high probability of imminent or life threatening deterioration. I spent greater than 30 minutes of discontinuous time evaluating the patient,delivering critical care at the bedside, discussing and evaluating pertinent data with consultants. Critical care time does not include time spent performing separately billable procedures or teaching. Total time spent performing critical care was 45 minutes. Discharge Plan Discharge Patient Disposition: Admitted As Inpatient Additional Instructions: Your blood work was unremarkable except for an elevated alcohol level of 211. The CT scan of your head and neck did not reveal any skull fracture, bleeding in the brain, neck fracture. Your symptoms are consistent with a concussion. Take meclizine 25 mg pills, 1 pill 3 times a day for the next 3 days for dizziness then as needed for dizziness. ?This medication will make you sleepy. ?Do not drive or work while taking this medication. Take Zofran ODT 4 mg pills, 1 pill dissolved in your mouth every 8 hours as needed for nausea and vomiting. Take ibuprofen 400 mg pills, 1 pills every 6 hours as needed for pain or fever. Take Tylenol (acetaminophen) 500 mg pills, 2 pills every 6 hours as needed for pain or fever. Apply ice for 10-15 minutes 4 to 6 times a day to the bump (hematoma) on your forehead. Do this for the next 2 days to help reduce the swelling. You may develop 2 black eyes, black and blueness of your face or neck. This has part of the healing process from this hematoma and you do not need to come back to the emergency department if you notice increased black and blueness. Follow-up with your doctor in 2 days. Please return to the emergency department if your symptoms get worse or if you develop any symptoms that are concerning to you. Print Language: Peruvian
[2025-02-13] MEDS: Meclizine HCl 25 MG TABLET PO ×3 (08:07→21:09)
[2025-02-13] MEDS: Morphine Sulfate 4 MG/ML CARTRIDGE IVPUSH ×2 (08:08→09:38)
--- NOTE | 2025-02-13 08:15 | ECG_ITS ---
Test Reason : tachy Blood Pressure : */* mmHG Vent. Rate : 105 BPM Atrial Rate : 105 BPM P-R Int : 162 ms QRS Dur : 86 ms QT Int : 338 ms P-R-T Axes : 13 -11 46 degrees QTcB Int : 446 ms Sinus tachycardia Minimal voltage criteria for LVH, may be normal variant ( R in aVL ) Inferior infarct , age undetermined Cannot rule out Anterior infarct (cited on or before 18-Nov-2022) Abnormal ECG When compared with ECG of 18-Nov-2022 20:47, Vent. rate has increased by 43 bpm Nonspecific T wave abnormality has replaced inverted T waves in Inferior leads Nonspecific T wave abnormality now evident in Lateral leads Referred By: Geoffrey Can Electronically Signed By: CLIFTON TOVAR
[2025-02-13] MEDS: Ketorolac Tromethamine 15 MG/ML VIAL IVPUSH (08:21)
[2025-02-13] MEDS: Diphth,Pertus(ACell),Tet Adult 0.5 ML SYRINGE IM (08:22)
[2025-02-13] MEDS: 0.9 % Sodium Chloride 1,000 ML 999 ML IV (08:24)
--- NOTE | 2025-02-13 08:35 | PC.NURSE ---
Pt endorsing head/facial pain and dizziness. MD Can at bedside, pt medicated per JAN. While medicating, pt began vomiting approx 200 mls dark brown emesis. HR increased to 170s-180s- denied cp/sob during episode. EKG obtained and signed by MD. Pt HR decreased to 100s-110s after vomiting. A/ox3, speaking in full sentences, speech clear/appropriate, respirations even and unlabored, no increased wob/sob noted, HR 100s-110s on personnel monitor, sinus tach. IV Fluids infusing per JAN, vitals updated in worklist, family at bedside with patient, call herrera within reach, all needs met at this time.
--- NOTE | 2025-02-13 11:48 | P.HPHOSP_ITS ---
History of Present Illness Date of Service: 02/13/25 Attending physician on admission: Sy Neal Chief Complaint: fall, loc, vertigo, n/v 54-year-old male with history of HIV on Tivicay and Descovy, GERD, mood disorder, unspecified asthma, history of left-sided breast cancer s/p left mastectomy and chemotherapy, with chemotherapy-induced neuropathy presented to the ED early this morning for evaluation of injuries sustained from a fall. The patient reports she was at a green party last night and drank an unknown but significant amount of beer. While leaving the green party, she states the stairwell was dark and she lost her footing falling backwards down 7 stairs striking the back of her head with loss of consciousness which she feels lasted several sec the was unwitnessed. She was able to call her boyfriend who was able to assist her and bring her to the hospital. When he arrived to assist her, she had epistaxis and swelling of the mouth and forehead. On arrival, she was complaining of a headache as well as pain in the forehead and a posterior neck, reading this as moderate to severe. She was also complaining of intractable vertigo with nausea and vomiting. She reports that she experiences the vertigo at rest but it does worsen with head movements and position changes. She feels very unsteady when she stands and requires assist to the commode. She has had several episodes of vomiting while in the ED. she did receive several doses of morphine which did improve the neck pain and headache. She does have a history of vertigo but states this is only intermittent and responds well to meclizine. She is able to recall events and denies any confusion While in the ED, vital signs stable. There is a leukocytosis of 14.4. Renal function electrolyte levels normal except for CO2 of 20 hepatic function with elevated AST at 37, ALT at 43. Troponin undetectable. Ethyl alcohol level on arrival 211. Head CT negative for any acute intracranial abnormality or hemorrhage but does show mild frontal scalp swelling anteriorly consistent with a hematoma but no fracture. Cervical spine CT also negative for any acute osseous abnormality. In the ED, has received IV ketorolac, meclizine, ondansetron as well as several doses of morphine. Despite this, continues to experience nausea as well as vertigo. Review of Systems 2 Review of Systems: Yes all other systems are reviewed and are negative PMFSH Medical History GERD (gastroesophageal reflux disease) HIV (human immunodeficiency virus infection) Depression Asthma Family History Maternal Uncle Leukemia Sister Melanoma Mother S/P triple vessel bypass Heart disease Alzheimer disease Daughter Asthma Surgical History History of left breast implant Hx of left mastectomy History of lumpectomy of left breast History of excision of mass History of hysterectomy Social History Household Members: None Housing: Apartment Are you a primary pharmacist critical care to a significant other at home: No Do you presently have visiting nurse or other home services: No Alcohol intake: current Alcohol intake frequency: does not drink Alcohol type: beer Patient Tobacco Use Status: Former Tobacco user Smoked in Last 30 Days: No Use of substances other than those prescribed or required for medical reasons: No Advance Directives: No Advance Directives Information Provided: Yes Patient : No service: No Current occupational status: unemployed Meds Allergies Allergy/AdvReac Type Severity Reaction Status Date / Time codeine [Codeine] Allergy Mild RASH Verified 02/13/25 03:03 Home Medications ?Medication ?Instructions ?Recorded ?Confirmed ?Last Taken ?Type albuterol sulfate 2.5 mg/3 mL 1 amp inhalation Q6H PRN Wheezing 02/07/21 03/30/24 Unknown History (0.083 %) solution for nebulization cetirizine 10 mg tablet 1 tab PO BEDTIME 02/07/21 03/30/24 02/26/21 History clonidine HCl 0.1 mg tablet 0.2 mg PO BEDTIME 02/07/21 03/30/24 02/26/21 History dolutegravir 50 mg tablet (Tivicay) 1 tab PO DAILY 02/07/21 03/30/24 05/26/23 History emtricitabine 200 mg-tenofovir 1 tab PO DAILY 02/07/21 03/30/24 05/26/23 History alafenamide fumarate 25 mg tablet (Descovy) lorazepam 0.5 mg tablet 1 tab PO BEDTIME PRN anxiety 02/07/21 03/30/24 Unknown History pantoprazole 40 mg tablet,delayed 1 tab PO QAM 02/07/21 03/30/24 02/14/21 06:00 History release docusate sodium 100 mg capsule 100 mg PO BEDTIME 12/17/21 03/30/24 Unknown History montelukast 10 mg tablet 10 mg PO BEDTIME 12/17/21 03/30/24 Unknown History polyethylene glycol 3350 17 17 g PO DAILY PRN constipation 12/17/21 03/30/24 Unknown History gram/dose oral powder bictegravir 50 mg-emtricitabine 1 tab PO QAM 02/13/25 Unknown History 200 mg-tenofovir alafenam 25 mg tablet (Biktarvy) citalopram 20 mg tablet 30 mg PO BEDTIME 02/13/25 Unknown History gabapentin 600 mg tablet 1,200 mg PO TID 02/13/25 Unknown History mirtazapine 30 mg tablet 30 mg PO BEDTIME 02/13/25 Unknown History Physical Exam 2 Vital Signs and Narrative: Vital Signs: Last Vital Signs Temp 98.2 F 02/13/25 09:41 Pulse 99 02/13/25 09:41 Resp 18 02/13/25 09:41 BP 128/73 02/13/25 09:41 Pulse Ox 93 02/13/25 09:41 O2 Del Method Room Air 02/13/25 09:41 BMI result Body Mass Index 32.2 Constitutional - Awake and Alert, No apparent distress Eyes - PERRLA, EOMI Cardiovascular - S1S2, RRR, No edema Respiratory - Normal lung expansion, Normal respiratory effort, No respiratory distress, CTA bilaterally Gastrointestinal - NT / ND; +BS; No rebound or guarding Extremities - no calf tenderness bilaterally, no swelling Skin - Warm/Dry. Swelling of the lips and forehead with palpable hematoma Neurological - Alert & oriented x3, jerk nystagmus vertically and horizontally, CN otherwise WNL, visual ash in tact. No amnesia, able to recall events Results Labs 02/13/25 03:19 02/13/25 03:19 Labs: Laboratory Results - last 24 hr 02/13/25 03:19 MCV 89.0 MCH 31.1 MCHC 34.9 RDW 13.6 Plt Count 244 MPV 12.6 H Immature Gran % (Auto) 0.1 Neut % (Auto) 30.4 L Lymph % (Auto) 63.0 H [place] % (Auto) 5.5 Eos % (Auto) 0.7 Baso % (Auto) 0.3 Lymph # (Auto) 9.1 H [place] # (Auto) 0.8 Eos # (Auto) 0.1 Baso # (Auto) 0.0 Abs Immat Gran (auto) 0.02 Absolute Neuts (auto) 4.4 Absolute Nucleated RBC 0.000 Nucleated RBC % (auto) 0.0 Smear Tech's Comments VERIFIED Hold Blue Top SEE NOTE Anion Gap 16 Estim Creat Clear Calc 66.6 Estimated GFR 55 Random Glucose 106 Calcium 9.3 Total Bilirubin 0.2 AST 37 H ALT 43 H Alkaline Phosphatase 97 Total Protein 8.1 H Albumin 4.8 Ethyl Alcohol 211 Assessment and Plan (1) Closed head injury with concussion: Qualifiers: Encounter type: initial encounter Loss of consciousness presence/duration: without LOC Qualified Code(s): S06.0X0A - Concussion without loss of consciousness, initial encounter Status: Acute (2) Traumatic hematoma of forehead: Qualifiers: Encounter type: initial encounter Qualified Code(s): S00.83XA - Contusion of other part of head, initial encounter Status: Acute (3) Vertigo: Status: Acute (4) Abrasion of forehead: Qualifiers: Encounter type: initial encounter Qualified Code(s): S00.81XA - Abrasion of other part of head, initial encounter Status: Acute (5) Alcohol intoxication: Status: Acute Plan 54-year-old male with history of HIV on Tivicay and Descovy, GERD, mood disorder, unspecified asthma, history of left-sided breast cancer s/p left mastectomy and chemotherapy, with chemotherapy-induced neuropathy admitted for further management of intractable vertigo, n/v related to moderate concussion with LOC Moderate concussion LOC lasting several seconds (though was not witnessed) No amnesia, confusion Head CT negative for any acute intracranial abnormality but shows frontal hematoma. Head CT and cervical spine ct negative for acute osseous abnormality Given abn neuro exam and LOC, check MRI brain PT for harshil maneuver, though seems more central vertigo than peripheral Meclizine 25mg [place], scopolamine patch, Valium p.r.n. Neuro checks Neurology consult Forehead hematoma pain management prn cold compresses will reabsorb without other intervention Acute leukocytosis reactive due to inflammation/injury no sepsis HIV continue Tivicay and Descovy Follows with [facility] GERD PPI Unspecified asthma Continue Singulair, albuterol p.r.n. Mood disorder Continue home meds History of left-sided breast cancer with chemotherapy induced neuropathy Continue gabapentin Binge alcohol consumption Ethyl alcohol level on arrival 211 reports otherwise only occasional consumption Low risk for withdrawal Acute transaminitis due to alcohol use DVT prophylaxis- lovenox Full code Pt requires inpt stay at least 2 midnights due to intractable vertigo related to concussion with LOC and abnormal cranial nerve exam preventing safe ambulation requiring advanced imaging, neuro checks and expert consultation Quality Stroke Does the patient have a stroke diagnosis?: No VTE Prior VTE?: No VTE Risk Level:: Medical - moderate - high VTE Device Contraindication: Treatment Not Indicated VTE Drug Contraindication: N/A - Med Ordered
[2025-02-13] MEDS: Enoxaparin Sodium 40 MG/0.4 ML SYRINGE SUBCUT (12:08)
--- NOTE | 2025-02-13 12:50 | PC.NURSE ---
pt to MRI via transport with completed MRI worksheet
[2025-02-13] MEDS: Acetaminophen 325 MG TABLET 650 MG PO (13:33)
[2025-02-13] MEDS: Scopolamine 1.5 MG PATCH.TD.3 EAR-BEHIND (13:33)
[2025-02-13] MEDS: diazePAM 2 MG TABLET PO (13:33)
--- NOTE | 2025-02-13 15:04 | PHA.MEDREC ---
Addendum entered by Kenny Nava 02/13/25 15:10: reviewed Original Note: Pharmacy Consult ? Medication Reconciliation Pharmacy has completed the medication reconciliation. Spoke to patient through template layout worker service ([place]) to confirm med list. Patient and spouse are poor historians. They didn't know what medications patient takes and wouldn't know if I named the medications to them. Utilized claims and a list from [facility] pharmacy to confirm med list.
--- NOTE | 2025-02-13 15:31 | PM.NEUROCN ---
History of Present Illness Data of Consult Service Date: 02/13/25 Primary Care Provider: Uma Ortiz MD [facility] Reason for consult: Head injury 54 years old woman who came to hospital after she fell and hit her body and head on the floor. Apparently she had been drinking before that. He was complaining of pain in different areas of her body including had and knees. Brain MRI and cervical spine CT were done. There was no sign of any seizure. No double vision or loss of vision reported. Review of Systems Review of Systems: Has been drinking alcohol recently. [facility]LY [facility], [facility] Past Medical History Medical History GERD (gastroesophageal reflux disease) HIV (human immunodeficiency virus infection) Depression Asthma Family History Family History Maternal Uncle Leukemia Sister Melanoma Mother S/P triple vessel bypass Heart disease Alzheimer disease Daughter Asthma Surgical History Surgical History History of left breast implant Hx of left mastectomy History of lumpectomy of left breast History of excision of mass History of hysterectomy Social History Social History Household Members: None Housing: Apartment Are you a primary wound care rn to a significant other at home: No Do you presently have visiting nurse or other home services: No Alcohol intake: current Alcohol intake frequency: does not drink Alcohol type: beer Patient Tobacco Use Status: Former Tobacco user Smoked in Last 30 Days: No Use of substances other than those prescribed or required for medical reasons: No Advance Directives: No Advance Directives Information Provided: Yes Patient : No service: No Current occupational status: unemployed Meds Allergies Allergy/AdvReac Type Severity Reaction Status Date / Time codeine [Codeine] Allergy Mild RASH Verified 02/13/25 03:03 Active Medications: Current Medications Acetaminophen (Acetaminophen 325 Mg Tablet) 650 mg PO Q6H PRN PRN Reason: Pain, Mild 1-3,fever,headache Last Admin: 02/13/25 13:33 Dose: 650 mg Calcium Carbonate (Calcium Carbonate 750 Mg Tab.Chew) 750 mg PO Q4H PRN PRN Reason: Heartburn Diazepam (Diazepam 2 Mg Tablet) 2 mg PO TID PRN PRN Reason: Vertigo Last Admin: 02/13/25 13:33 Dose: 2 mg Enoxaparin Sodium (Enoxaparin Sodium 40 Mg/0.4 Ml Syringe) 40 mg SUBCUT Q24H [facility] Last Admin: 02/13/25 12:08 Dose: 40 mg Magnesium Hydroxide (Milk Of Magnesia 30 Ml Oral.Susp) 30 ml PO DAILY PRN PRN Reason: Constipation Meclizine HCl (Meclizine Hcl 25 Mg Tablet) 25 mg PO TID [facility] Melatonin (Melatonin 3 Mg Tablet) 6 mg PO BEDTIME PRN PRN Reason: Insomnia Ondansetron HCl (Ondansetron Hcl 4 Mg/2 Ml Vial) 4 mg IVPUSH Q8H PRN PRN Reason: Nausea and Vomiting Scopolamine (Scopolamine 1.5 Mg Patch.Td.3) 1.5 mg EAR-BEHIND Q72H [facility] Last Admin: 02/13/25 13:33 Dose: 1.5 mg Sodium Chloride (0.9 % Sodium Chloride Flush 3 Ml Syringe) 3 ml IVFLUSH QSHIFT [facility] Home Medications ?Medication ?Instructions ?Recorded ?Confirmed ?Last Taken ?Type albuterol sulfate 2.5 mg/3 mL 1 amp inhalation Q6H PRN Wheezing 02/07/21 02/13/25 Unknown History (0.083 %) solution for nebulization cetirizine 10 mg tablet 1 tab PO BEDTIME 02/07/21 02/13/25 02/26/21 History clonidine HCl 0.1 mg tablet 0.2 mg PO BEDTIME 02/07/21 02/13/25 02/26/21 History lorazepam 0.5 mg tablet 0.5 mg PO BEDTIME PRN anxiety 02/07/21 02/13/25 Unknown History pantoprazole 40 mg tablet,delayed 1 tab PO DAILY@0630 02/07/21 02/13/25 02/14/21 06:00 History release montelukast 10 mg tablet 10 mg PO BEDTIME 12/17/21 02/13/25 Unknown History acetaminophen 500 mg tablet 500 mg PO Q6H PRN mild pain 02/13/25 02/13/25 Unknown History albuterol sulfate 90 mcg/actuation 2 puff inhalation Q6H PRN wheezing 02/13/25 02/13/25 Unknown History aerosol inhaler (Ventolin HFA) bictegravir 50 mg-emtricitabine 1 tab PO QAM 02/13/25 02/13/25 Unknown History 200 mg-tenofovir alafenam 25 mg tablet (Biktarvy) citalopram 20 mg tablet 30 mg PO BEDTIME 02/13/25 02/13/25 Unknown History gabapentin 600 mg tablet 1,200 mg PO TID 02/13/25 02/13/25 Unknown History ibuprofen 400 mg tablet 400 mg PO TID PRN Fever Or Pain 02/13/25 02/13/25 Unknown History mirtazapine 30 mg tablet 30 mg PO BEDTIME 02/13/25 02/13/25 Unknown History ondansetron HCl 4 mg tablet 4 mg PO Q6-8H PRN nausea/vomiting 02/13/25 02/13/25 Unknown History Physical Exam Vital Signs: Vital Signs: Last Vital Signs Temp 98.2 F 02/13/25 09:41 Pulse 88 02/13/25 14:10 Resp 16 02/13/25 14:10 BP 140/59 H 02/13/25 14:10 Pulse Ox 97 02/13/25 14:10 O2 Del Method Room Air 02/13/25 14:10 BMI result Body Mass Index 32.2 Neuro: Other: She is alert and awake with normal spontaneity of speech fluency comprehension and distressed affect. Face is symmetrical. Ecchymosis is noted around the eyes. Extraocular muscles are intact. Visual ash are intact. There is no focal arm or leg weakness. Plantars are flexor. Results Labs 02/13/25 03:19 02/13/25 03:19 Labs: Short CBC 02/13/25 Range/Units 03:19 WBC 14.4 H (4.8-10.8) X10*3/uL Hgb 15.0 (12.0-16.0) g/dl Hct 43.0 (37.0-47.0) % Plt Count 244 (160-400) X10*3/uL BMP 02/13/25 03:19 Sodium 143 Potassium 3.7 Chloride 111 H Carbon Dioxide 20 L BUN 10 Creatinine 1.03 Calcium 9.3 Liver Function 02/13/25 Range/Units 03:19 Total Bilirubin 0.2 (0.0-1.0) mg/dL AST 37 H (5-31) U/L ALT 43 H (0-31) U/L Alkaline Phosphatase 97 (39-117) U/L Albumin 4.8 (3.5-5.0) g/dL Noncontrast MRI of brain did not reveal any intracranial significant finding. CTA of cervical spine did not reveal any fracture. Assessment and Plan (1) Postconcussion syndrome: Status: Acute Postconcussion syndrome with headache and dizziness. She is advised to be careful. Dizziness and pain of this type could take 2-3 weeks to get better sometime longer. There was no significant physical injury noted on her brain MRI or cervical spine CT. Conservative symptomatic treatment is recommended. Procedures Date of Service Date of Service: 02/13/25
[2025-02-13] MEDS: 0.9 % Sodium Chloride Flush 3 ML SYRINGE IVFLUSH (15:59)
--- NOTE | 2025-02-13 21:12 | PC.NURSE ---
pt to inpatient bed assignment via transport personnel now
[2025-02-13] MEDS: traMADoL HCL 50 MG TABLET 25 MG PO (23:06)
[2025-02-14] MEDS: 0.9 % Sodium Chloride Flush 3 ML SYRINGE IVFLUSH ×2 (00:07→08:16)
[2025-02-14 02:00] VITALS: BP 131/62; PULSE 83; RESP 16; TEMP 37.1; O2SAT 97
[2025-02-14 03:34] VITALS: BP 129/66; PULSE 84; RESP 16; TEMP 37.1; O2SAT 96
[2025-02-14] MEDS: Acetaminophen 325 MG TABLET 650 MG PO (04:27)
[2025-02-14 07:21] VITALS: BP 127/61; PULSE 77; RESP 14; TEMP 36.8; O2SAT 96
[2025-02-14 08:09] LABS: MANUAL DIFF FLAG NO
[2025-02-14] MEDS: Bictegrav/Emtricit/Tenofov Ala TABLET 1 TAB PO (08:15)
[2025-02-14] MEDS: Gabapentin 600 MG TABLET 1200 MG PO (08:15)
[2025-02-14] MEDS: Meclizine HCl 25 MG TABLET PO (08:15)
[2025-02-14 08:23] LABS: Basophils Percent Auto 0.2 % (0-2); Eosinophils Absolute Auto 0.1 X10*3/uL (0.0-0.4); Eosinophils Percent Auto 0.8 % (0-4); Hematocrit 37.5 % (37.0-47.0); Hemoglobin 13.1 g/dl (12.0-16.0); Imm Gran Abs Auto 0.03 X10*3/uL (0.00-0.03); Imm Gran Pct Auto 0.4 % (0.0-0.4); Lymphocytes Absolute Auto 3.3 X10*3/uL (1.2-4.9); Lymphocytes Percent Auto 39.6 % (20-40); Mean Corpuscular HGB Conc 34.9 g/dl (31.0-35.0); Mean Corpuscular Hemoglobin 31.3 pg (27.0-33.0); Mean Corpuscular Volume 89.7 fL (80.0-98.0); Mean Platelet Volume 12.5 fL (9.4-12.3); Monocytes Absolute Auto 0.8 X10*3/uL (0.1-1.2); Monocytes Percent Auto 9.1 % (2-11); Neutrophils Absolute Auto 4.2 x10*3/uL (2.0-8.3); Neutrophils Percent Auto 49.9 % (45-73); Platelet Count 177 X10*3/uL (160-400); Red Blood Count 4.18 X10*6/uL (4.20-5.50); White Blood Count 8.4 X10*3/uL (4.8-10.8)
[2025-02-14 08:40] LABS: Anion Gap 12 (12-20); Blood Urea Nitrogen 10 mg/dL (9-16); Calcium 8.7 mg/dL (8.4-10.2); Carbon Dioxide 22 mmol/L (22-29); Chloride 108 mmol/L (96-108); Estimated Glomerular Filt Rate > 60; Glucose Random 99 mg/dL (60-115); Potassium 3.3 mmol/L (3.3-5.1); Sodium 139 mmol/L (135-145)
--- NOTE | 2025-02-14 08:59 | MHC.CM.PN ---
CM met with Patient and her Boyfriend/Stu at bedside. Patient lives in an apartment with Stu and she was using no DME SALES PROGRAM COORDINATOR. Patient is S/P fall and will benefit from a PT Eval to assist with disposition; CM has initiated and will follow for dc planning. PCP is Dr. Uma Ortiz, Boyfriend to transport if dc'd to home, and completion of HCP was declined for now (appeared to be uncomfortable but explained that she was having a hot flash).
--- NOTE | 2025-02-14 09:53 | P.DS_ITS ---
DS: Providers Provider Date of Service: 02/14/25 Date of admission: 02/13/25 11:43 Date of discharge: 02/14/25 Primary care physician: Uma Ortiz MD Consults: 02/13/25 11:46 Consult to Neurology Routine Consulting Provider: [facility] Reason for consultation: concussion w/ LOC, intractable vertigo, jerk nystagmus all directions DS: Diagnosis Discharge Diagnosis (1) Postconcussion syndrome: Status: Acute DS: Summary Hospital Course Hospital Course: from initial hpi: 54-year-old male with history of HIV on Tivicay and Descovy, GERD, mood disorder , unspecified asthma, history of left-sided breast cancer s/p left mastectomy and chemotherapy, with chemotherapy-induced neuropathy presented to the ED early this morning for evaluation of injuries sustained from a fall. The patient reports she was at a alliance party last night and drank an unknown but significant amount of beer. While leaving the alliance party, she states the stairwell was dark and she lost her footing falling backwards down 7 stairs striking the back of her head with loss of consciousness which she feels lasted several sec the was unwitnessed. She was able to call her boyfriend who was able to assist her and bring her to the hospital. When he arrived to assist her, she had epistaxis and swelling of the mouth and forehead. On arrival, she was complaining of a headache as well as pain in the forehead and a posterior neck, reading this as moderate to severe. She was also complaining of intractable vertigo with nausea and vomiting. She reports that she experiences the vertigo at rest but it does worsen with head movements and position changes. She feels very unsteady when she stands and requires assist to the commode. She has had several episodes of vomiting while in the ED. she did receive several doses of morphine which did improve the neck pain and headache. She does have a history of vertigo but states this is only intermittent and responds well to meclizine. She is able to recall events and denies any confusion While in the ED, vital signs stable. There is a leukocytosis of 14.4. Renal function electrolyte levels normal except for CO2 of 20 hepatic function with elevated AST at 37, ALT at 43. Troponin undetectable. Ethyl alcohol level on arrival 211. Head CT negative for any acute intracranial abnormality or hemorrhage but does show mild frontal scalp swelling anteriorly consistent with a hematoma but no fracture. Cervical spine CT also negative for any acute osseous abnormality. In the ED, has received IV ketorolac, meclizine, ondansetron as well as several doses of morphine. Despite this, continues to experience nausea as well as vertigo. hospital course: Patient was admitted for postconcussion symptoms. MRI was negative for acute stroke, was seen by Neurology who recommended postconcussion treatment. We will be discharged home and can follow up with neurology as outpatient as needed. For HIV was continued on HAART therapy, for GERD continue PPI. For unspecified asthma continued on Singulair and albuterol. Patient is feeling better will be discharged home. Time Attestation Discharge Coordination Time (in mins): 32 Quality: Safe Use of Opioids Does Pt have an Active Cancer Diagnosis on the Problem List?: No Quality: Stroke Does the patient have a stroke diagnosis?: No Physical Exam Vital Signs: Vital Signs: Last Vital Signs Temp 98.2 F 02/14/25 07:21 Pulse 77 02/14/25 07:21 Resp 14 02/14/25 07:21 BP 127/61 02/14/25 07:21 Pulse Ox 96 02/14/25 07:21 O2 Del Method Room Air 02/14/25 07:21 BMI result Body Mass Index 32.2 Neuro: Other: She is alert and awake with normal spontaneity of speech fluency comprehension and distressed affect. Face is symmetrical. Ecchymosis is noted around the eyes. Extraocular muscles are intact. Visual ash are intact. There is no focal arm or leg weakness. Plantars are flexor. DS: Data Data Completed and Pending Completed studies during hospitalization [Text1]: Procedures Excision of Left Thorax Muscle, Open Approach (02/27/21) Resection of Left Axillary Lymphatic, Open Approach (02/27/21) Resection of Left Breast, Open Approach (02/27/21) Labs on day of discharge: Laboratory Results - last 24 hr 02/14/25 07:51 WBC 8.4 RBC 4.18 L Hgb 13.1 Hct 37.5 MCV 89.7 MCH 31.3 MCHC 34.9 RDW 14.0 Plt Count 177 D MPV 12.5 H Immature Gran % (Auto) 0.4 Neut % (Auto) 49.9 Lymph % (Auto) 39.6 [place] % (Auto) 9.1 Eos % (Auto) 0.8 Baso % (Auto) 0.2 Lymph # (Auto) 3.3 [place] # (Auto) 0.8 Eos # (Auto) 0.1 Baso # (Auto) 0.0 Abs Immat Gran (auto) 0.03 Absolute Neuts (auto) 4.2 Absolute Nucleated RBC 0.000 Nucleated RBC % (auto) 0.0 Sodium 139 Potassium 3.3 Chloride 108 Carbon Dioxide 22 Anion Gap 12 BUN 10 Creatinine 0.79 Estim Creat Clear Calc 87.0 Estimated GFR > 60 Random Glucose 99 Calcium 8.7 D Discharge Plan Discharge Anticipated Discharge Date/Time: 02/14/25 09:50 Patient Disposition: Home Health Service Discharge Diagnosis: concussion Referrals: Uma Ortiz MD [Primary Care Provider] - 1 Week Discharge Medications: Continued (DME) bra, mastectomy Crystals Qty: 1 0RF Rx Instructions: As Directed (DME) Wig Kit Qty: 1 0RF Rx Instructions: As Directed vitamin B complex-folic acid [B Complex 1 (with folic acid)] 0.4 mg tablet 1 tab PO BEDTIME Qty: 90 2RF clonidine HCl 0.1 mg tablet 0.2 mg PO BEDTIME albuterol sulfate 2.5 mg /3 mL (0.083 %) solution for nebulization 1 amp inhalation Q6H PRN (Reason: Wheezing) cetirizine 10 mg tablet 1 tab PO BEDTIME lorazepam 0.5 mg tablet 0.5 mg PO BEDTIME PRN (Reason: anxiety) pantoprazole 40 mg tablet,delayed release (DR/EC) 1 tab PO DAILY@0630 gabapentin 600 mg tablet 1,200 mg PO TID citalopram 20 mg tablet 30 mg PO BEDTIME mirtazapine 30 mg tablet 30 mg PO BEDTIME Biktarvy 50-200-25 mg tablet 1 tab PO QAM ondansetron HCl 4 mg tablet 4 mg PO Q6-8H PRN (Reason: nausea/vomiting) acetaminophen 500 mg tablet 500 mg PO Q6H PRN (Reason: mild pain) ibuprofen 400 mg Tablet 400 mg PO TID PRN (Reason: Fever Or Pain) albuterol sulfate [Ventolin HFA] 90 mcg/actuation HFA aerosol inhaler 2 puff INHALATION Q6H PRN (Reason: wheezing) montelukast 10 mg tablet 10 mg PO BEDTIME Discharge Orders: Discharge Order (Routine); Ordered 02/14/25 Ordered By: Sy Neal Diet: Advance to usual diet Activity on Discharge: As tolerated Stand Alone Forms: Patient Portal Discharge page Print Language: [place] Activity Restrictions/Additional Instructions: Your blood work was unremarkable except for an elevated alcohol level of 211. The CT scan of your head and neck did not reveal any skull fracture, bleeding in the brain, neck fracture. Your symptoms are consistent with a concussion. Take meclizine 25 mg pills, 1 pill 3 times a day for the next 3 days for dizziness then as needed for dizziness. ?This medication will make you sleepy. ?Do not drive or work while taking this medication. Take Zofran ODT 4 mg pills, 1 pill dissolved in your mouth every 8 hours as need ed for nausea and vomiting. Take ibuprofen 400 mg pills, 1 pills every 6 hours as needed for pain or fever. Take Tylenol (acetaminophen) 500 mg pills, 2 pills every 6 hours as needed for pain or fever. Apply ice for 10-15 minutes 4 to 6 times a day to the bump (hematoma) on your forehead. Do this for the next 2 days to help reduce the swelling. You may develop 2 black eyes, black and blueness of your face or neck. This has part of the healing process from this hematoma and you do not need to come back to the emergency department if you notice increased black and blueness. Follow-up with your doctor in 2 days. Please return to the emergency department if your symptoms get worse or if you develop any symptoms that are concerning to you. Care Plan Goals: recovery Health Concerns: concussion Plan of Treatment: see above Assessment: see above Patient Instructions: Concussion (ED)
--- NOTE | 2025-02-14 10:06 | P.F2F_ITS ---
Service Date Service Date: 02/14/25 Encounter Date of encounter: 02/14/25 Reasons for Services Signs and symptoms assessed: headache, nausea Reason for physical therapy: home safety and mobility and therapeutic exercises Homebound: Leaving the home is medically contraindicated at this time without the asist of a device and/or another person due th the listed conditions above and below. Reason homebound: poor balance / fall risk Certification: Based on the above findings, I certify that this patient is confined to the home and needs intermittent [facility] care, physical therapy and/or speech therapy, or continues to need occupational therapy. The patient is under my care, and I have initiated the establishment of the plan of care. The patient will be followed by a physician who will periodically review the plan of care. Time Spent With Patient Time: Total time managing care of this patient today ____ minutes.
[2025-02-14 12:00] VITALS: BP 126/59; PULSE 70; RESP 16; TEMP 36.4; O2SAT 96
--- NOTE | 2025-02-14 13:32 | MHC.CM.PN ---
Addendum entered by Kaylah Chaney 02/14/25 14:36: [facility] has accepted Patient; MD has been made aware. Addendum entered by Kaylah Chaney 02/14/25 13:48: CM has informed . Original Note: Patient has been medically cleared for dc to home today, with services. 22 [facility] referrals have been made, with no accepting [facility], as of yet. CM will follow.
== END 2025-02-14 12:30 | disposition home health service (06) | DRG 57 ==
LOC: HO.ED 09:47 → HO.EDOVER 12:03 → HO.IMC 19:15
PROVIDERS: Admitting Provider Physician Assistant; Emergency Provider Emergency Medicine Emergency Medical Services; PCP General Practice; Visit Provider Internal Medicine
DX: S06.0X9A Concussion with loss of consciousness of unspecified duration, initial encounter (principal); F10.90 Alcohol use, unspecified, uncomplicated; W10.9XXA Fall (on) (from) unspecified stairs and steps, initial encounter; J45.909 Unspecified asthma, uncomplicated; K21.9 Gastro-esophageal reflux disease without esophagitis; Z21 Asymptomatic human immunodeficiency virus [HIV] infection status; Y90.7 Blood alcohol level of 200-239 mg/100 ml; Z87.891 Personal history of nicotine dependence; Z79.899 Other long term (current) drug therapy
CPT/HCPCS: 36415; 70450; 70551; 72125; 80048; 80053; 80307; 84484; 85025; 90715; 93005; 97162; 99285; J1650; J1885; J2270; J2405

== ENCOUNTER → 2025-02-13 03:14 | Outpatient (BNV) | payer MEDICAID, SELFPAY | PROVIDERS: Emergency Provider Emergency Medicine Emergency Medical Services; PCP General Practice; Visit Provider Radiology Diagnostic Radiology | DX: S00.03XA Contusion of scalp, initial encounter (principal); R90.82 White matter disease, unspecified; S06.9XAA Unspecified intracranial injury with loss of consciousness status unknown, initial encounter; W19.XXXA Unspecified fall, initial encounter | CPT/HCPCS: 70450; 70551; 72125 ==

== ENCOUNTER → 2025-02-13 08:15 | Outpatient (BNV) | payer MEDICAID, SELFPAY | PROVIDERS: Admitting Provider Physician Assistant; Emergency Provider Emergency Medicine Emergency Medical Services; PCP General Practice; Visit Provider Internal Medicine | DX: R00.0 Tachycardia, unspecified (principal) | CPT/HCPCS: 93010 ==

== ENCOUNTER → 2025-02-13 11:43 | Outpatient (BNV) | payer MEDICAID, SELFPAY | PROVIDERS: Admitting Provider Physician Assistant; Emergency Provider Emergency Medicine Emergency Medical Services; PCP General Practice; Visit Provider Physician Assistant | DX: S09.90XA Unspecified injury of head, initial encounter (principal); F07.81 Postconcussional syndrome | CPT/HCPCS: 99223; 99239; G0180 ==

== ENCOUNTER → 2025-02-13 11:43 | Outpatient (BNV) | payer MEDICAID, SELFPAY | PROVIDERS: Admitting Provider Physician Assistant; Emergency Provider Emergency Medicine Emergency Medical Services; PCP General Practice; Visit Provider Psychiatry & Neurology Neurology | DX: S09.90XA Unspecified injury of head, initial encounter (principal) | CPT/HCPCS: 99222 ==

== ENCOUNTER 2025-02-16 09:17 | Emergency (ER) | payer MEDICAID, SELFPAY ==
[2025-02-16 09:27] VITALS: BP 118/70; BP 181/85; PULSE 72; PULSE 90; RESP 12; TEMP 37.1; O2SAT 97; O2SAT 99; BMI 35.9
[2025-02-16 09:50] LABS: Basophils Percent Auto 0.3 % (0-2); Eosinophils Absolute Auto 0.1 X10*3/uL (0.0-0.4); Hematocrit 42.2 % (37.0-47.0); Hemoglobin 14.6 g/dl (12.0-16.0); Imm Gran Abs Auto 0.03 X10*3/uL (0.00-0.03); Imm Gran Pct Auto 0.3 % (0.0-0.4); Lymphocytes Absolute Auto 3.9 X10*3/uL (1.2-4.9); Lymphocytes Percent Auto 42.7 % (20-40); MANUAL DIFF FLAG NO; Mean Corpuscular HGB Conc 34.6 g/dl (31.0-35.0); Mean Corpuscular Hemoglobin 30.9 pg (27.0-33.0); Mean Corpuscular Volume 89.4 fL (80.0-98.0); Mean Platelet Volume 12.1 fL (9.4-12.3); Monocytes Absolute Auto 0.6 X10*3/uL (0.1-1.2); Monocytes Percent Auto 6.6 % (2-11); Neutrophils Absolute Auto 4.5 x10*3/uL (2.0-8.3); Neutrophils Percent Auto 49.1 % (45-73); Platelet Count 212 X10*3/uL (160-400); Red Blood Count 4.72 X10*6/uL (4.20-5.50); Red Cell Distribution Width 13.8 % (11.0-16.0); White Blood Count 9.2 X10*3/uL (4.8-10.8)
[2025-02-16 10:12] LABS: Alanine Aminotransferase 168 U/L (0-31); Albumin Level 4.4 g/dL (3.5-5.0); Alkaline Phosphatase 115 U/L (39-117); Anion Gap 15 (12-20); Aspartate Amino Transferase 59 U/L (5-31); Bilirubin Total 0.7 mg/dL (0.0-1.0); Blood Urea Nitrogen 8 mg/dL (9-16); Calcium 9.4 mg/dL (8.4-10.2); Carbon Dioxide 22 mmol/L (22-29); Chloride 108 mmol/L (96-108); Creatinine Clr Calc Pharmacy 79.2; Estimated Glomerular Filt Rate > 60; Glucose Random 127 mg/dL (60-115); Potassium 3.6 mmol/L (3.3-5.1); Sodium 141 mmol/L (135-145); Total Protein 7.4 g/dL (6.5-8.0)
--- NOTE | 2025-02-16 10:12 | ED_ITS ---
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 Patient was evaluated at our facility on 02/13/25 for injuries sustained during a mechanical fall while intoxicated. During ED stay, she was complaining of headache, intractable vertigo with nausea and vomiting. CT of head and C-spine were normal. She was eventually admitted to the hospitalist service for intractable vertigo. She had a normal brain MRI during admission. She was discharged 2 days ago on 02/14/25 with a prescription for zofran, meclizine, tylenol and motrin. Advised to follow up with PCP and neurology. Patient reports her symptoms had improved while being treated with meclizine during admission. She felt well on discharge. On asking if she has been taking her prescribed medications, she tells me that nothing was sent to her pharmacy. Her at bedside confirms this. She reports continued vertigo-like symptoms of room spinning dizziness, nausea and vomiting. Symptoms are unchanged and not worsening. No vision changes. Denies any falls/injuries/head strikes after being discharged from our facility. She denies fever, chills, headaches, vision changes, abdominal pain, diarrhea, constipation, urinary symptoms, chest pain, palpitations. vmware administrator utilized throughout visit to communicate with patient Related Data Home Medications ?Medication ?Instructions ?Recorded ?Confirmed albuterol sulfate 2.5 mg/3 mL 1 amp inhalation Q6H PRN Wheezing 02/07/21 02/13/25 (0.083 %) solution for nebulization cetirizine 10 mg tablet 1 tab PO BEDTIME 02/07/21 02/13/25 clonidine HCl 0.1 mg tablet 0.2 mg PO BEDTIME 02/07/21 02/13/25 lorazepam 0.5 mg tablet 0.5 mg PO BEDTIME PRN anxiety 02/07/21 02/13/25 pantoprazole 40 mg tablet,delayed 1 tab PO DAILY@0630 02/07/21 02/13/25 release montelukast 10 mg tablet 10 mg PO BEDTIME 12/17/21 02/13/25 acetaminophen 500 mg tablet 500 mg PO Q6H PRN mild pain 02/13/25 02/13/25 albuterol sulfate 90 mcg/actuation 2 puff inhalation Q6H PRN wheezing 02/13/25 02/13/25 aerosol inhaler (Ventolin HFA) bictegravir 50 mg-emtricitabine 1 tab PO QAM 02/13/25 02/13/25 200 mg-tenofovir alafenam 25 mg tablet (Biktarvy) citalopram 20 mg tablet 30 mg PO BEDTIME 02/13/25 02/13/25 gabapentin 600 mg tablet 1,200 mg PO TID 02/13/25 02/13/25 ibuprofen 400 mg tablet 400 mg PO TID PRN Fever Or Pain 02/13/25 02/13/25 mirtazapine 30 mg tablet 30 mg PO BEDTIME 02/13/25 02/13/25 ondansetron HCl 4 mg tablet 4 mg PO Q6-8H PRN nausea/vomiting 02/13/25 02/13/25 Previous Rx's ?Medication ?Instructions ?Recorded Wig #1 ea 05/08/21 mastectomy bra (bra, mastectomy) #1 ea 05/08/21 vitamin B complex-folic acid 0.4 1 tab PO BEDTIME #90 tabs 08/15/24 mg tablet (B Complex 1 (with folic acid)) meclizine 25 mg tablet 25 mg PO TID PRN dizziness #30 tabs 02/16/25 ondansetron 4 mg disintegrating 4 mg PO DAILY PRN nausea and 02/16/25 tablet vomiting 5 days #10 tabs Allergies Allergy/AdvReac Type Severity Reaction Status Date / Time codeine [Codeine] Allergy Mild RASH Verified 02/16/25 09:31 Review of Systems 2 Review of Systems: Yes all other systems are reviewed and are negative PMFSH Past Medical History Attestation statement: The following information was validated with the patient. Source: old records reviewed and nursing notes reviewed Medical History GERD (gastroesophageal reflux disease) HIV (human immunodeficiency virus infection) Depression Asthma Surgical History History of left breast implant Hx of left mastectomy History of lumpectomy of left breast History of excision of mass History of hysterectomy Family History Family History Maternal Uncle Leukemia Sister Melanoma Mother S/P triple vessel bypass Heart disease Alzheimer disease Daughter Asthma Social History Social History Household Members: Family Housing: Apartment Are you a primary intensive care unit nurse to a significant other at home: No Do you presently have visiting nurse or other home services: No Alcohol intake: current Alcohol intake frequency: does not drink Alcohol type: beer Patient Tobacco Use Status: Former Tobacco user Second Hand Smoke Exposure: No Advance Directives: No Advance Directives Information Provided: Yes service: No Current occupational status: unemployed Physical Exam ED Vital Signs: Vital Signs - 24 hr 02/16/25 09:27 02/16/25 12:09 02/16/25 12:21 Temperature 98.7 F 97.9 F Pulse Rate 90 70 Respiratory Rate 12 20 Blood Pressure 181/85 H 118/49 L 112/57 L Pulse Oximetry 99 Oxygen Delivery Method Room Air 02/16/25 14:53 02/16/25 15:31 Temperature 98.5 F 98.5 F Pulse Rate 62 62 Respiratory Rate 18 18 Blood Pressure 129/68 129/68 Pulse Oximetry 99 Oxygen Delivery Method Room Air BMI result Body Mass Index 35.9 vital signs stable General: Well appearing, in no acute distress. Skin: Warm, dry, intact. No rashes or lesions. Head: +healing bilateral periorbital ecchymosis. no palpable skull fractures or hemtoma. no battles sign. EENT: Hearing is intact b/l. Conjunctiva clear. PERRLA. EOM intact. Moist mucous membranes. Cardiac: Chest wall symmetric. RRR. Lungs: Normal respiratory effort without accessory muscle use. CTA bilaterally. Abdomen: Soft, non-tender, non-distended. No rebound tenderness or guarding. Positive BS x4. Back: No midline spinous or paraspinal tenderness. No step off deformity. Ext: Upper and lower extremities atraumatic, without tenderness, deformity, swelling or erythema. Full ROM throughout. Neuro: AOx3. Normal speech. NIH 0. Normal [id number]-[id number], [id number]. Strength 5/5 intact throughout. Sensation intact to light touch. Ambulating with steady gait. Course Course Course Narrative: CBC without leukocytosis or left shift. No anemia. H&H stable. Chemistry without acute electrolyte abnormality requiring intervention. No PENNY. Random glucose 127. Liver function around baseline. > patient's symptoms are consistent with continued vertigo. she had a brain MR on 02/13/25 which did not demonstrate intracranial hemorrhage, infarction mass effect or edema. > on re-evaluation, she reports significant improvement in symptoms after receiving meclizine and IV fluids. She was ambulating with steady gait to the bathroom, unassisted. She states she feels well and would like to be discharged home. I feel this is reasonable. exam is nonfocal and cerebellum is intact. symptoms consistent with concussion v vertigo. Given recent brain MRI, I do not feel as though repeat imaging is warranted at this time. No new injury or trauma. No new or worsening symptoms. will send zofran + meclizine to pharmacy. educated on concussion protocol. neuro referral and PCP follow up advised. referral provided. Patient has remained stable throughout ED visit today. Discussed worrisome signs and symptoms and when to return to the ED. All questions answered at this time. Patient is agreeable with disposition and stable for discharge. Medications Administered Discontinued Medications Generic Name Dose Route Start Last Admin Trade Name Freq PRN Reason Stop Dose Admin Sodium Chloride 1,000 mls @ 999 mls/hr 02/16/25 10:45 02/16/25 10:48 Ns IV 02/16/25 11:45 999 mls/hr .Q1H1M HAWA Administration Meclizine HCl 25 mg 02/16/25 10:32 02/16/25 10:49 Meclizine Hcl 25 Mg Tablet PO 02/16/25 10:33 25 mg ONCE ONE Administration Medical Decision Making Medical Decision Making MDM Narrative: 54 year old female with pmhx significant for HIV (on tivicay and descovy), GERD, mood disorder, asthma, left sided breast cancer s/p left mastectomy and chemo, chemo-induced neuropathy presents to the ED today for evaluation of nausea, vomiting, and dizziness. Vital signs are stable. she is overall well appearing and in NAD. exam is nonfocal. cerebellum is intact. ambulating with steady gait. Differential diagnoses includes: anemia, electrolyte abnormality, hypoglycemia, dehydration, medication side effect, BPPV vs labrynthitis. No red flag features for central vertigo to include gradual onset, vertical/bidirectional or nonfatigable nystagmus, focal neurologic findings on exam (including inability to ambulate). Presentation not consistent with an acute [employer] infection, vertebral basilar artery insufficiency, cerebellar hemorrhage or infarction,?intracranial mass or bleed, temporal lobe epilepsy,?MS, trauma, complex migraine headache. I have also considered ACS, arrhythmia, PE (PERC ), pneumonia, UTI however unlikely. Plan: labs, trial of IVF +meclizine, supportive care, serial reassessment Differential Diagnosis Differential Diagnoses: The differential diagnosis associated with the presentation includes as above. Admission/Observation not indicated. Lab Data MDM Lab Attestation statement: I reviewed the patient's lab results. as above. 02/16/25 09:37 02/16/25 09:37 Labs: Lab Results 02/16/25 Range/Units 09:37 WBC 9.2 (4.8-10.8) X10*3/uL RBC 4.72 (4.20-5.50) X10*6/uL Hgb 14.6 (12.0-16.0) g/dl Hct 42.2 (37.0-47.0) % MCV 89.4 (80.0-98.0) fL MCH 30.9 (27.0-33.0) pg MCHC 34.6 (31.0-35.0) g/dl RDW 13.8 (11.0-16.0) % Plt Count 212 (160-400) X10*3/uL MPV 12.1 (9.4-12.3) fL Immature Gran % (Auto) 0.3 (0.0-0.4) % Neut % (Auto) 49.1 (45-73) % Lymph % (Auto) 42.7 H (20-40) % [place] % (Auto) 6.6 (2-11) % Eos % (Auto) 1.0 (0-4) % Baso % (Auto) 0.3 (0-2) % Lymph # (Auto) 3.9 (1.2-4.9) X10*3/uL [place] # (Auto) 0.6 (0.1-1.2) X10*3/uL Eos # (Auto) 0.1 (0.0-0.4) X10*3/uL Baso # (Auto) 0.0 (0.0-0.2) X10*3/uL Abs Immat Gran (auto) 0.03 (0.00-0.03) X10*3/uL Absolute Neuts (auto) 4.5 (2.0-8.3) x10*3/uL Absolute Nucleated RBC 0.000 (0.0-0.012) X10*3/uL Nucleated RBC % (auto) 0.0 (0.0-0.2) /100WBC Sodium 141 (135-145) mmol/L Potassium 3.6 (3.3-5.1) mmol/L Chloride 108 (96-108) mmol/L Carbon Dioxide 22 (22-29) mmol/L Anion Gap 15 (12-20) BUN 8 L (9-16) mg/dL Creatinine 0.79 (0.5-1.4) mg/dL Estim Creat Clear Calc 79.2 Estimated GFR > 60 Random Glucose 127 H (60-115) mg/dL Calcium 9.4 D (8.4-10.2) mg/dL Magnesium 2.1 (1.6-2.6) mg/dL Total Bilirubin 0.7 (0.0-1.0) mg/dL AST 59 H (5-31) U/L ALT 168 H (0-31) U/L Alkaline Phosphatase 115 (39-117) U/L Total Protein 7.4 (6.5-8.0) g/dL Albumin 4.4 (3.5-5.0) g/dL Lipase 32 (8-78) U/L Ethyl Alcohol < 10 mg/dL Independent Interpretation I performed an independent interpretation of an: CT Scan (MRI) Interpretation: brain MRI on 02/13/25 - no ischemia Radiology Impression Discussion of test interpretation with radiology: I have reviewed the radiologist's reading. Radiologist Impression: Procedure(s): MR head/brain wo con Accession Number(s): [id number] cc: Uma Ortiz; Beverly Young~ EXAMINATION: MR BRAIN WITHOUT CONTRAST CLINICAL INFORMATION: Concussion with LOC, abnormal neurological exam, intractable vertigo. COMPARISON: CT head dated earlier same day. No prior MRI. TECHNIQUE: MRI of the brain was obtained using routine sequences without contrast. Examination performed on a Siemens 1.5 Jennifer high-field scanner. FINDINGS: There is no diffusion restriction. There is no intracranial hemorrhage, acute infarction, mass effect, or edema. Ventricles, sulci, and cisterns are normal in size and configuration for patient age. No shift of midline. No abnormal hemosiderin deposition is identified. No evidence of diffuse axonal injury. There are a few scattered punctate foci of white matter T2 hyperintensity in the periventricular, subcortical, and hemispheric deep white matter, nonspecific. Midline structures appear normally formed. The pituitary gland appears normal. Posterior fossa structures appear normal. Cerebellar tonsils are appropriately located. Major flow voids are preserved within the skull base. The globes and orbital contents demonstrate no abnormalities. Paranasal sinuses are clear bilaterally. Nasal septum is midline without spur. The mastoids and tympanic cavities are normally aerated. Extracranial soft tissues demonstrate a small 6 mm frontal subgaleal scalp hematoma. No suspicious bone marrow changes are evident. Mild hyperostosis frontalis. Atlantoaxial joint is normal. MR/MR head/brain wo con IMPRESSION: 1. No evidence of intracranial hemorrhage, acute infarction, mass effect, or edema. 2. No evidence of diffuse axonal injury. 3. A few scattered foci of T2 signal hyperintensity in the hemispheric deep white matter, nonspecific but statistically most likely on the basis of mild small vessel ischemic changes. 4. Small 6 mm midline frontal scalp subgaleal hematoma. Electronically signed by: Justin Quinones MD 02/13/2025 02:07 PM EDT Independent Historian Clinical information obtained from an independent historian. History obtained from or confirmed by: Spouse External Record Review External record reviewed: Inpatient record, Office record and Outpatient record Prescription Management I considered prescription management with: Other (zofran, meclizine) Chronic Conditions Patient?s care impacted by: Other (vertigo) Social Determinants Patient?s care significantly limited by Social Determinants of Health including: Other Social Determinant of Health Critical Care Time Critical Care Time Critical Care Time: No Discharge Plan Discharge Clinical Impression: Dizziness, Concussion Patient Disposition: Home, Self-Care Instructions: Vertigo (ED), Concussion (ED), Post Concussion Syndrome (ED) Additional Instructions: You presented to the ED today for continued nausea and dizziness following a fall. Your work up today is reassuring. You report improvement in symptoms with IV fluids and meclizine. You have a concussion. see attached concussion protocol. rest your brain. limit screen time. drink plenty of fluids. Take meclizine 25 mg pills, 1 pill 3 times a day for the next 3 days for dizziness then as needed for dizziness. ?This medication will make you sleepy. ?Do not drive or work while taking this medication. Take Zofran ODT 4 mg pills, 1 pill dissolved in your mouth every 8 hours as needed for nausea and vomiting. Take over the counter ibuprofen 400 mg pills, 1 pills every 6 hours as needed for pain. Take over the counter Tylenol (acetaminophen) 500 mg pills, 2 pills every 6 hours as needed for pain. Follow-up with your primary care doctor this week. Please return to the emergency department if your symptoms get worse or if you develop any symptoms that are concerning to you. Prescriptions: New meclizine 25 mg tablet 25 mg PO TID PRN (Reason: dizziness) Qty: 30 0RF ondansetron 4 mg tablet,disintegrating 4 mg PO DAILY PRN (Reason: nausea and vomiting) 5 Days Qty: 10 0RF No Action (DME) bra, mastectomy Crystals Qty: 1 0RF Rx Instructions: As Directed (DME) Wig Kit Qty: 1 0RF Rx Instructions: As Directed vitamin B complex-folic acid [B Complex 1 (with folic acid)] 0.4 mg tablet 1 tab PO BEDTIME Qty: 90 2RF clonidine HCl 0.1 mg tablet 0.2 mg PO BEDTIME albuterol sulfate 2.5 mg /3 mL (0.083 %) solution for nebulization 1 amp inhalation Q6H PRN (Reason: Wheezing) cetirizine 10 mg tablet 1 tab PO BEDTIME lorazepam 0.5 mg tablet 0.5 mg PO BEDTIME PRN (Reason: anxiety) pantoprazole 40 mg tablet,delayed release (DR/EC) 1 tab PO DAILY@0630 gabapentin 600 mg tablet 1,200 mg PO TID citalopram 20 mg tablet 30 mg PO BEDTIME mirtazapine 30 mg tablet 30 mg PO BEDTIME Biktarvy 50-200-25 mg tablet 1 tab PO QAM ondansetron HCl 4 mg tablet 4 mg PO Q6-8H PRN (Reason: nausea/vomiting) acetaminophen 500 mg tablet 500 mg PO Q6H PRN (Reason: mild pain) ibuprofen 400 mg Tablet 400 mg PO TID PRN (Reason: Fever Or Pain) albuterol sulfate [Ventolin HFA] 90 mcg/actuation HFA aerosol inhaler 2 puff INHALATION Q6H PRN (Reason: wheezing) montelukast 10 mg tablet 10 mg PO BEDTIME Referrals: [facility] [place] Neuro/Sleep [Provider Group] - 3 days (post concussive syndrome) [facility] [Primary Care Provider] - Interventions: ED Discharge Assessment Last Done: 02/16/25 15:31 Discharge Date/Time: 02/16/25 15:31 Print Language: [place]
[2025-02-16 10:36] LABS: Lipase 32 U/L (8-78); Magnesium 2.1 mg/dL (1.6-2.6)
[2025-02-16] MEDS: 0.9 % Sodium Chloride 1,000 ML 999 ML IV (10:48)
[2025-02-16] MEDS: Meclizine HCl 25 MG TABLET PO (10:49)
[2025-02-16 10:50] LABS: Ethanol < 10 mg/dL
[2025-02-16 12:09] VITALS: BP 118/49; PULSE 70; RESP 20; TEMP 36.6
[2025-02-16 12:21] VITALS: BP 112/57
[2025-02-16 14:53] VITALS: BP 129/68; PULSE 62; RESP 18; TEMP 36.9
[2025-02-16 15:31] VITALS: BP 129/68; PULSE 62; RESP 18; TEMP 36.9; O2SAT 99
== END 2025-02-16 15:31 | disposition home or self-care (01) ==
PROVIDERS: Physician Assistant Medical; Emergency Provider Emergency Medicine
DX: R42 Dizziness and giddiness (principal); S06.0X0A Concussion without loss of consciousness, initial encounter; W19.XXXA Unspecified fall, initial encounter; R11.2 Nausea with vomiting, unspecified; B20 Human immunodeficiency virus [HIV] disease; R29.6 Repeated falls; Z91.81 History of falling; Y93.9 Activity, unspecified; Y92.9 Unspecified place or not applicable; Y99.9 Unspecified external cause status; Z79.899 Other long term (current) drug therapy
CPT/HCPCS: 36415; 80053; 80307; 83690; 83735; 85025; 99283

== ENCOUNTER 2025-04-27 10:19 | Outpatient (REF) | payer MEDICAID, SELFPAY ==
[2025-04-27 11:17] LABS: MANUAL DIFF FLAG NO
[2025-04-27 11:29] LABS: Basophils Percent Auto 0.7 % (0-2); Eosinophils Absolute Auto 0.1 X10*3/uL (0.0-0.4); Eosinophils Percent Auto 1.4 % (0-4); Hematocrit 42.4 % (37.0-47.0); Hemoglobin 14.2 g/dl (12.0-16.0); Imm Gran Abs Auto 0.02 X10*3/uL (0.00-0.03); Imm Gran Pct Auto 0.3 % (0.0-0.4); Lymphocytes Absolute Auto 2.8 X10*3/uL (1.2-4.9); Lymphocytes Percent Auto 49.1 % (20-40); Mean Corpuscular HGB Conc 33.5 g/dl (31.0-35.0); Mean Corpuscular Hemoglobin 30.9 pg (27.0-33.0); Mean Corpuscular Volume 92.4 fL (80.0-98.0); Mean Platelet Volume 12.4 fL (9.4-12.3); Monocytes Absolute Auto 0.4 X10*3/uL (0.1-1.2); Monocytes Percent Auto 7.5 % (2-11); Neutrophils Absolute Auto 2.3 x10*3/uL (2.0-8.3); Platelet Count 218 X10*3/uL (160-400); Red Blood Count 4.59 X10*6/uL (4.20-5.50); Red Cell Distribution Width 14.6 % (11.0-16.0); White Blood Count 5.7 X10*3/uL (4.8-10.8)
[2025-04-27 11:46] LABS: Alanine Aminotransferase 43 U/L (0-31); Albumin Level 4.6 g/dL (3.5-5.0); Alkaline Phosphatase 85 U/L (39-117); Anion Gap 10 (12-20); Aspartate Amino Transferase 28 U/L (5-31); Bilirubin Total 0.6 mg/dL (0.0-1.0); Blood Urea Nitrogen 9 mg/dL (9-16); Calcium 9.2 mg/dL (8.4-10.2); Carbon Dioxide 25 mmol/L (22-29); Chloride 107 mmol/L (96-108); Cholesterol 249 mg/dL (<200); Estimated Glomerular Filt Rate > 60; Glucose Random 103 mg/dL (60-115); HDL Cholesterol 63 mg/dL (>40); LDL Cholesterol Calculated 171 mg/dL (<100); Potassium 3.9 mmol/L (3.3-5.1); Sodium 138 mmol/L (135-145); Total Protein 7.3 g/dL (6.5-8.0); Triglycerides 76 mg/dL (<150)
[2025-04-27 11:59] LABS: Reflex LDLD? No
[2025-04-28 15:18] LABS: HIV RNA PCR Qn Copies <20 DETECTED copies/mL (NOT DETECTED); HIV RNA PCR Qn Log Copies <1.30 DETECTED (NOT DETECTED)
[2025-04-30 08:33] LABS: TS Negative Control Passed; TS Panel A 0; TS Panel B 0; TS Positive Control Passed; TSpotTB Negative (Negative)
[2025-05-02 14:54] LABS: Absolute CD3 Count 2611 cells/uL (840-3060); Absolute CD4 Count 707 cells/uL (490-1740); Absolute CD8 Count 1906 cells/uL (180-1170); Absolute Lymphocytes 2962 cells/uL (850-3900); CD4 CD8 Ratio 0.37 (0.86-5.00); Percent CD3 Cells 88 % (57-85); Percent CD4 Cells 24 % (30-61); Percent CD8 Cells 64 % (12-42)
== END 2025-04-27 10:20 | disposition home or self-care (01) ==
LOC: HO.HHCL 10:19
PROVIDERS: Visit Provider Internal Medicine
DX: Z21 Asymptomatic human immunodeficiency virus [HIV] infection status (principal)
CPT/HCPCS: 36415; 80053; 80061; 85025; 86359; 86360; 86481; 87536

== ENCOUNTER 2025-05-05 15:25 | Outpatient (REF) | payer MEDICAID, SELFPAY ==
[2025-05-05 16:08] LABS: MANUAL DIFF FLAG NO
[2025-05-05 16:16] LABS: Basophils Percent Auto 0.4 % (0-2); Eosinophils Absolute Auto 0.1 X10*3/uL (0.0-0.4); Hematocrit 41.9 % (37.0-47.0); Hemoglobin 14.1 g/dl (12.0-16.0); Imm Gran Abs Auto 0.01 X10*3/uL (0.00-0.03); Imm Gran Pct Auto 0.1 % (0.0-0.4); Lymphocytes Absolute Auto 3.6 X10*3/uL (1.2-4.9); Lymphocytes Percent Auto 50.3 % (20-40); Mean Corpuscular HGB Conc 33.7 g/dl (31.0-35.0); Mean Corpuscular Hemoglobin 31.1 pg (27.0-33.0); Mean Corpuscular Volume 92.3 fL (80.0-98.0); Mean Platelet Volume 12.7 fL (9.4-12.3); Monocytes Absolute Auto 0.5 X10*3/uL (0.1-1.2); Monocytes Percent Auto 7.4 % (2-11); Neutrophils Absolute Auto 2.9 x10*3/uL (2.0-8.3); Neutrophils Percent Auto 40.8 % (45-73); Platelet Count 209 X10*3/uL (160-400); Red Blood Count 4.54 X10*6/uL (4.20-5.50); Red Cell Distribution Width 13.7 % (11.0-16.0); White Blood Count 7.2 X10*3/uL (4.8-10.8)
[2025-05-05 16:51] LABS: TSH reflex Free T4 1.46 uIU/mL (0.32-4.0)
[2025-05-06 08:35] LABS: Lutenizing Hormone 25.3 mIU/mL
[2025-05-11 17:03] LABS: Estrogen 115 pg/mL
== END 2025-05-05 15:26 | disposition home or self-care (01) ==
LOC: HO.HHCL 15:25
PROVIDERS: PCP General Practice; Visit Provider General Practice
DX: E89.41 Symptomatic postprocedural ovarian failure (principal)
CPT/HCPCS: 36415; 82672; 83001; 83002; 84443; 85025

== ENCOUNTER 2025-06-01 08:33 | Outpatient (REF) | payer MEDICAID, SELFPAY ==
--- NOTE | ~2025-06-01 | MM_ITS ---
EXAMINATION: DXA BONE DENSITY AXIAL HISTORY: HIV POSITIVE ON ART/OSTEOPOROSIS TECHNIQUE: [employer] Dual energy absorptiometry (DEXA) of the lumbar spine, total left hip, and femoral neck was performed. COMPARISON: Comparison is made with the prior examination dated 05/17/2021. FINDINGS: The bone mineral density of the lumbar spine is 0.988 g/cm2, corresponding to a T-score of -1.6, and a Z-score of -1.3. This is indicative of osteopenia. This represents a BMD change of -11.8% compared to the prior exam. This is statistically significant. The bone mineral density of the left total hip is 1.079 g/cm2, corresponding to a T-score of 0.6, and a Z-score of 0.8. This is indicative of normal bone mineral density. This represents a BMD change of 0.8% compared to the prior exam. This is not statistically significant. The bone mineral density of the left femoral neck is 0.956 g/cm2, corresponding to a T-score of -0.6, and a Z-score of 0.1. This is indicative of normal bone mineral density. This represents a BMD change of -0.2% compared to the prior exam. FRACTURE RISK: The FRAX index suggests a ten year probability of major osteoporotic fracture of 3.0%, and of hip fracture 0.1%. MM/XR DEXA axial skeleton IMPRESSION: Based on bone mineral density, and according to World Health Organization (WHO) criteria, the diagnosis is consistent with osteopenia. Statistically, 68% of repeat scans fall within 1 SD (+/- 0.010 g/cm2 for AP spine L1-L4) and 1 SD (+/- 0.012 g/cm2 for femur total) FRAX is a trademark of the [employer]'s [place] [employer] Met[employer], a World Health Organization (WHO) Collaborating Center. Electronically signed by: Kee Clarke MD 06/01/2025 09:21 AM EDT
== END 2025-06-01 08:34 | disposition home or self-care (01) ==
LOC: HO.MAMMO 08:33
PROVIDERS: PCP General Practice; Visit Provider General Practice
DX: Z13.820 Encounter for screening for osteoporosis (principal); Z21 Asymptomatic human immunodeficiency virus [HIV] infection status; M89.9 Disorder of bone, unspecified; M85.88 Other specified disorders of bone density and structure, other site
CPT/HCPCS: 77080

== ENCOUNTER → 2025-06-01 08:45 | Outpatient (BNV) | payer MEDICAID, SELFPAY | PROVIDERS: PCP General Practice; Visit Provider Radiology Diagnostic Radiology | DX: E28.39 Other primary ovarian failure (principal) | CPT/HCPCS: 77080 ==

== ENCOUNTER 2025-07-25 10:50 | Outpatient (REF) | payer MEDICAID, SELFPAY ==
[2025-07-25 12:58] LABS: Hemoglobin A1C 148.7317 umol/L; Total Hemoglobin (HGBA1C) 3812.0112 umol/L
[2025-07-25 13:03] LABS: Hemoglobin 14.7 g/dl (12.0-16.0); Mean Corpuscular Volume 89.9 fL (80.0-98.0); NRBC Abs Auto 0.000 X10*3/uL (0.0-0.012); NRBC Pct Auto 0.0 /100WBC (0.0-0.2); SCAN SMEAR FLAG 1
[2025-07-25 13:05] LABS: Hematocrit 42.6 % (37.0-47.0); Imm Gran Abs Auto 0.02 X10*3/uL (0.00-0.03); Imm Gran Pct Auto 0.3 % (0.0-0.4); Lymphocytes Absolute Auto 3.5 X10*3/uL (1.2-4.9); MANUAL DIFF FLAG SCAN; Mean Corpuscular HGB Conc 34.5 g/dl (31.0-35.0); Mean Corpuscular Hemoglobin 31.0 pg (27.0-33.0); PLT CLUMP 1; Red Blood Count 4.74 X10*6/uL (4.20-5.50)
[2025-07-25 13:10] LABS: PLT ABN DIST 1
[2025-07-25 13:21] LABS: Anion Gap 12 (12-20); Blood Urea Nitrogen 8 mg/dL (9-16); Calcium 9.1 mg/dL (8.4-10.2); Carbon Dioxide 26 mmol/L (22-29); Chloride 108 mmol/L (96-108); Estimated Glomerular Filt Rate > 60; Potassium 3.8 mmol/L (3.3-5.1); Sodium 142 mmol/L (135-145)
[2025-07-25 13:29] LABS: Platelet Count 176 X10*3/uL (160-400); White Blood Count 6.9 X10*3/uL (4.8-10.8)
[2025-07-25 13:58] LABS: Folate 10.6 ng/mL (> or = 4.0); Vitamin B12 283 pg/mL (200-900)
[2025-07-27 22:33] LABS: Prot Elec - Albumin 4.7 g/dL (3.8-4.8); Prot Elec - Alpha1 0.2 g/dL (0.2-0.3); Prot Elec - Alpha2 0.7 g/dL (0.5-0.9); Prot Elec - Beta 1 0.4 g/dL (0.4-0.6); Prot Elec - Beta 2 0.4 g/dL (0.2-0.5); Prot Elec - Gamma 1.1 g/dL (0.8-1.7); Prot Elec - Total Protein 7.5 g/dL (6.1-8.1)
[2025-07-28 18:38] LABS: Arsenic, Blood <3 mcg/L (<23); Lead, Blood <1.0 mcg/dL (<3.5); Mercury, Blood <4 mcg/L (<=10)
== END 2025-07-25 10:51 | disposition home or self-care (01) ==
LOC: HO.LAB 10:50
PROVIDERS: PCP General Practice; Visit Provider Nurse Practitioner
DX: R42 Dizziness and giddiness (principal); H93.19 Tinnitus, unspecified ear; R20.2 Paresthesia of skin; R29.818 Other symptoms and signs involving the nervous system
CPT/HCPCS: 36415; 80048; 82175; 82607; 82746; 83036; 83655; 83825; 83921; 84165; 85025; 99202

== ENCOUNTER 2025-07-25 10:50 | Outpatient (AMB) | payer MEDICAID, SELFPAY ==
--- NOTE | 2025-07-25 10:53 | A.OFFVIS_ITS ---
Vital Signs 07/25/25 10:58 Height 5 ft 4 in Weight 184 lb BMI 31.6 BP 120/72 Blood Pressure Location Lt brachial Position Sitting Respiration 16 Pulse 62 Pulse Oximetry (%) 99 Intake Visit Reasons: INP-Peripheral Vertigo, Unspecified laterality, Inpatient Follow Up Accompanied by: Spouse Allergies codeine (Codeine) Allergy (Mild, Verified 07/25/25 10:58) RASH Medication List - Last Reconciled 07/25/25 by Tracy Sullivan CNP acetaminophen 500 mg PO Q6H PRN albuterol sulfate 1 amp inhalation Q6H PRN albuterol sulfate 90 mcg/actuation (Ventolin HFA) 2 puffs inhalation Q6H PRN tdnnuopfd-mdpkyres-ihmpjwg ala 50-200-25 mg (Biktarvy) 1 tab PO QAM cetirizine 1 tab PO BEDTIME citalopram 30 mg PO BEDTIME clonidine HCl 0.2 mg PO BEDTIME gabapentin 1,200 mg PO TID ibuprofen 400 mg PO TID PRN lorazepam 0.5 mg PO BEDTIME PRN mastectomy bra (bra, mastectomy) As Directed meclizine 25 mg PO TID PRN mirtazapine 30 mg PO BEDTIME montelukast 10 mg PO BEDTIME ondansetron 4 mg PO DAILY PRN 5 days ondansetron HCl 4 mg PO Q6-8H PRN pantoprazole 1 tab PO DAILY@0630 vitamin B complex-folic acid 0.4 mg (B Complex 1 (with folic acid)) 1 tab PO BEDTIME Wig As Directed HPI Comments Details: Mima is a 54 year old female patient with a past medical history of vertigo, invasive ductal carcinoma of the left breast status post left mastectomy who presents today for an evaluation of dizziness, vertigo, and imbalance. In January of 2025, she was evaluated in the [facility] Emergency room after a fall. She was intoxicated with alcohol at home and became imbalanced and fell resulting in a head strike. She was seen in the [place] [facility] at which time CT scans of the head and neck were performed without any acute fractures or intracranial bleeding. Symptoms were consistent with a concussion. 01/2025 CT brain reviewed by this provider with no obvious atrophy or acute abnormalities. She tells me that she does have a history of longstanding vertigo though in past years prior to her fall in January of 2025, her vertigo was only intermittent occurring perhaps less than every month and was much less severe. In the past, her vertigo was triggered by positional changes. After her fall in January her vertigo became much worse. She has difficulty with positional changes and Cabrera head movements. This does trigger vertigo and sense of room spinning. She also feels that when she is ambulating she has difficulty keeping her balance. She denies any further falls though does note sometimes where she had some close calls though caught herself from falling. In addition to her vertigo and imbalance symptoms, she reports that she has had a little bit puzzling/hissing sound in her ears and once in awhile she will feel a pop after which she will feel a sensation of liquid in her ear. She has not been seen by Ear Nose and Throat. She also notes some paresthesias bilaterally to both her fingertips and toes. She describes this as an intermittent feeling that there are ants crawling under her skin. She denies any long-lasting numbness sensations though intermittently will have a feeling of numbness to her extremities. This happens only episodically. She denies any back pain or neck pain. She is not currently having any headaches. She also denies double vision or any vision changes. Social: Lives home with significant other ETOH: Stopped drinking in February. Prior to this would drink on weekends Tobacco: None Substance use: None [facility] Medical History (Updated 07/25/25 @ 14:52 by Tracy Sullivan CNP) Peripheral vertigo GERD (gastroesophageal reflux disease) HIV (human immunodeficiency virus infection) Depression Asthma Surgical History History of left breast implant Hx of left mastectomy History of lumpectomy of left breast History of excision of mass History of hysterectomy Family History Maternal Uncle Leukemia Sister Melanoma Mother S/P triple vessel bypass Heart disease Alzheimer disease Daughter Asthma Social History Household Members: Family Housing: Apartment Are you a primary healthcare facility administrator to a significant other at home: No Do you presently have visiting nurse or other home services: No Alcohol intake: current Alcohol intake frequency: does not drink Alcohol type: beer Patient Tobacco Use Status: Former Tobacco user Second Hand Smoke Exposure: No service: No Current occupational status: unemployed Review of Systems Const Reports as per HPI Neuro Reports Sensory deficit (Neuro) (Absent sensation to bilateral great toes with filament. ) Physical Exam Vital Signs: Last Vital Signs Pulse 62 07/25/25 10:58 Resp 16 07/25/25 10:58 BP 120/72 07/25/25 10:58 Pulse Ox 99 07/25/25 10:58 BMI result Body Mass Index 31.6 Const General: cooperative, healthy appearing, comfortable and no acute distress Nutritional Appearance: well nourished Orientation/consciousness: patient oriented x3 Limitations: no limitations HEENT Head: Yes normal to inspection and Yes normocephalic Eyes General: appearance normal, both eyes and all related structures Periorbital: periorbital findings normal Eyelids: Yes eyelids normal Conjunctivae: conjunctivae normal Sclerae: sclerae normal Direct Ophthalmoscopy: normal light reflex, no papilledema and fundi normal bilaterally Neck Neck: Yes normal visual inspection and Yes full ROM General: Yes no CVA tenderness Back/Spine/Pelvis Back: no CVA tenderness Cervical Spine: normal cervical lordosis Thoracic/Lumbar Spine: thoracic and lumbar spine normal to inspection Neuro General: patient oriented x3 and tone normal Cranial nerves: Yes CN's II-XII intact bilaterally and Yes Facial sensation intact/muscles of mastication intact Cognition (Neuro): normal cognition Motor exam (neuro): 5/5 motor strength present throughout and no tremor noted Sensory Exam: Sensory deficit (Neuro) (Absent sensation to bilateral great toes with filament. ) and sensory level loss detected (Left great toe decreased vibratory sensation) Deep tendon reflexes (DTR's): Right triceps reflex intensity grade: 2+, Left triceps reflex intensity grade: 2+, Rt Biceps (C5, C6): 2+, Left biceps reflex intensity grade: 2+, Right brachioradialis reflex intensity grade: 2+, Left brachioradialis reflex intensity grade: 2+, Right patellar reflex intensity grade: 3+, Left patellar reflex intensity grade: 0, Right ankle reflex intensity grade: 1+ and Left ankle reflex intensity grade: 1+ Plantar Reflex Responses: downgoing: bilateral Coordination: [id number] test normal and tandem gait normal Romberg Test: Negative Pupils: Normal pupillary reactivity/response: bilateral Psych Appearance: grossly normal Mental Status: mental status grossly normal Speech and movement: Normal speech and movement present and Clear speech present Affect: normal affect Attitude: cooperative Thought process: Normal thought process present Thought content: Normal thought content present Insight: Good insight present (Psych) Judgement: Good judgement present (Psych) Assessment & Plan Assessment & Plan (1) Vertigo: Code(s): R42 - Dizziness and giddiness Category: Medical (2) Tinnitus: Code(s): H93.19 - Tinnitus, unspecified ear Category: Medical (3) Paresthesias: Code(s): R20.2 - Paresthesia of skin Category: Medical (4) Absent reflex of lower extremity: Code(s): R29.818 - Other symptoms and signs involving the nervous system Category: Medical Plan Mima is a 54-year-old female patient with a past medical history of vertigo, invasive ductal carcinoma of the left breast status post left mastectomy presenting for an evaluation of dizziness, vertigo and imbalance. In January of 2025 she had a fall at home while intoxicated leading to a head strike after which she has had worsening of her vertigo. She does have some difficulty with eye movements on exam and cardinal eye movements do trigger the vertigo. I think it would be reasonable for her to trial vestibular physical therapy. She also mentions some tinnitus with intermittent fluid sensation in her ears for which I will refer her to ENT. Inner ear disease may also contribute to vertigo and imbalance. Furthermore, she does also mention bilateral upper and lower extremity paresthesias and on exam did have some sensory deficits to the left lower extremity. I will send her for a left lower extremity EMG and do some routine testing for neuropathy including labs. Sensory loss can also contribute to difficulties with maintaining balance. I will have her follow up in 3 months. Her alcohol intake was also discussed. Though she has since her fall stopped drinking alcohol, prior use of alcohol may contribute to some of her symptoms. She was encouraged to remain abstinent from alcohol. -LLE EMG r/o radiculopathy -Labs including B12, folate, CBC, CMP, A1c, methylmalonic acid, and heavy metal screen -Vestibular PT -ENT consult Orders: Orders Protein Electrophoresis, Serum Today R20.2 - Paresthesia of skin Folate Today R20.2 - Paresthesia of skin Vitamin B12 Today R20.2 - Paresthesia of skin Complete Blood Count Auto Diff Today R20.2 - Paresthesia of skin NE electromyogram (EMG) Today R20.2 - Paresthesia of skin, R29.818 - Other symptoms and signs involving the nervous system Hemoglobin A1c Today R20.2 - Paresthesia of skin Methylmalonic Acid Today R20.2 - Paresthesia of skin Basic Metabolic Panel Today R20.2 - Paresthesia of skin Heavy Metals Screen Blood Today R20.2 - Paresthesia of skin NE nerve conduction velocity Today R20.2 - Paresthesia of skin, R29.818 - Other symptoms and signs involving the nervous system PT Evaluation and Treatment Today R42 - Dizziness and giddiness Referrals Ear/Nose/Throat Referral H93.19 - Tinnitus, unspecified ear, R42 - Dizziness and giddiness Coding Level of Care Code New Pt Level 4 (40478) Diagnoses Vertigo R42 Tinnitus H93.19 Paresthesias R20.2 Absent reflex of lower extremity R29.818
[2025-07-25 10:58] VITALS: BP 120/72; PULSE 62; RESP 16; O2SAT 99; BMI 31.6
== END 2025-07-25 12:14 | disposition home or self-care (01) ==
LOC: HO.HSM 10:51
PROVIDERS: PCP General Practice; Visit Provider Nurse Practitioner
DX: R42 Dizziness and giddiness (principal); H93.19 Tinnitus, unspecified ear; R20.2 Paresthesia of skin; R29.818 Other symptoms and signs involving the nervous system
CPT/HCPCS: 99204

== ENCOUNTER 2025-08-15 08:42 | Outpatient (REF) | payer MEDICAID, SELFPAY ==
--- NOTE | 2025-08-15 08:47 | EMG_ITS ---
Chief complaint: Numbness and balance Reason for referral: Radiculopathy, polyneuropathy Referred by:?Tracy Sullivan CNP Procedure done: Left lower extremity NCS/EMG Impression: Normal motor and sensory nerve conduction velocities of the left lower extremity. Absent H reflexes bilaterally may be indicative of a proximal abnormality in the S1 reflexes are bilaterally, for which clinical correlation is suggested. EMG of the left L4-S1 innervated muscles is within normal limits with minimal denervated changes in the extensor digitorum brevis muscle. Please see detailed neurophysiological report MTDD
== END 2025-08-15 08:43 | disposition home or self-care (01) ==
LOC: HO.NEURO 08:42
PROVIDERS: PCP General Practice; Visit Provider Nurse Practitioner
DX: R20.2 Paresthesia of skin (principal); R29.818 Other symptoms and signs involving the nervous system
CPT/HCPCS: 95885; 95910

== ENCOUNTER → 2025-08-15 08:47 | Outpatient (BNV) | payer MEDICAID, SELFPAY | PROVIDERS: PCP General Practice; Visit Provider Psychiatry & Neurology Neurology | DX: G62.89 Other specified polyneuropathies (principal) | CPT/HCPCS: 95886; 95910 ==